=== PATIENT | female | born 1990 | race Caucasian/White ===

== ENCOUNTER 2021-02-22 08:52 | Emergency (ER) | payer BC ==
[2021-02-22 08:57] VITALS: TEMP 97.9
[2021-02-22] MEDS ORDERED: SODIUM CHLORIDE 0.9% 1,000 ML IV STA (09:09)
[2021-02-22 09:30] LABS: Basophils # (A) 0.1 k/uL (0-0.2); Basophils % (A) 1 %; Eosinophils # (A) 0.2 k/uL (0-0.7); Eosinophils % (A) 2 %; HCT 44.8 % (34.0-46.0); HGB 15.2 gm/dL (11.4-16.0); Lymphocytes # (A) 2.1 k/uL (1.0-4.8); Lymphocytes % (A) 22 %; MCH 29.7 pg (25.0-35.0); MCHC 33.8 g/dL (31.0-37.0); Mean Platelet Volume 7.3; Monocytes # (A) 0.4 k/uL (0-1.0); Monocytes % (A) 4 %; Neutrophils # (A) 6.4 k/uL (1.3-7.7); Neutrophils % (A) 68 %; Platelet Count 385 k/uL (150-450); RBC 5.09 m/uL (3.80-5.40); RDW 12.9 % (11.5-15.5); WBC 9.4 k/uL (3.8-10.6)
--- NOTE | 2021-02-22 09:38 | XR ---
EXAMINATION TYPE: XR foot complete LT DATE OF EXAM: 02/22/2021 COMPARISON: None HISTORY: Cellulitis, edema TECHNIQUE: Three-view left foot FINDINGS: There is diffuse soft tissue swelling present most notably along the dorsum of the foot. No underlying osseous abnormalities evident. Joint spaces are preserved. No acute fracture or disloca tion is evident. IMPRESSION: 1. Soft tissue swelling dorsum left foot can be compatible with patient's reported cellulitis. 2. No acute osseous abnormality.
[2021-02-22 09:42] LABS: ALT 31 U/L (4-34); AST 36 U/L (14-36); African American GFR (CKD) >90 (>60 ml/min/1.73 sqM); Albumin 4.7 g/dL (3.5-5.0); Alkaline Phosphatase 77 U/L (38-126); Anion Gap 9 mmol/L; Blood Urea Nitrogen 12 mg/dL (7-17); C Reactive Protein <0.5 mg/dL (<1.0); Calcium 9.6 mg/dL (8.4-10.2); Carbon Dioxide 23 mmol/L (22-30); Chloride 106 mmol/L (98-107); Glucose 105 mg/dL (74-99); Non-African American GFR(CKD) >90 (>60 ml/min/1.73 sqM); Potassium 4.4 mmol/L (3.5-5.1); Sodium 138 mmol/L (137-145); Total Bilirubin 0.6 mg/dL (0.2-1.3); Total Protein 7.9 g/dL (6.3-8.2)
--- NOTE | 2021-02-22 09:46 | ED ---
General Adult HPI - General Chief complaint: Extremity Problem,Nontraumatic Stated complaint: athlete's foot, increased swelling Time Seen by Provider: 02/22/21 08:58 Source: patient Mode of arrival: ambulatory Limitations: no limitations - History of Present Illness Initial comments: 30-year-old female presents to the emergency room for a chief complaint of left foot pain. Patient states for the past 2 days she has had pain mostly in the left second toe as well as the dorsum of the left foot. Patient states that she did go to urgent care and was treated for athlete's foot with a cream. Patient states that the pain has persisted and has not gotten better. Patient denies fevers or chills. Patient denies any medical history such as diabetes.Patient has no other complaints at this time including shortness of breath, chest pain, abdominal pain, nausea or vomiting, headache, or visual changes. - Related Data Previous Rx's Medication Instructions Recorded Cephalexin [Keflex] 500 mg PO Q6HR 10 Days #40 cap 02/22/21 Allergies Allergy/AdvReac Type Severity Reaction Status Date / Time No Known Allergies Allergy Verified 02/22/21 08:57 Review of Systems ROS Statement: Those systems with pertinent positive or pertinent negative responses have been documented in the HPI. ROS Other: All systems not noted in ROS Statement are negative. Past Medical History Past Medical History: No Reported History History of Any Multi-Drug Resistant Organisms: None Reported Past Surgical History: No Surgical Hx Reported Past Psychological History: No Psychological Hx Reported Smoking Status: Never smoker Past Alcohol Use History: None Reported Past Drug Use History: None Reported General Exam Limitations: no limitations General appearance: alert, in no apparent distress Head exam: Present: atraumatic Eye exam: Present: normal appearance, PERRL, EOMI. Absent: scleral icterus ENT exam: Present: normal exam, mucous membranes moist Neck exam: Present: normal inspection, full ROM. Absent: tenderness Respiratory exam: Present: normal lung sounds bilaterally. Absent: respiratory distress, wheezes Cardiovascular Exam: Present: regular rate, normal rhythm, normal heart sounds Extremities exam: Present: full ROM (Full range of motion of the left foot and all digits of the left foot), tenderness (Tenderness to the as well as the left second digit), normal capillary refill (Capillary refill less than 2 seconds, DP pulse 2+ left lower extremity.), other (She does have some mild edema of the left second digit as well as the dorsum of the left foot. Mild erythema to the dorsum of the left foot. No streaking redness.) Course Vital Signs 02/22/21 08:55 Temperature 97.9 F Pulse Rate 67 Respiratory 20 Rate Blood Pressure 145/89 O2 Sat by Pulse 99 Oximetry Medical Decision Making - Medical Decision Making Vitals are stable. HPI and physical exam as documented. Patient does have some mild edema and erythema dorsum of the left foot as well as swelling of the left second toe. Capillary refill less than 2 seconds. CBC CMP unremarkable. X- ray of the left foot does show mild edema. Patient was started on Keflex. She will continue cream for athlete's foot prescribed by urgent care. I did encourage her to keep the foot dry as this does appear to be irritating the toe. If patient's symptoms are not better in 48 hours she is aware she needs to return to the emergency room. - Lab Data Result diagrams: 02/22/21 09:20 02/22/21 09:20 Lab Results 02/22/21 02/22/21 02/22/21 Range/Units 09:20 09:20 09:20 WBC 9.4 (3.8-10.6) k/uL RBC 5.09 (3.80-5.40) m/uL Hgb 15.2 (11.4-16.0) gm/dL Hct 44.8 (34.0-46.0) % MCV 88.0 (80.0-100.0) fL MCH 29.7 (25.0-35.0) pg MCHC 33.8 (31.0-37.0) g/dL RDW 12.9 (11.5-15.5) % Plt Count 385 (150-450) k/uL MPV 7.3 Neutrophils % 68 % Lymphocytes % 22 % Monocytes % 4 % Eosinophils % 2 % Basophils % 1 % Neutrophils # 6.4 (1.3-7.7) k/uL Lymphocytes # 2.1 (1.0-4.8) k/uL Monocytes # 0.4 (0-1.0) k/uL Eosinophils # 0.2 (0-0.7) k/uL Basophils # 0.1 (0-0.2) k/uL Sodium 138 (137-145) mmol/L Potassium 4.4 (3.5-5.1) mmol/L Chloride 106 (98-107) mmol/L Carbon Dioxide 23 (22-30) mmol/L Anion Gap 9 mmol/L BUN 12 (7-17) mg/dL Creatinine 0.76 (0.52-1.04) mg/dL Est GFR (CKD-EPI)AfAm >90 (>60 ml/min/1.73 sqM) Est GFR (CKD-EPI)NonAf >90 (>60 ml/min/1.73 sqM) Glucose 105 H (74-99) mg/dL Plasma Lactic Acid Corby 1.3 (0.7-2.0) mmol/L Calcium 9.6 (8.4-10.2) mg/dL Total Bilirubin 0.6 (0.2-1.3) mg/dL AST 36 (14-36) U/L ALT 31 (4-34) U/L Alkaline Phosphatase 77 (38-126) U/L C-Reactive Protein <0.5 (<1.0) mg/dL Total Protein 7.9 (6.3-8.2) g/dL Albumin 4.7 (3.5-5.0) g/dL Disposition Clinical Impression: Cellulitis Disposition: HOME SELF-CARE Condition: Good Instructions (If sedation given, give patient instructions): Cellulitis (ED) Additional Instructions: Please take antibiotic as directed. Continue to apply cream as directed. Keep foot dry and try not to wear socks and shoes. Return to the emergency room for any worsening symptoms or if symptoms are not improving after 24-48 hours. Prescriptions: Cephalexin [Keflex] 500 mg PO Q6HR 10 Days #40 cap Is patient prescribed a controlled substance at d/c from ED?: No Referrals: Tod Willett MD [Primary Care Provider] - 1-2 days Time of Disposition: 10:15
[2021-02-22] MEDS ORDERED: cefTRIAXone IN SWFI 1,000 MG/10 ML SYRINGE IVP STA (10:15)
[2021-02-22 10:43] VITALS: BP 140/82; PULSE 79; RESP 18
== END 2021-02-22 10:43 | disposition home or self-care (01) ==
LOC: EC 08:52
DX: L03.116 Cellulitis of left lower limb (principal)
CPT/HCPCS: 99283; 96374; 96361; 36415; 80053; 83605; 85025; 86140; 73630; J0696

== ENCOUNTER 2021-02-23 19:25 | Inpatient (IN) | payer BC ==
[2021-02-23] MEDS ORDERED: PIPERACILLIN-TAZOBACTAM 3.375 GM in SODIUM CHLORIDE 0.9% 100 ML IVPB STA (21:27)
[2021-02-23] MEDS ORDERED: VANCOMYCIN IV PER PHARMACY 1 EACH MISC MISCELLANE PRN (21:29)
[2021-02-23] MEDS ORDERED: KETOROLAC 15 MG/ML 1 ML VIAL IVP STA (21:29)
[2021-02-23] MEDS ORDERED: SODIUM CHLORIDE 0.9% 500 ML 500 ML IV ONE (21:30)
[2021-02-23] MEDS ORDERED: VANCOMYCIN 1,500 MG in SODIUM CHLORIDE 0.9% 250 ML IVPB ONE (22:00)
--- NOTE | 2021-02-23 22:00 | XR ---
Result: History: Pain and swelling. Comparison: 02/22/2021. Technique: 3 views of the left foot. Findings: The bone mineralization is appropriate for age. No acute fracture or dislocation is seen. The visualized osseous structures are in anatomic alignmen t. The joint spaces are preserved. No radiographic evidence for osteomyelitis or soft tissue gas. Impression: No acute osseous abnormality or soft tissue gas.
[2021-02-23] MEDS: SODIUM CHLORIDE 0.9% 1,000 ML IV SCH (22:13)
--- NOTE | 2021-02-23 22:13 | ED ---
General Adult HPI - General Chief complaint: Extremity Problem,Nontraumatic Stated complaint: Revisit L Foot Cellulitis Time Seen by Provider: 02/23/21 21:14 Source: patient, RN notes reviewed, old records reviewed Mode of arrival: ambulatory Limitations: no limitations - History of Present Illness Initial comments: 30-year-old female who is otherwise healthy presenting for evaluation of left foot pain and swelling. Patient was treated for cellulitis started on Keflex. She states that her foot is continued to have worsened. She has purulent drain age from the second toe and from the base of the fourth and fifth toe. There is more soft tissue swelling more erythema and more pain. She denies fever or constitutional symptoms. She is a nondiabetic. - Related Data Previous Rx's Medication Instructions Recorded Cephalexin [Keflex] 500 mg PO Q6HR 10 Days #40 cap 02/22/21 Allergies Allergy/AdvReac Type Severity Reaction Status Date / Time No Known Allergies Allergy Verified 02/23/21 23:11 Review of Systems ROS Statement: Those systems with pertinent positive or pertinent negative responses have been documented in the HPI. ROS Other: All systems not noted in ROS Statement are negative. Past Medical History Past Medical History: No Reported History History of Any Multi-Drug Resistant Organisms: None Reported Past Surgical History: No Surgical Hx Reported Past Psychological History: No Psychological Hx Reported Smoking Status: Never smoker Past Alcohol Use History: None Reported Past Drug Use History: None Reported - Past Family History family \ Family Medical History: No Reported History General Exam Limitations: no limitations General appearance: alert, in no apparent distress Head exam: Present: atraumatic, normocephalic Eye exam: Present: normal appearance, PERRL Neck exam: Present: normal inspection. Absent: tenderness, meningismus Respiratory exam: Present: normal lung sounds bilaterally. Absent: respiratory distress Cardiovascular Exam: Present: regular rate, normal rhythm GI/Abdominal exam: Present: soft. Absent: distended, tenderness, guarding Extremities exam: Present: tenderness (Left foot with erythema, soft tissue swelling, purulent drainage. There is no crepitus. There is some induration without fluctuance in the distal left foot.), pedal edema Neurological exam: Present: alert, oriented X3, CN II-XII intact. Absent: motor sensory deficit Psychiatric exam: Present: normal affect, normal mood Skin exam: Present: warm, dry, intact. Absent: cyanosis, diaphoretic Course Vital Signs 02/23/21 02/23/21 02/24/21 19:48 23:28 03:00 Temperature 98.3 F Pulse Rate 75 70 77 Pulse Rate [ Pulse Oximetery ] Respiratory 18 18 18 Rate Blood Pressure 152/82 160/88 108/71 Blood Pressure [Left Arm] O2 Sat by Pulse 98 99 97 Oximetry 02/24/21 02/24/21 02/24/21 06:00 12:00 17:20 Temperature 98.7 F 98.4 F Pulse Rate 78 Pulse Rate [ 70 68 Pulse Oximetery ] Respiratory 16 17 Rate Blood Pressure 102/53 Blood Pressure 111/59 144/86 [Left Arm] O2 Sat by Pulse 97 99 100 Oximetry Medical Decision Making - Medical Decision Making 30-year-old female presenting with worsening left foot infection. She had been treated for cellulitis on outpatient antibiotics without improvement. Workup is initiated including CBC, blood cultures, CMP, lactic acid, CRP and repeat x-ray. Repeat x-rays negative for soft tissue gas. Patient started on Zosyn and vancomycin. Laboratory tests are pending. I did discuss case with Dr. Escobar who will admit. Infectious disease and orthopedics placed on consult. - Lab Data Result diagrams: 02/26/21 05:39 02/26/21 05:39 Lab Results 02/23/21 02/23/21 02/23/21 Range/Units 23:09 23:09 23:09 WBC 11.3 H (3.8-10.6) k/uL RBC 4.71 (3.80-5.40) m/uL Hgb 14.5 (11.4-16.0) gm/dL Hct 41.7 (34.0-46.0) % MCV 88.5 (80.0-100.0) fL MCH 30.7 (25.0-35.0) pg MCHC 34.7 (31.0-37.0) g/dL RDW 12.9 (11.5-15.5) % Plt Count 384 (150-450) k/uL MPV 7.2 Immature Gran % (Auto) % Absolute Nucleated RBC (0.00-0.00) X 10*3/uL Neutrophils % 72 % Lymphocytes % 19 % Monocytes % 5 % Eosinophils % 2 % Basophils % 1 % Immature Gran # (0.00-0.04) X 10*3/uL Neutrophils # 8.1 H (1.3-7.7) k/uL Lymphocytes # 2.1 (1.0-4.8) k/uL Monocytes # 0.6 (0-1.0) k/uL Eosinophils # 0.2 (0-0.7) k/uL Basophils # 0.1 (0-0.2) k/uL NRBC/100 WBC Diff (0.0-0.0) /100 WBCS ESR 9 (0-20) mm/hr PT 11.0 (9.0-12.0) sec INR 1.0 (<1.2) Sodium 137 (137-145) mmol/L Potassium 4.0 (3.5-5.1) mmol/L Chloride 106 (98-107) mmol/L Carbon Dioxide 25 (22-30) mmol/L Anion Gap 6 mmol/L BUN 13 (7-17) mg/dL Creatinine 0.80 (0.52-1.04) mg/dL Est GFR (CKD-EPI)AfAm >90 (>60 ml/min/1.73 sqM) Est GFR (CKD-EPI)NonAf >90 (>60 ml/min/1.73 sqM) BUN/Creatinine Ratio (12.00-20.00) Ratio Glucose 105 H (74-99) mg/dL Plasma Lactic Acid Corby (0.7-2.0) mmol/L Calcium 8.8 (8.4-10.2) mg/dL Total Bilirubin 0.3 (0.2-1.3) mg/dL AST 37 H (14-36) U/L ALT 33 (4-34) U/L Alkaline Phosphatase 74 (38-126) U/L C-Reactive Protein 0.7 (<1.0) mg/dL Total Protein 7.2 (6.3-8.2) g/dL Albumin 4.1 (3.5-5.0) g/dL Globulin (1.6-3.3) g/dL Albumin/Globulin Ratio (1.60-3.17) g/dL Vancomycin Trough ug/mL 02/23/21 02/24/21 02/24/21 Range/Units 23:09 05:47 05:47 WBC 11.0 H (3.8-10.6) k/uL RBC 4.51 (3.80-5.40) m/uL Hgb 13.9 (11.4-16.0) gm/dL Hct 40.3 (34.0-46.0) % MCV 89.3 (80.0-100.0) fL MCH 30.8 (25.0-35.0) pg MCHC 34.5 (31.0-37.0) g/dL RDW 12.3 (11.5-15.5) % Plt Count 312 (150-450) k/uL MPV 7.9 Immature Gran % (Auto) % Absolute Nucleated RBC (0.00-0.00) X 10*3/uL Neutrophils % 67 % Lymphocytes % 24 % Monocytes % 6 % Eosinophils % 2 % Basophils % 0 % Immature Gran # (0.00-0.04) X 10*3/uL Neutrophils # 7.3 (1.3-7.7) k/uL Lymphocytes # 2.7 (1.0-4.8) k/uL Monocytes # 0.6 (0-1.0) k/uL Eosinophils # 0.2 (0-0.7) k/uL Basophils # 0.1 (0-0.2) k/uL NRBC/100 WBC Diff (0.0-0.0) /100 WBCS ESR (0-20) mm/hr PT (9.0-12.0) sec INR (<1.2) Sodium 139 (137-145) mmol/L Potassium 4.2 (3.5-5.1) mmol/L Chloride 108 H (98-107) mmol/L Carbon Dioxide 24 (22-30) mmol/L Anion Gap 7 mmol/L BUN 13 (7-17) mg/dL Creatinine 0.72 (0.52-1.04) mg/dL Est GFR (CKD-EPI)AfAm >90 (>60 ml/min/1.73 sqM) Est GFR (CKD-EPI)NonAf >90 (>60 ml/min/1.73 sqM) BUN/Creatinine Ratio (12.00-20.00) Ratio Glucose 94 (74-99) mg/dL Plasma Lactic Acid Corby 1.1 (0.7-2.0) mmol/L Calcium 8.8 (8.4-10.2) mg/dL Total Bilirubin (0.2-1.3) mg/dL AST (14-36) U/L ALT (4-34) U/L Alkaline Phosphatase (38-126) U/L C-Reactive Protein (<1.0) mg/dL Total Protein (6.3-8.2) g/dL Albumin (3.5-5.0) g/dL Globulin (1.6-3.3) g/dL Albumin/Globulin Ratio (1.60-3.17) g/dL Vancomycin Trough ug/mL 02/25/21 02/25/21 02/25/21 Range/Units 07:04 07:04 15:44 WBC 6.55 (3.8-10.6) k/uL RBC 4.51 (3.80-5.40) m/uL Hgb 13.4 (11.4-16.0) gm/dL Hct 39.9 (34.0-46.0) % MCV 88.5 (80.0-100.0) fL MCH 29.7 (25.0-35.0) pg MCHC 33.6 (31.0-37.0) g/dL RDW 12.3 (11.5-15.5) % Plt Count 352 (150-450) k/uL MPV 10.7 Immature Gran % (Auto) 0.3 % Absolute Nucleated RBC 0 (0.00-0.00) X 10*3/uL Neutrophils % 57.8 % Lymphocytes % 30.8 % Monocytes % 7.6 % Eosinophils % 2.7 % Basophils % 0.8 % Immature Gran # 0.02 (0.00-0.04) X 10*3/uL Neutrophils # 3.78 (1.3-7.7) k/uL Lymphocytes # 2.02 (1.0-4.8) k/uL Monocytes # 0.50 (0-1.0) k/uL Eosinophils # 0.18 (0-0.7) k/uL Basophils # 0.05 (0-0.2) k/uL NRBC/100 WBC Diff 0 (0.0-0.0) /100 WBCS ESR (0-20) mm/hr PT (9.0-12.0) sec INR (<1.2) Sodium 139 (137-145) mmol/L Potassium 4.6 (3.5-5.1) mmol/L Chloride 107 (98-107) mmol/L Carbon Dioxide 23.8 (22-30) mmol/L Anion Gap 8.20 mmol/L BUN 11.0 (7-17) mg/dL Creatinine 0.7 (0.52-1.04) mg/dL Est GFR (CKD-EPI)AfAm 132.9 (>60 ml/min/1.73 sqM) Est GFR (CKD-EPI)NonAf 114.6 (>60 ml/min/1.73 sqM) BUN/Creatinine Ratio 15.71 (12.00-20.00) Ratio Glucose 93 (74-99) mg/dL Plasma Lactic Acid Corby (0.7-2.0) mmol/L Calcium 9.0 (8.4-10.2) mg/dL Total Bilirubin 0.3 (0.2-1.3) mg/dL AST 28 (14-36) U/L ALT 33 (4-34) U/L Alkaline Phosphatase 59 (38-126) U/L C-Reactive Protein (<1.0) mg/dL Total Protein 6.4 (6.3-8.2) g/dL Albumin 3.90 (3.5-5.0) g/dL Globulin 2.5 (1.6-3.3) g/dL Albumin/Globulin Ratio 1.56 L (1.60-3.17) g/dL Vancomycin Trough 16.3 ug/mL 02/26/21 02/26/21 Range/Units 05:39 05:39 WBC 6.55 (3.8-10.6) k/uL RBC 4.31 (3.80-5.40) m/uL Hgb 12.4 (11.4-16.0) gm/dL Hct 37.5 (34.0-46.0) % MCV 87.0 (80.0-100.0) fL MCH 28.8 (25.0-35.0) pg MCHC 33.1 (31.0-37.0) g/dL RDW 12.4 (11.5-15.5) % Plt Count 339 (150-450) k/uL MPV 10.6 Immature Gran % (Auto) 0.2 % Absolute Nucleated RBC 0 (0.00-0.00) X 10*3/uL Neutrophils % 52.4 % Lymphocytes % 33.4 % Monocytes % 9.6 % Eosinophils % 3.2 % Basophils % 1.2 % Immature Gran # 0.01 (0.00-0.04) X 10*3/uL Neutrophils # 3.43 (1.3-7.7) k/uL Lymphocytes # 2.19 (1.0-4.8) k/uL Monocytes # 0.63 (0-1.0) k/uL Eosinophils # 0.21 (0-0.7) k/uL Basophils # 0.08 (0-0.2) k/uL NRBC/100 WBC Diff 0 (0.0-0.0) /100 WBCS ESR (0-20) mm/hr PT (9.0-12.0) sec INR (<1.2) Sodium 141 (137-145) mmol/L Potassium 4.3 (3.5-5.1) mmol/L Chloride 106 (98-107) mmol/L Carbon Dioxide 30.0 (22-30) mmol/L Anion Gap 5.00 mmol/L BUN 13.0 (7-17) mg/dL Creatinine 0.9 (0.52-1.04) mg/dL Est GFR (CKD-EPI)AfAm 98.1 (>60 ml/min/1.73 sqM) Est GFR (CKD-EPI)NonAf 84.6 (>60 ml/min/1.73 sqM) BUN/Creatinine Ratio 14.44 (12.00-20.00) Ratio Glucose 94 (74-99) mg/dL Plasma Lactic Acid Corby (0.7-2.0) mmol/L Calcium 8.8 (8.4-10.2) mg/dL Total Bilirubin 0.4 (0.2-1.3) mg/dL AST 26 (14-36) U/L ALT 33 (4-34) U/L Alkaline Phosphatase 50 (38-126) U/L C-Reactive Protein (<1.0) mg/dL Total Protein 5.9 L (6.3-8.2) g/dL Albumin 3.70 L (3.5-5.0) g/dL Globulin 2.2 (1.6-3.3) g/dL Albumin/Globulin Ratio 1.68 (1.60-3.17) g/dL Vancomycin Trough ug/mL Disposition Clinical Impression: Infection of left foot, Cellulitis Disposition: ADMITTED IP TO THIS HOSP Condition: Stable Is patient prescribed a controlled substance at d/c from ED?: No Decision to Admit Reason: Admit from EC Decision Date: 02/23/21 Decision Time: 22:16
[2021-02-23] MEDS ORDERED: NALOXONE 0.4 MG/ML 1 ML VIAL IV PRN (22:17)
[2021-02-23] MEDS ORDERED: MORPHINE SULFATE 4 MG/ML SYRINGE IV PRN (22:17)
[2021-02-23 23:36] LABS: Basophils # (A) 0.1 k/uL (0-0.2); Basophils % (A) 1 %; Eosinophils # (A) 0.2 k/uL (0-0.7); Eosinophils % (A) 2 %; HCT 41.7 % (34.0-46.0); HGB 14.5 gm/dL (11.4-16.0); Lymphocytes # (A) 2.1 k/uL (1.0-4.8); Lymphocytes % (A) 19 %; MCH 30.7 pg (25.0-35.0); MCHC 34.7 g/dL (31.0-37.0); MCV 88.5 fL (80.0-100.0); Mean Platelet Volume 7.2; Monocytes # (A) 0.6 k/uL (0-1.0); Monocytes % (A) 5 %; Neutrophils # (A) 8.1 k/uL (1.3-7.7); Neutrophils % (A) 72 %; Platelet Count 384 k/uL (150-450); RBC 4.71 m/uL (3.80-5.40); RDW 12.9 % (11.5-15.5); WBC 11.3 k/uL (3.8-10.6)
[2021-02-23 23:53] LABS: ALT 33 U/L (4-34); AST 37 U/L (14-36); African American GFR (CKD) >90 (>60 ml/min/1.73 sqM); Albumin 4.1 g/dL (3.5-5.0); Alkaline Phosphatase 74 U/L (38-126); Anion Gap 6 mmol/L; Blood Urea Nitrogen 13 mg/dL (7-17); C Reactive Protein 0.7 mg/dL (<1.0); Calcium 8.8 mg/dL (8.4-10.2); Carbon Dioxide 25 mmol/L (22-30); Chloride 106 mmol/L (98-107); Glucose 105 mg/dL (74-99); Non-African American GFR(CKD) >90 (>60 ml/min/1.73 sqM); Sodium 137 mmol/L (137-145); Total Bilirubin 0.3 mg/dL (0.2-1.3); Total Protein 7.2 g/dL (6.3-8.2)
--- NOTE | 2021-02-24 00:08 | P.HPIM ---
History of Present Illness H&P Date: 02/23/21 Chief Complaint: left foot pain and swelling 30 year old female with no significant past medical history patient comes in with worsening swelling and pain of the left foot , this has been going on for few days since the weekend , she did receive Keflex prescription yesterday , with no much improvement , she decided to come in today due to worsening swelling and pain . with purulent discharge form wounds over her 4th and 2nd toe she is known to have athlete foot, however, denies any injuries or stepping on any foreign bodies, she denies any history of DM or cellulitis of the foot. she denies any fever, chills. but noticed that today despite couple doses of antibi otics , that the swelling and pain were worsening and she decided to come in for further evaluation she denies any MENG, chest pain , headache, dizziness, nausea or vomiting , denies any abd pain , changes in her urinary or bowel habits in the ED workup showed leukocytosis , no fever, foot xray , no ras involvement Review of Systems Pertinent positives as noted in HPI. All other systems were reviewed and are negative Past Medical History Past Medical History: No Reported History History of Any Multi-Drug Resistant Organisms: None Reported Past Surgical History: No Surgical Hx Reported Past Psychological History: No Psychological Hx Reported Smoking Status: Never smoker Past Alcohol Use History: None Reported Past Drug Use History: None Reported - Past Family History family \ Family Medical History: No Reported History Medications and Allergies Home Medications Medication Instructions Recorded Confirmed Type Cephalexin [Keflex] 500 mg PO Q6HR 10 Days #40 cap 02/22/21 02/23/21 Rx Allergies Allergy/AdvReac Type Severity Reaction Status Date / Time No Known Allergies Allergy Verified 02/23/21 23:11 Physical Exam Vitals: Vital Signs Temp Pulse Resp BP Pulse Ox 02/23/21 19:48 98.3 F 75 18 152/82 98 Intake and Output 02/23/21 02/23/21 02/23/21 06:59 14:59 22:59 Other: Weight 77.111 kg Constitutional: No acute distress, conversant, pleasant Eyes: Anicteric sclerae, moist conjunctiva, Pupils equal round reactive to light ENMT: NC/AT Oropharynx clear, no erythema, or exudates Neck: Supple, FROM, no masses, or JVD No carotid bruits No thyromegaly Lungs: Clear to auscultation Clear to percussion Normal respiratory effort, no accessory muscle use Cardiovascular: Heart regular in rate and rhythm, No murmurs, gallops, or rubs No peripheral edema Abdominal: Soft Nontender, no guarding, rebound or rigidity Abdomen moving with respiration Normoactive bowel sounds No hepatomegaly, No splenomegaly No palpable mass No abdominal wall hernia noted Skin: swelling of the left foot involving all toes and up to mid foot, with minimal erythema over the base of the toes. tender to palpation warm to the touch , with purulent discharge from wound over the 4th and 2nd toe. Extremities: No digital cyanosis No clubbing Pedal pulses intact and symmetrical Radial pulses intact and symmetrical No calf tenderness Psychiatric: Alert and oriented to person, place and time Appropriate affect fair judgement Neuro Muscles Strength 5/5 in all 4 extremities Sensation to light touch grossly present throughout Cranial nerves II-XII grossly intact No focal sensory deficits Lymphatics: no palpable cervical or supraclavicular , or inguinal lymph nodes Results CBC & Chem 7: 02/23/21 23:09 02/23/21 23:09 Assessment and Plan Assessment: left foot cellulitis ,failed oP therapy hypertension not currently on medications plan follow up cultures continue with current antibiotics with zosyn and vanco follow up ID recommendations CRP negative await ESR foot xray did not show ras involvement IVF hydration with normal saline pain control with opiates DVT PPX hearin sc tid monitor blood pressure , if persistently high with systolic > 160 , then consider starting antihypertensive meds like amlodipine full code anticipated length of stay less than 2 midnights anticipated discharge home
[2021-02-24 01:40] LABS: Erythrocyte Sedimentation Rate 9 mm/hr (0-20)
[2021-02-24] MEDS: HEPARIN SODIUM,PORCINE/PF 5,000 UNIT/0.5 ML SYRINGE SQ SCH ×3 (04:20→15:41)
[2021-02-24] MEDS: VANCOMYCIN 1,500 MG in SODIUM CHLORIDE 0.9% 250 ML IVPB SCH ×2 (04:50→15:41)
[2021-02-24] MEDS ORDERED: VANCOMYCIN 1,500 MG in SODIUM CHLORIDE 0.9% 250 ML IVPB ONE (05:00)
[2021-02-24] MEDS: PIPERACILLIN-TAZOBACTAM 3.375 GM in SODIUM CHLORIDE 0.9% 100 ML IVPB SCH ×2 (05:29→12:03)
[2021-02-24 07:09] LABS: Basophils # (A) 0.1 k/uL (0-0.2); Basophils % (A) 0 %; Eosinophils # (A) 0.2 k/uL (0-0.7); Eosinophils % (A) 2 %; HCT 40.3 % (34.0-46.0); HGB 13.9 gm/dL (11.4-16.0); Lymphocytes # (A) 2.7 k/uL (1.0-4.8); Lymphocytes % (A) 24 %; MCH 30.8 pg (25.0-35.0); MCHC 34.5 g/dL (31.0-37.0); MCV 89.3 fL (80.0-100.0); Mean Platelet Volume 7.9; Monocytes # (A) 0.6 k/uL (0-1.0); Monocytes % (A) 6 %; Neutrophils # (A) 7.3 k/uL (1.3-7.7); Neutrophils % (A) 67 %; Platelet Count 312 k/uL (150-450); RBC 4.51 m/uL (3.80-5.40); RDW 12.3 % (11.5-15.5)
[2021-02-24 07:20] LABS: African American GFR (CKD) >90 (>60 ml/min/1.73 sqM); Anion Gap 7 mmol/L; Blood Urea Nitrogen 13 mg/dL (7-17); Calcium 8.8 mg/dL (8.4-10.2); Carbon Dioxide 24 mmol/L (22-30); Chloride 108 mmol/L (98-107); Glucose 94 mg/dL (74-99); Non-African American GFR(CKD) >90 (>60 ml/min/1.73 sqM); Potassium 4.2 mmol/L (3.5-5.1); Sodium 139 mmol/L (137-145)
--- NOTE | 2021-02-24 14:44 | P.PN ---
Subjective Progress Note Date: 02/24/21 Feels okay, no chest pain no abdominal pain no nausea no vomiting no dizziness. Remains afebrile. Objective - Vital Signs Vital signs: Vital Signs Temp 98.7 F 02/24/21 12:00 Pulse 70 02/24/21 12:00 Resp 16 02/24/21 06:00 BP 111/59 02/24/21 12:00 Pulse Ox 99 02/24/21 12:00 Intake & Output 02/23/21 02/24/21 02/24/21 18:59 06:59 18:59 Weight 77.111 kg Other: Voiding Method Toilet - Exam Constitutional: No acute distress, conversant, pleasant Eyes: Anicteric sclerae, moist conjunctiva, no lid-lag, PERRLA ENMT: NC/AT,Oropharynx clear Neck:Supple, FROM, no masses, or JVD, No carotid bruits; No thyromegaly Lungs: Clear to auscultation, Clear to percussion, Normal respiratory effort, no accessory muscle use Cardiovascular: Heart regular in rate and rhythm, No murmurs, gallops, or rubs no peripheral edema Abdominal: Soft Nontender, nom distended, no guarding, no rebound or rigidity, Normoactive bowel sounds No hepatomegaly, No splenomegaly, No palpable mass No abdominal wall hernia noted Skin: Normal temperature, left foot cellulitis Extremities:No digital cyanosis No clubbing, Pedal pulses intact and symmetrical Radial pulses intact and symmetrical Normal gait and station, No calf tenderness Psychiatric: Alert and oriented to person, place and time, Appropriate affect Intact judgement Neuro: Muscles Strength 5/5 in all 4 extremities, Sensation to light touch grossly present throughout, Cranial nerves II-XII grossly intact. No focal sensory deficits - Labs CBC & Chem 7: 02/24/21 05:47 02/24/21 05:47 Labs: Abnormal Lab Results - Last 24 Hours (Table) 02/23/21 02/23/21 02/24/21 Range/Units 23:09 23:09 05:47 WBC 11.3 H 11.0 H (3.8-10.6) k/uL Neutrophils # 8.1 H (1.3-7.7) k/uL Chloride (98-107) mmol/L Glucose 105 H (74-99) mg/dL AST 37 H (14-36) U/L 02/24/21 Range/Units 05:47 WBC (3.8-10.6) k/uL Neutrophils # (1.3-7.7) k/uL Chloride 108 H (98-107) mmol/L Glucose (74-99) mg/dL AST (14-36) U/L Microbiology - Last 24 Hours (Table) 02/23/21 22:05 Wound Culture - Preliminary Foot - Left Assessment and Plan Plan: 1. left foot cellulitis ,failed outpatient therapy : Continue IV antibiotics with vancomycin and Zosyn, infectious disease consultation. Orthopedics consult ation. 2. Leukocytosis secondary to infection: WBC stable at 11,000 3. Essential hypertension: On medications 4. Obesity: BMI 32.1 Disposition: Pending clinical progression home once clinically better.
[2021-02-24] MEDS: SODIUM CHLORIDE 0.9% 1,000 ML IV SCH (16:42)
[2021-02-24] MEDS: ACETAMINOPHEN TAB 325 MG TAB PO PRN (17:28)
[2021-02-24] MEDS: NYSTATIN 100,000 UNIT/GM POWD 15 GM TOPICAL SCH (21:48)
[2021-02-24] MEDS: CEFEPIME 2 GM in SODIUM CHLORIDE 0.9% 100 ML IVPB SCH (21:48)
--- NOTE | 2021-02-24 23:45 | P.CONS ---
History of Present Illness - Reason for Consult Consult date: 02/24/21 left foot cellulitis Requesting physician: Krupa Fuller - Chief Complaint left foot pain and swelling x few days - History of Present Illness History of present illness : Patient is a 30-year-old female presenting to the ER last night for evaluation of worsening pain and swelling to the left foot patient symptoms started over the weekend patient denies having a history of any trauma patient noticed to having increasing swelling redness to the left foot area describing the pain to be throbbing intensity 5-6 over 10 and worse with walking patient did received Keflex prescription yesterday however he did not have any improvement after 1 or 2 doses patient also noted to have some purulent drainage from the left toe with the symptoms and the patient has been evaluated by ER physician on arrival to the ER patient was afebrile and no fever has been recorded subsequently patient did have white count of 11.3 with a left shift kidney function has been normal blood culture has been obtained which are currently pending patient was started on vancomycin and Zosyn has been admitted to hospital infectious he was consulted for further management of antibiotic t herapy Review of system: CONSTITUTIONAL: Positive for weakness along with the fever. EYES: No complaint. ENT: No complaint. RESPIRATORY: No complaint. CARDIOVASCULAR: No complaint. GENITOURINARY: No complaint. GASTROINTESTINAL: No complaint. MUSCULOSKELETAL: As per history of present illness. INTEGUMENTARY: As per history of present illness. PSYCHOLOGIC: No complaint. ENDOCRINE: No complaint. NEUROLOGIC: No complaint. Past medical history : Reviewed, documented below Past surgical history : Reviewed, documented below Social history: Reviewed, documented below Medications: Reviewed, as documented below EXAMINATION: Vital sigans= Reviewed and documented below GENERAL DESCRIPTION: Middle-aged female lying in bed, no distress. No tachypnea or accessory muscle of respiration use. HEENT: Shows Pallor , no scleral icterus. Oral mucous membrane is dry. NECK: Trachea central, no thyromegaly. LUNGS: Unlabored breathing. Clear to auscultation anteriorly. No wheeze or crackle. HEART: S1, S2, regular rate and rhythm. ABDOMEN: Soft, no tenderness , guarding or rigidity EXTREMITIES: No edema of feet. Patient did have extensive left athlete's foot with evidence of swelling and redness on the dorsal aspect of the left foot with some purulent drainage from her second toe which was cultured SKIN: No rash, no masses palpable. NEUROLOGICAL: The patient is awake, alert, oriented x3, mood and affect normal. LABS AND RADIOLOGY: Reviewed results see below Assessment : Patient admitted to hospital with left foot cellulitis this patient who did have extensive left athlete's foot and a small abscess that was noticed on the lateral aspect of her left second toe will need to cover for the gram- positive skin cindy to the likely pathogen gram-negative infection less likely but not at excluded Plan: 1-we will obtain a CT of the foot to make sure no evidence of any abscess that may need to be drained 2-vancomycin pharmacy to dose her with a target trough of 15 while watching her kidney function and Vanco trough closely. 3-discontinue Zosyn to decrease risk of nephrotoxicity and and cefepime 2 g every 8 hour 4-nystatin powder in between the toes twice a day We will follow on clinical condition and cultures to further adjust medication if needed Thank you for this consultation we will follow the patient along with you Past Medical History Past Medical History: No Reported History History of Any Multi-Drug Resistant Organisms: None Reported Past Surgical History: No Surgical Hx Reported Past Psychological History: No Psychological Hx Reported Smoking Status: Never smoker Past Alcohol Use History: None Reported Past Drug Use History: None Reported - Past Family History family \ Family Medical History: No Reported History Medications and Allergies Home Medications Medication Instructions Recorded Confirmed Type Cephalexin [Keflex] 500 mg PO Q6HR 10 Days #40 cap 02/22/21 02/23/21 Rx Allergies Allergy/AdvReac Type Severity Reaction Status Date / Time No Known Allergies Allergy Verified 02/23/21 23:11 Physical Exam Vitals: Vital Signs Temp Pulse Pulse Resp BP BP Pulse Ox 02/24/21 12:00 98.7 F 70 111/59 99 02/24/21 06:00 78 16 102/53 97 02/24/21 03:00 77 18 108/71 97 02/23/21 23:28 70 18 160/88 99 02/23/21 19:48 98.3 F 75 18 152/82 98 Intake and Output 02/24/21 02/24/21 02/24/21 06:59 14:59 22:59 Intake Total 100 Balance 100 Intake: Intake, IV Titration 100 Amount Piperacillin-Tazobactam 3 100 .375 gm In Sodium Chloride 0.9% 100 ml @ 25 mls/hr IVPB Q8H [facility] Rx#: [id number] Other: Voiding Method Toilet # Voids 2 Results CBC & Chem 7: 02/24/21 05:47 02/24/21 05:47 Labs: Abnormal Lab Results - Last 24 Hours (Table) 02/23/21 02/23/21 02/24/21 Range/Units 23:09 23:09 05:47 WBC 11.3 H 11.0 H (3.8-10.6) k/uL Neutrophils # 8.1 H (1.3-7.7) k/uL Chloride (98-107) mmol/L Glucose 105 H (74-99) mg/dL AST 37 H (14-36) U/L 02/24/21 Range/Units 05:47 WBC (3.8-10.6) k/uL Neutrophils # (1.3-7.7) k/uL Chloride 108 H (98-107) mmol/L Glucose (74-99) mg/dL AST (14-36) U/L Microbiology - Last 24 Hours (Table) 02/24/21 09:37 Wound Culture - Preliminary Toe - Left Second 02/23/21 22:05 Wound Culture - Preliminary Foot - Left
[2021-02-25] MEDS: VANCOMYCIN 1,500 MG in SODIUM CHLORIDE 0.9% 250 ML IVPB SCH ×4 (00:49→23:12)
[2021-02-25] MEDS: HEPARIN SODIUM,PORCINE/PF 5,000 UNIT/0.5 ML SYRINGE SQ SCH ×4 (00:50→23:12)
[2021-02-25] MEDS: SODIUM CHLORIDE 0.9% 1,000 ML IV SCH ×2 (00:50→13:15)
--- NOTE | 2021-02-25 01:44 | CT ---
EXAMINATION TYPE: CT foot LT w con DATE OF EXAM: 02/24/2021 COMPARISON: None HISTORY: Possible abscess from athlete's foot. Drainage from 2nd toe. CT DLP: 228.8 mGycm Automated exposure control for dose reduction was used. CONTRAST: Performed with IV Contrast, patient injected with 100 mL of Isovue 300. Images obtained from the lower tibia to the bottom of the foot with IV contrast. There is diffuse subcutaneous edema around the foot. This is seen more on the dorsum of the foot. The metatarsals are intact. The toes appear intact. I see no focal bone destruction. There is no fractur e nor dislocation. There is some soft tissue swelling around the second toe and to a lesser extent th e other toes. I see no discrete drainable fluid collection. The hindfoot appears intact. Ankle mortis e is anatomic I see no pathologic enhancement. There is arterial flow demonstrated in the dorsalis pe dis artery and the posterior tibial artery. There is flow seen in the digital arteries. I see no evid ence of hemodynamic stenosis. IMPRESSION: Subcutaneous edema consistent with cellulitis or lymphedema. Soft tissue swelling around the second t oe. No evidence of osteomyelitis. No fracture. No discrete drainable fluid collection seen.
[2021-02-25] MEDS: CEFEPIME 2 GM in SODIUM CHLORIDE 0.9% 100 ML IVPB SCH ×2 (03:35→13:13)
[2021-02-25] MEDS ORDERED: VANCOMYCIN TROUGH DUE 1 EACH MISC MISCELLANE ONE ×2 (04:00→15:00)
[2021-02-25 11:45] LABS: Basophils # (A) 0.05 X 10*3/uL (0.00-0.10); Basophils % (A) 0.8 %; Eosinophils # (A) 0.18 X 10*3/uL (0.04-0.35); Eosinophils % (A) 2.7 %; HCT 39.9 % (37.2-46.3); HGB 13.4 g/dL (12.0-15.0); Lymphocytes # (A) 2.02 X 10*3/uL (0.90-5.00); Lymphocytes % (A) 30.8 %; MCH 29.7 pg (27.0-32.0); MCHC 33.6 g/dL (32.0-37.0); MCV 88.5 fL (80.0-97.0); Mean Platelet Volume 10.7 fL (9.5-12.2); Monocytes % (A) 7.6 %; Neutrophils # (A) 3.78 X 10*3/uL (1.80-7.70); Neutrophils % (A) 57.8 %; Platelet Count 352 X 10*3/uL (140-440); RBC 4.51 X 10*6/uL (4.10-5.20); RDW 12.3 % (11.5-14.5); WBC 6.55 X 10*3/uL (4.50-10.00)
[2021-02-25 12:12] LABS: African American GFR (CKD) 132.9 (60.0-200.0); Albumin 3.9 g/dL (3.80-4.90); Albumin/Globulin Ratio 1.56 (1.60-3.17); Anion Gap 8.2 mmol/L (4.00-12.00); BUN/Creat Ratio 15.71 Ratio (12.00-20.00); Carbon Dioxide 23.8 mmol/L (21.6-31.8); Globulin 2.5 g/dL (1.6-3.3); Non-African American GFR(CKD) 114.6 (60.0-200.0); Potassium 4.6 mmol/L (3.5-5.5); Total Bilirubin 0.3 mg/dL (0.2-1.2); Total Protein 6.4 g/dL (6.2-8.2)
[2021-02-25] MEDS: NYSTATIN 100,000 UNIT/GM POWD 15 GM TOPICAL SCH ×2 (13:13→21:31)
--- NOTE | 2021-02-25 14:13 | P.PN ---
Subjective Progress Note Date: 02/25/21 Feels okay, no chest pain no abdominal pain no nausea no vomiting no dizziness. Remains afebrile. No dizziness Objective - Vital Signs Vital signs: Vital Signs Temp 98.0 F 02/25/21 07:00 Pulse 69 02/25/21 07:00 Resp 17 02/25/21 07:00 BP 124/76 02/25/21 07:00 Pulse Ox 100 02/25/21 07:00 Intake & Output 02/24/21 02/25/21 02/25/21 18:59 06:59 18:59 Intake Total 100 118 Balance 100 118 Weight 77.111 kg Intake: Intake, IV Titration 100 Amount Piperacillin-Tazobactam 3 100 .375 gm In Sodium Chloride 0.9% 100 ml @ 25 mls/hr IVPB Q8H [facility] Rx#: [id number] Oral 118 Other: Voiding Method Toilet Toilet # Voids 2 1 - Exam Constitutional: No acute distress, conversant, pleasant Eyes: Anicteric sclerae, moist conjunctiva, no lid-lag, PERRLA ENMT: NC/AT Neck:Supple, FROM, no masses, or JVD, No carotid bruits; No thyromegaly Lungs: Clear to auscultation, Clear to percussion, Normal respiratory effort, no accessory muscle use Cardiovascular: Heart regular in rate and rhythm, No murmurs, gallops, or rubs no peripheral edema Abdominal: Soft Nontender, nom distended, no guarding, no rebound or rigidity, Normoactive bowel sounds No hepatomegaly, No splenomegaly, No palpable mass No abdominal wall hernia noted Skin: Normal temperature, left foot cellulitis Extremities:No digital cyanosis No clubbing, Pedal pulses intact and symmetrical Radial pulses intact and symmetrical Normal gait and station, No calf tenderness Psychiatric: Alert and oriented to person, place and time, Appropriate affect Intact judgement Neuro: Muscles Strength 5/5 in all 4 extremities, Sensation to light touch grossly present throughout, Cranial nerves II-XII grossly intact. - Labs CBC & Chem 7: 02/25/21 07:04 02/25/21 07:04 Labs: Abnormal Lab Results - Last 24 Hours (Table) 02/25/21 Range/Units 07:04 Albumin/Globulin Ratio 1.56 L (1.60-3.17) g/dL Microbiology - Last 24 Hours (Table) 02/24/21 09:37 Gram Stain - Preliminary Toe - Left Second Wound Culture - Preliminary Presumptive Staph aureus 02/23/21 22:05 Gram Stain - Preliminary Foot - Left Wound Culture - Preliminary Presumptive MRSA 02/23/21 22:05 Blood Culture - Preliminary Blood No Growth after 24 hours Assessment and Plan Plan: 1. left foot cellulitis ,failed outpatient therapy : Continue IV antibiotics with vancomycin infectious disease consultation input appreciated. Left foot CT consistent with cellulitis without osteomyelitis 2. Leukocytosis secondary to infection: WBC normalized 3. Essential hypertension: On medications 4. Obesity: BMI 32.1 Disposition: Pending clinical progression home once clinically better. Continue IV antibiotics. Changed inpatient.
--- NOTE | 2021-02-25 17:28 | PN ---
PROGRESS NOTE DATE OF SERVICE: 02/25/2021 REASON FOR FOLLOWUP: Left foot cellulitis and second toe abscess. INTERVAL HISTORY: Patient is afebrile. The patient is complaining of more pain to her left second toe area. Did have purulent drainage. The swelling and redness on the dorsum aspect of the foot is slightly decreased. No chest pain, shortness of breath or cough. No abdominal pain or diarrhea. PHYSICAL EXAMINATION: Blood pressure 127/75 with pulse of 78. Temperature 98.7. She is 100% on room air. General description is a middle-aged female lying in bed in no distress. Respiratory system: Unlabored breathing, clear to auscultation anteriorly. Heart S1, S2. Regular rate and rhythm. Abdomen soft, no tenderness. Left foot dorsum swelling and redness has decreased. The 2nd toe he did have more swelling and purulent drainage. LABS: Hemoglobin 13.1, white count 6.5, BUN of 11, creatinine 0.7. Culture with presumptive MRSA. DIAGNOSTIC IMPRESSION AND PLAN: Patient with left second toe abscess and secondary cellulitis of the left foot. Culture with MRSA to continue with vancomycin. Discontinue cefepime. Obtain consult with Dr. Capps for possible I and D of the left second toe abscess and continue supportive care. MMODL / IJN: [id number] /
[2021-02-26] MEDS: SODIUM CHLORIDE 0.9% 1,000 ML IV SCH ×2 (03:22→16:16)
[2021-02-26] MEDS: VANCOMYCIN 1,500 MG in SODIUM CHLORIDE 0.9% 250 ML IVPB SCH ×2 (07:27→16:10)
[2021-02-26] MEDS: HEPARIN SODIUM,PORCINE/PF 5,000 UNIT/0.5 ML SYRINGE SQ SCH ×2 (07:28→16:10)
[2021-02-26] MEDS: NYSTATIN 100,000 UNIT/GM POWD 15 GM TOPICAL SCH ×2 (07:28→20:16)
[2021-02-26] MEDS: ACETAMINOPHEN TAB 325 MG TAB PO PRN ×2 (07:36→19:38)
[2021-02-26 09:15] LABS: Basophils # (A) 0.08 X 10*3/uL (0.00-0.10); Basophils % (A) 1.2 %; Eosinophils # (A) 0.21 X 10*3/uL (0.04-0.35); Eosinophils % (A) 3.2 %; HCT 37.5 % (37.2-46.3); HGB 12.4 g/dL (12.0-15.0); Lymphocytes # (A) 2.19 X 10*3/uL (0.90-5.00); Lymphocytes % (A) 33.4 %; MCH 28.8 pg (27.0-32.0); MCHC 33.1 g/dL (32.0-37.0); Mean Platelet Volume 10.6 fL (9.5-12.2); Monocytes # (A) 0.63 X 10*3/uL (0.20-1.00); Monocytes % (A) 9.6 %; Neutrophils # (A) 3.43 X 10*3/uL (1.80-7.70); Neutrophils % (A) 52.4 %; Platelet Count 339 X 10*3/uL (140-440); RBC 4.31 X 10*6/uL (4.10-5.20); RDW 12.4 % (11.5-14.5); WBC 6.55 X 10*3/uL (4.50-10.00)
[2021-02-26 10:32] LABS: African American GFR (CKD) 98.1 (60.0-200.0); Albumin 3.7 g/dL (3.80-4.90); Albumin/Globulin Ratio 1.68 (1.60-3.17); BUN/Creat Ratio 14.44 Ratio (12.00-20.00); Calcium 8.8 mg/dL (8.7-10.3); Globulin 2.2 g/dL (1.6-3.3); Non-African American GFR(CKD) 84.6 (60.0-200.0); Potassium 4.3 mmol/L (3.5-5.5); Total Bilirubin 0.4 mg/dL (0.2-1.2); Total Protein 5.9 g/dL (6.2-8.2)
[2021-02-26] MEDS ORDERED: LIDOCAINE 1% INJ 10MG/ML (20 ML MDV) SQ ONE (12:32)
--- NOTE | 2021-02-26 13:32 | P.PN ---
Subjective Progress Note Date: 02/26/21 Principal diagnosis: Cellulitis Patient is a 30-year-old female who presented to the hospital recently with worsening pain and swelling of the left foot. Patient has medical history of recurrent severe athlete's foot. Patient was admitted to the hospital for acute cellulitis. Patient was evaluated by infectious disease team whom recommended surgical evaluation for possible abscess I&D involving the left second toe. Patient is currently on IV antibiotics vancomycin. With infectious disease following for further recommendations. 02/26/2021: Patient seen and examined she has no new complaints today no nausea vomiting fever chills chest pain or shortness of breath she continues to remain on IV vancomycin. Objective - Vital Signs Vital signs: Vital Signs Temp 97.9 F 02/26/21 07:00 Pulse 66 02/26/21 08:00 Resp 18 02/26/21 08:00 BP 138/81 02/26/21 07:00 Pulse Ox 100 02/26/21 07:00 Intake & Output 02/25/21 02/26/21 02/26/21 18:59 06:59 18:59 Intake Total 1158 Balance 1158 Intake: Intake, IV Titration 950 Amount Cefepime 2 gm In Sodium 100 Chloride 0.9% 100 ml @ 25 mls/hr IVPB Q8H [facility] Rx#: [id number] Sodium Chloride 0.9% 1, 600 000 ml @ 75 mls/hr IV . [id number] [facility] Rx#:[id number] Vancomycin 1,500 mg In 250 Sodium Chloride 0.9% 250 ml @ 125 mls/hr IVPB Q8HR [facility] Rx#:[id number] Oral 208 Other: Voiding Method Toilet Toilet # Voids 1 1 - Exam Constitutional: No acute distress, conversant, pleasant Eyes: Anicteric sclerae, moist conjunctiva, no lid-lag, PERRLA ENMT: NC/AT Neck:Supple, FROM, no masses, or JVD, No carotid bruits; No thyromegaly Lungs: Clear to auscultation, Clear to percussion, Normal respiratory effort, no accessory muscle use Cardiovascular: Heart regular in rate and rhythm, No murmurs, gallops, or rubs no peripheral edema Abdominal: Soft Nontender, nom distended, no guarding, no rebound or rigidity, Normoactive bowel sounds No hepatomegaly, No splenomegaly, No palpable mass No abdominal wall hernia noted Skin: Normal temperature, left foot cellulitis Extremities: Patient has evidence of extensive left athlete's foot with evidence of some swelling. She has some wound/abscess formation involving the second toe Psychiatric: Alert and oriented to person, place and time, Appropriate affect Intact judgement Neuro: Muscles Strength 5/5 in all 4 extremities, Sensation to light touch grossly present throughout, Cranial nerves II-XII grossly intact. - Labs CBC & Chem 7: 02/26/21 05:39 02/26/21 05:39 Labs: Abnormal Lab Results - Last 24 Hours (Table) 02/26/21 Range/Units 05:39 Total Protein 5.9 L (6.2-8.2) g/dL Albumin 3.70 L (3.80-4.90) g/dL Microbiology - Last 24 Hours (Table) 02/24/21 09:37 Gram Stain - Final Toe - Left Second Wound Culture - Final Methicillin resist S. aureus 02/23/21 22:05 Gram Stain - Final Foot - Left Wound Culture - Final Methicillin resist S. aureus 02/23/21 22:05 Blood Culture - Preliminary Blood No Growth after 48 hours Assessment and Plan Assessment: Left foot cellulitis -Patient is currently being treated for left foot cellulitis with extensive left athlete's foot. Infectious disease team is following. Recommendation for surgical evaluation for possible I&D involving a small abscess located on the lateral aspect of her left second toe. Currently she remains on IV Vanco mycin. Final cultures are currently pending -Patient is on nystatin powder twice daily Essential hypertension -Patient's blood pressure remained stable. Does not require any blood pressure medications at this time Leukocytosis: Patient's leukocytosis has resolved (1) Infection of left foot Current Visit: Yes Status: Acute Code(s): L08.9 - LOCAL INFECTION OF THE SKIN AND SUBCUTANEOUS TISSUE, UNSP SNOMED Code(s): 748789829
--- NOTE | 2021-02-26 14:38 | CONS ---
CONSULTATION This is a 30-year-old female. She has been admitted to [facility] with a history of infection, left foot second toe, with cellulitis on the dorsal aspect of the foot. The patient has a long-standing history of athlete's foot. She has been treating it with some cream and powder. She came with tenderness and pain in the second toe. MEDICAL HISTORY: No history of diabetes, hypertension. No past history of any surgical intervention. PHYSICAL EXAMINATION: NECK: Supple. Trachea central. CHEST: Clear to auscultation. ABDOMEN: Soft. Femoral pulses are present. Dorsal pedis is 1+. On patient's left foot second toe some redness is noted and some drainage noted. The patient also has a chronic athlete's foot involving the big toe and the second toe at the web space. PLAN: I and D of the second toe. MMODL / IJN: [id number] /
--- NOTE | 2021-02-26 14:41 | OP ---
OPERATIVE REPORT PREOPERATIVE DIAGNOSIS: Abscess, left foot second toe. PROCEDURE: Incision and drainage of the left foot, second toe, with deep culture. PROCEDURE DESCRIPTION: Left foot was prepped and draped in usual sterile manner and 1% lidocaine plain was infiltrated. Incision was made on the dorsal aspect of the second toe, deepened through skin, fat and fascia. Some pus came out and some devitalized tissue was excised with a knife. The wound was copiously irrigated with saline. No active bleeding was noted. __aqva harrison silver___ was applied to the wound, dressing applied. Patient tolerated the procedure well. We will change the dressing tomorrow with Aquacel Silver and continue with IV antibiotic. MMODL / IJN: [id number] / [place]
--- NOTE | 2021-02-26 17:31 | PN ---
PROGRESS NOTE DATE OF SERVICE: 02/26/2021 REASON FOR FOLLOWUP: Left second toe abscess and left foot cellulitis. INTERVAL HISTORY: The patient is afebrile. The patient is breathing comfortably. The patient denies having any chest pain, shortness of breath or cough. No abdominal pain. Overall pain and discomfort to the toe slightly decreased. PHYSICAL EXAMINATION: Her blood pressure is 147/85, pulse of 61, temperature 99.8. She is 99% on room air. GENERAL DESCRIPTION: General description is a young female up in the bed in no distress. RESPIRATORY SYSTEM: Unlabored breathing. Clear to auscultation anteriorly. HEART: S1, S2. Regular rate and rhythm. ABDOMEN: Soft. No tenderness. Left second toe swelling and redness, minimal drainage. LABS: Hemoglobin is 12.4, white count 6.5. BUN of 13, creatinine 0.9. DIAGNOSTIC IMPRESSION AND PLAN: Patient with left second toe abscess with secondary cellulitis. Culture with MRSA. Status post surgical drainage. Patient to continue vancomycin. She will possibly benefit from IV antibiotic on discharge in view of extensive infection and close outpatient followup. MMODL / IJN: [id number] /
[2021-02-27] MEDS: HEPARIN SODIUM,PORCINE/PF 5,000 UNIT/0.5 ML SYRINGE SQ SCH ×4 (00:18→23:44)
[2021-02-27] MEDS: VANCOMYCIN 1,500 MG in SODIUM CHLORIDE 0.9% 250 ML IVPB SCH ×3 (00:19→21:10)
[2021-02-27] MEDS: SODIUM CHLORIDE 0.9% 1,000 ML IV SCH ×2 (05:51→15:16)
[2021-02-27] MEDS ORDERED: VANCOMYCIN TROUGH DUE 1 EACH MISC MISCELLANE ONE (07:00)
[2021-02-27 07:09] LABS: African American GFR (CKD) >90 (>60 ml/min/1.73 sqM); Anion Gap 7 mmol/L; Blood Urea Nitrogen 11 mg/dL (7-17); Calcium 9.5 mg/dL (8.4-10.2); Carbon Dioxide 25 mmol/L (22-30); Chloride 107 mmol/L (98-107); Glucose 92 mg/dL (74-99); Non-African American GFR(CKD) >90 (>60 ml/min/1.73 sqM); Potassium 4.3 mmol/L (3.5-5.1); Sodium 139 mmol/L (137-145)
[2021-02-27] MEDS: NYSTATIN 100,000 UNIT/GM POWD 15 GM TOPICAL SCH ×2 (07:54→21:09)
--- NOTE | 2021-02-27 11:02 | PN ---
PROGRESS NOTE The patient had an infection and abscess of the left foot second toe. We did I and D yesterday. Today we have changed the dressing. The base of the wound is clean. We placed Aquacel Silver. This will be changed on Monday. The patient is under the care of Infectious Disease with IV antibiotic, which will be continued. MMODL / IJN: [id number] /
--- NOTE | 2021-02-27 16:23 | P.PN ---
Subjective Progress Note Date: 02/27/21 Principal diagnosis: Cellulitis Patient is a 30-year-old female who presented to the hospital recently with worsening pain and swelling of the left foot. Patient has medical history of recurrent severe athlete's foot. Patient was admitted to the hospital for acute cellulitis. Patient was evaluated by infectious disease team whom recommended surgical evaluation for possible abscess I&D involving the left second toe. Patient is currently on IV antibiotics vancomycin. With infectious disease following for further recommendations. 02/27/2021: Patient seen and examined. She has no new complaints today no nausea vomiting fever or chills she had an I&D performed yesterday by surgical team she remains on IV vancomycin Objective - Vital Signs Vital signs: Vital Signs Temp 98.2 F 02/27/21 13:57 Pulse 74 02/27/21 13:57 Resp 20 02/27/21 13:57 BP 121/69 02/27/21 13:57 Pulse Ox 99 02/27/21 13:57 Intake & Output 02/26/21 02/27/21 02/27/21 18:59 06:59 18:59 Intake Total 1000 1125 Balance 1000 1125 Intake: IV 1025 Sodium Chloride 0.9% 1, 900 000 ml @ 75 mls/hr IV . [id number] [facility] Rx#:[id number] Vancomycin 1,500 mg In 125 Sodium Chloride 0.9% 250 ml @ 125 mls/hr IVPB Q8HR [facility] Rx#:[id number] Oral 1000 100 Other: Voiding Method Toilet Toilet Toilet # Voids 3 2 1 # Bowel Movements 1 1 1 - Exam Constitutional: No acute distress, conversant, pleasant Eyes: Anicteric sclerae, moist conjunctiva, no lid-lag, PERRLA ENMT: NC/AT Neck:Supple, FROM, no masses, or JVD, No carotid bruits; No thyromegaly Lungs: Clear to auscultation, Clear to percussion, Normal respiratory effort, no accessory muscle use Cardiovascular: Heart regular in rate and rhythm, No murmurs, gallops, or rubs no peripheral edema Abdominal: Soft Nontender, nom distended, no guarding, no rebound or rigidity, Normoactive bowel sounds No hepatomegaly, No splenomegaly, No palpable mass No abdominal wall hernia noted Skin: Normal temperature, left foot cellulitis Extremities: Patient has evidence of extensive left athlete's foot with evidence of some swelling. She has some wound/abscess formation involving the second toe Psychiatric: Alert and oriented to person, place and time, Appropriate affect Intact judgement Neuro: Muscles Strength 5/5 in all 4 extremities, Sensation to light touch grossly present throughout, Cranial nerves II-XII grossly intact. - Labs CBC & Chem 7: 02/26/21 05:39 02/27/21 06:09 Labs: Microbiology - Last 24 Hours (Table) 02/26/21 13:48 Gram Stain - Preliminary Toe - Left Second Wound Culture - Preliminary Presumptive MRSA 02/23/21 22:05 Blood Culture - Preliminary Blood No Growth after 72 hours 02/24/21 09:37 Gram Stain - Final Toe - Left Second Wound Culture - Final Methicillin resist S. aureus Assessment and Plan Assessment: Left foot cellulitis -Patient is currently being treated for left foot cellulitis with extensive left athlete's foot. Infectious disease team is following. Patient is postop day #1 from an I&D involving a small abscess located on the lateral aspect of her left second toe. Currently she remains on IV Vanco mycin. Final cultures are currently pending. Awaiting final ID recs -Patient is on nystatin powder twice daily Essential hypertension -Patient's blood pressure remained stable. Does not require any blood pressure medications at this time Leukocytosis: Patient's leukocytosis has resolved Disposition: Patient is medically stable at this time. Awaiting final recommendations from infectious disease team regarding IV antibiotics versus oral antibiotics and discharge plan. (1) Infection of left foot Current Visit: Yes Status: Acute Code(s): L08.9 - LOCAL INFECTION OF THE SKIN AND SUBCUTANEOUS TISSUE, UNSP SNOMED Code(s): 547308878
--- NOTE | 2021-02-28 07:27 | PN ---
PROGRESS NOTE DATE OF SERVICE: 02/27/2021 REASON FOR FOLLOWUP: Left second toe abscess and cellulitis MRSA. INTERVAL HISTORY: Patient is afebrile. The patient is breathing comfortably. Denies having any chest pain, shortness of breath or cough. No abdominal pain. Pain to the left second toe is currently controlled. PHYSICAL EXAMINATION: Blood pressure 153/86, pulse of 64, temperature 98.3. She is 99% on room air. General description is a middle-aged female lying in bed in no distress. Respiratory system: Unlabored breathing, clear to auscultation anteriorly. Heart S1, S2. Regular rate, and rhythm. Abdomen soft. Left foot is currently dressed. No drainage on the dressing. LABS: BUN of 11, creatinine 0.73. DIAGNOSTIC IMPRESSION AND PLAN: Patient with left second toe abscess with cellulitis of the left foot secondary to MRSA, status post drainage of the left foot abscess. Patient to continue with vancomycin. She will benefit from a PICC line and at least 2 weeks of antibiotic in the outpatient setting. Continue supportive care. MMODL / IJN: [id number] /
[2021-02-28 07:43] LABS: African American GFR (CKD) >90 (>60 ml/min/1.73 sqM); Non-African American GFR(CKD) >90 (>60 ml/min/1.73 sqM)
[2021-02-28] MEDS: HEPARIN SODIUM,PORCINE/PF 5,000 UNIT/0.5 ML SYRINGE SQ SCH ×3 (08:29→23:07)
[2021-02-28] MEDS: VANCOMYCIN 1,500 MG in SODIUM CHLORIDE 0.9% 250 ML IVPB SCH ×2 (08:29→21:01)
[2021-02-28] MEDS: NYSTATIN 100,000 UNIT/GM POWD 15 GM TOPICAL SCH ×2 (08:30→14:41)
--- NOTE | 2021-02-28 13:52 | P.PN ---
Subjective Progress Note Date: 02/28/21 Hospital course: Patient is a 30-year-old female who presented to the hospital recently with worsening pain and swelling of the left foot. Patient has medical history of recurrent severe athlete's foot. Patient was admitted to the hospital for acute cellulitis. Patient was evaluated by infectious disease team whom recommended surgical evaluation for possible abscess I&D involving the left se cond toe. Patient is currently on IV antibiotics vancomycin. With infectious disease following for further recommendations. Patient underwent incision and drainage with wound cultures growing MRSA Subjective: 02/28/2021: Feels okay, no chest pain no abdominal pain no nausea no vomiting no dizziness. Remains afebrile. She is status post I&D 02/28/2020 Objective - Vital Signs Vital signs: Vital Signs Temp 98 F 02/28/21 07:26 Pulse 60 02/28/21 08:00 Resp 16 02/28/21 08:00 BP 116/73 02/28/21 07:26 Pulse Ox 99 02/28/21 07:26 Intake & Output 02/27/21 02/28/21 02/28/21 18:59 06:59 18:59 Intake Total 1125 500 243 Balance 1125 500 243 Intake: IV 1025 125 Sodium Chloride 0.9% 1, 900 000 ml @ 75 mls/hr IV . [id number] GEORGE Rx#:[id number] Vancomycin 1,500 mg In 125 Sodium Chloride 0.9% 250 ml @ 125 mls/hr IVPB Q12HR GEORGE Rx#:[id number] Vancomycin 1,500 mg In 125 Sodium Chloride 0.9% 250 ml @ 125 mls/hr IVPB Q8HR GEORGE Rx#:[id number] Oral 100 500 118 Other: Voiding Method Toilet Toilet Toilet # Voids 1 2 1 # Bowel Movements 1 1 - Exam Constitutional: No acute distress, conversant, pleasant Eyes: Anicteric sclerae, moist conjunctiva, no lid-lag, PERRLA ENMT: NC/AT Neck:Supple, FROM, no masses, or JVD, No carotid bruits; No thyromegaly Lungs: Clear to auscultation, Clear to percussion, Normal respiratory effort, no accessory muscle use Cardiovascular: Heart regular in rate and rhythm, No murmurs, gallops, or rubs no peripheral edema Abdominal: Soft Nontender, nom distended, no guarding, no rebound or rigidity, Normoactive bowel sounds No hepatomegaly, No splenomegaly, No palpable mass No abdominal wall hernia noted Skin: Normal temperature, left foot cellulitis status post I&D Extremities:No digital cyanosis No clubbing, Psychiatric: Alert and oriented to person, place and time, Appropriate affect Intact judgement Neuro: Muscles Strength 5/5 in all 4 extremities, Sensation to light touch grossly present throughout, Cranial nerves II-XII grossly intact. - Labs CBC & Chem 7: 02/26/21 05:39 02/28/21 06:25 Labs: Microbiology - Last 24 Hours (Table) 02/26/21 13:48 Gram Stain - Final Toe - Left Second Wound Culture - Final Methicillin resist S. aureus 02/23/21 22:05 Blood Culture - Preliminary Blood No Growth after 96 hours Assessment and Plan Plan: 1. left foot cellulitis ,failed outpatient therapy with wound cultures positive for MRSA : Continue IV antibiotics with vancomycin infectious disease consultation input appreciated. Left foot CT consistent with cellulitis without osteomyelitis, surgery following 2. Leukocytosis secondary to infection: WBC normalized 3. Essential hypertension: On medications 4. Obesity: BMI 32.1 Disposition: Pending clinical progression home once clinically better.
[2021-02-28] MEDS: SODIUM CHLORIDE 0.9% 1,000 ML IV SCH ×2 (14:11→22:38)
--- NOTE | 2021-02-28 17:18 | PN ---
PROGRESS NOTE DATE OF SERVICE: 02/28/2021 REASON FOR FOLLOWUP: Left second toe MRSA abscess and cellulitis. INTERVAL HISTORY: The patient is afebrile. The patient is currently breathing comfortably. Overall pain and discomfort to the left foot is slightly decreased. No chest pain, shortness of breath, cough, no abdominal pain or diarrhea. PHYSICAL EXAMINATION: Blood pressure 117/71, pulse of 69, temperature 98. She is 99% on room air. General description is a middle-aged female up in the bed in no distress. Respiratory system: Unlabored breathing, clear to auscultation anteriorly. Heart S1, S2. Regular rate and rhythm. Abdomen soft, no tenderness. Left second toe swelling and redness has slightly decreased. LABS: Creatinine 0.81. DIAGNOSTIC IMPRESSION AND PLAN: Patient with MRSA left second toe abscess status post drainage of the abscess. We are waiting for outpatient IV antibiotic coverage, if she did have, we will get a PICC line for outpatient antibiotic. Vancomycin for 2 weeks. If not, transition to oral Bactrim and close outpatient followup. MMODL / IJN: [id number] /
[2021-03-01 06:17] LABS: Basophils # (A) 0.1 k/uL (0-0.2); Basophils % (A) 1 %; Eosinophils # (A) 0.2 k/uL (0-0.7); Eosinophils % (A) 3 %; HCT 41.2 % (34.0-46.0); HGB 14.1 gm/dL (11.4-16.0); Lymphocytes # (A) 2.4 k/uL (1.0-4.8); Lymphocytes % (A) 26 %; MCH 30.1 pg (25.0-35.0); MCHC 34.1 g/dL (31.0-37.0); MCV 88.2 fL (80.0-100.0); Mean Platelet Volume 7.3; Monocytes # (A) 0.6 k/uL (0-1.0); Monocytes % (A) 7 %; Neutrophils # (A) 5.6 k/uL (1.3-7.7); Neutrophils % (A) 62 %; Platelet Count 334 k/uL (150-450); RBC 4.67 m/uL (3.80-5.40); RDW 12.3 % (11.5-15.5)
[2021-03-01 06:26] LABS: ALT 189 U/L (4-34); AST 192 U/L (14-36); African American GFR (CKD) >90 (>60 ml/min/1.73 sqM); Albumin 3.7 g/dL (3.5-5.0); Alkaline Phosphatase 58 U/L (38-126); Anion Gap 7 mmol/L; Blood Urea Nitrogen 11 mg/dL (7-17); Calcium 9.5 mg/dL (8.4-10.2); Carbon Dioxide 24 mmol/L (22-30); Chloride 105 mmol/L (98-107); Glucose 95 mg/dL (74-99); Non-African American GFR(CKD) >90 (>60 ml/min/1.73 sqM); Potassium 4.1 mmol/L (3.5-5.1); Sodium 136 mmol/L (137-145); Total Bilirubin 0.4 mg/dL (0.2-1.3); Total Protein 6.8 g/dL (6.3-8.2)
[2021-03-01] MEDS: HEPARIN SODIUM,PORCINE/PF 5,000 UNIT/0.5 ML SYRINGE SQ SCH ×2 (08:56→16:00)
[2021-03-01] MEDS: NYSTATIN 100,000 UNIT/GM POWD 15 GM TOPICAL SCH (09:00)
[2021-03-01] MEDS: VANCOMYCIN 1,500 MG in SODIUM CHLORIDE 0.9% 250 ML IVPB SCH (12:55)
[2021-03-01 14:21] VITALS: BP 124/74; PULSE 76; RESP 15; TEMP 97.9
--- NOTE | 2021-03-01 16:43 | PN ---
PROGRESS NOTE DATE OF SERVICE: 03/01/2021 REASON FOR FOLLOWUP: Left second toe abscess and cellulitis, MRSA. INTERVAL HISTORY: The patient was seen on rounds this morning. The patient has been afebrile, breathing comfortably. Patient denies having any chest pain or shortness of breath or cough. No abdominal pain or diarrhea. PHYSICAL EXAMINATION: Blood pressure 124/64 with pulse of , temperature 97.9. She is 99% on room air. GENERAL DESCRIPTION: General description is a middle-aged female up in the bed in no distress. RESPIRATORY SYSTEM: Unlabored breathing. Clear to auscultation anteriorly. HEART: S1, S2. Regular rate and rhythm. ABDOMEN: Soft. No tenderness. Left is currently dressed. No drainage on the dressing. LABS: Hemoglobin is 14.1m white count 9.0, creatinine 0.76. Blood culture is negative. Wound cultures with MRSA. DIAGNOSTIC IMPRESSION AND PLAN: Patient with MRSA left second toe abscess and cellulitis. Patient unable to afford outpatient IV vancomycin therapy. Plan is for Bactrim DS one twice a day for 2 weeks. Prescription sent to pharmacy. Local wound care with an Aquacel Silver dressing and to follow up with me in the wound care center next week. MMODL / IJN: [id number] /
--- NOTE | 2021-03-01 19:27 | P.DS ---
Providers Date of admission: 02/26/21 09:13 Expected date of discharge: 03/01/21 Attending physician: John Escobar MD Consults: 02/23/21 22:18 Consult Physician Routine Consulting Provider: Lianne Ortega Consult Reason/Comments: Left foot infection Do you want consulting provider notified?: Yes 02/25/21 13:34 Consult Physician Routine Consulting Provider: Eric Capps Consult Reason/Comments: left 2nd toe abscess , debridemnt and deep cultures Do you want consulting provider notified?: Yes Primary care physician: Tod Willett Hospital Course: Discharge Diagnosis: Left second toe abscess with cellulitis Transaminitis Hospital Course: Patient is a 30-year-old female with no known past medical history who presented with left foot pain and swelling. She was subsequently diagnosed with cellulitis, she failed one day of Keflex prior to admission. She was started on Vanco and Zosyn as well as IV fluids. She was admitted for further management. She was seen by infectious disease and was found have an extensive athlete's foot infection as well as small abscess. CT of the foot was obtained which showed subcutaneous edema consistent with cellulitis or lymphedema with no evidence of osteomyelitis. She was seen by Dr. Capps and had an I&D with deep culture performed at bedside. Culture came back with MRSA. It was susceptible to oral Bactrim. She continued to have improvement and subsequently determined stable for discharge home. She will complete an additional 2 weeks of oral Bactrim therapy. She'll follow with Dr. Capps in 5 days. She was noted to have some transaminitis which was felt to be secondary to antibiotics. Follow-up: Dr. Willett in 2-3 days, Dr. Capps on 03/05. Suggest repeat LFTs on follow-up. Patient seen and examined at bedside. Denies any chest pain, shortness breath, nausea or vomiting. Not having much pain in the foot. Feels as though she is ready to discharge home and return to work. Vital signs reviewed and stable. General: [non toxic], [no distress], [appears at stated age] Derm: Dressing in place over left foot [warm], [dry] Head: [atraumatic], [normocephalic], [symmetric] Eyes: [EOMI], [no lid lag], [anicteric sclera] Mouth: [no lip lesion], [mucus membranes moist] Cardiovascular: [S1S2 reg], [no murmur], [positive posterior tibial pulse bilateral], Lungs: [CTA bilateral], [no rhonchi, no rales] , [no accessory muscle use] Abdominal: [soft], [ nontender to palpation], [no guarding], [no appreciable organomegaly] Ext: [no gross muscle atrophy], [no edema], [no contractures] Neuro: [ CN II-XI grossly intact], [no focal neuro deficits] Psych: [Alert], [oriented], [appropriate affect] A total of 35 minutes of time were spent preparing this complex discharge summary . Patient Condition at Discharge: Stable Plan - Discharge Summary Discharge Rx Participant: No New Discharge Prescriptions: New Sulfamethox-Tmp 800-160Mg [Bactrim DS 800-160 mg] 1 tab PO Q12HR #28 tab Discontinued Cephalexin [Keflex] 500 mg PO Q6HR 10 Days #40 cap Discharge Medication List Sulfamethox-Tmp 800-160Mg [Bactrim DS 800-160 mg] 1 tab PO Q12HR #28 tab 03/01/21 [Rx] Follow up Appointment(s)/Referral(s): Tod Willett MD [Primary Care Provider] - 1-2 days Eric Capps MD [STAFF PHYSICIAN] - (follow up with Dr. Capps on Monday03-05-2021) Activity/Diet/Wound Care/Special Instructions: Aquacel silver dressing to the left second toe wound changed every 48 hours, follow-up with Dr. Ortega in the wound center next week, call [phone] to make an appointment Per Dr. Capps off work until follow up with Dr. Ortega next week in wound Center. Discharge Disposition: HOME SELF-CARE
--- NOTE | 2021-03-01 22:21 | PN ---
PROGRESS NOTE Elba is a 30-year-old female. She came with an infection to the left foot second toe with some abscess formation. I did an I and D under local sedation and culture came back as MRSA. The patient is on antibiotic under the care of Infectious Disease. Today we changed the dressing. Incision site is clean and the wound is granulating. We changed the dressing with Aquacel Silver. The patient is going home today. I will follow her in the office on Monday. All instructions were given to the patient about local wound care. MMODL / IJN: [id number] /
[2021-03-02] MEDS ORDERED: VANCOMYCIN TROUGH DUE 1 EACH MISC MISCELLANE ONE (08:00)
== END 2021-03-01 19:50 | disposition home or self-care (01) | DRG 603 ==
LOC: EC 19:25 → 1SOBS 22:17 → 6NMEDSUR 02-24 02:54 → OBSVTOIN 02-26 09:13 → 6PED 02-28 17:35
PROVIDERS: ADMIT Internal Medicine; ATTEND Internal Medicine
DX: L03.116 Cellulitis of left lower limb (principal); L02.612 Cutaneous abscess of left foot; B35.3 Tinea pedis; B95.62 Methicillin resistant Staphylococcus aureus infection as the cause of diseases classified elsewhere; I10 Essential (primary) hypertension; L03.032 Cellulitis of left toe; R74.01 Elevation of levels of liver transaminase levels; R60.9 Edema, unspecified
CPT/HCPCS: 36415; 80048; 80053; 80202; 82565; 83605; 85025; 85610; 85652; 86140; 87040; 87070; 87077; 87186; 87205; 96374; 99284

== ENCOUNTER 2021-09-16 11:24 | Observation (INO) | payer BC ==
[2021-09-16] MEDS ORDERED: SODIUM CHLORIDE 0.9% 500 ML 500 ML IV STA (11:51)
[2021-09-16] MEDS ORDERED: SODIUM CHLORIDE 0.9% 1,000 ML IV STA (11:51)
--- NOTE | 2021-09-16 12:14 | ED ---
General Adult HPI - General Source: patient Mode of arrival: wheelchair Limitations: no limitations <Fabricio Allen - Last Filed: 09/16/21 12:04> - General Source: patient, RN notes reviewed Mode of arrival: ambulatory Limitations: no limitations <Wang Irving - Last Filed: 09/16/21 15:21> - General Chief complaint: Abdominal Pain Stated complaint: vomiting/weak Time Seen by Provider: 09/16/21 11:50 - History of Present Illness Initial comments: This a 31-year-old female presents emergency from chief complaint of epigastric, right quadrant abdominal pain nausea vomiting diarrhea. Patient had a sudden onset of symptoms she states pain is rated slightly to her back. Patient denies any chills but she states mid suspected fevers. Patient states she's had recurrent vomiting and diarrhea. She's had no prior abdominal surgeries denies any chance . (Wang Irving) - Related Data Home Medications Medication Instructions Recorded Confirmed No Known Home Medications 09/16/21 09/16/21 Allergies Allergy/AdvReac Type Severity Reaction Status Date / Time No Known Allergies Allergy Verified 09/16/21 12:29 Review of Systems ROS Other: All systems not noted in ROS Statement are negative. <Fabricio Allen - Last Filed: 09/16/21 12:04> ROS Other: All systems not noted in ROS Statement are negative. <Wang Irving - Last Filed: 09/16/21 15:21> ROS Statement: Those systems with pertinent positive or pertinent negative responses have been documented in the HPI. Past Medical History Past Medical History: No Reported History History of Any Multi-Drug Resistant Organisms: MRSA Date of last positivie culture/infection: 02/26/21 MDRO Source:: Left 2nd Toe Past Surgical History: No Surgical Hx Reported Past Anesthesia/Blood Transfusion Reactions: No Reported Reaction Past Psychological History: No Psychological Hx Reported Smoking Status: Never smoker Past Alcohol Use History: None Reported Past Drug Use History: None Reported - Past Family History family \ Family Medical History: No Reported History <Fabricio Allen - Last Filed: 09/16/21 12:04> General Exam Limitations: no limitations <Fabricio Allen - Last Filed: 09/16/21 12:04> General appearance: alert, in no apparent distress Head exam: Present: atraumatic, normocephalic, normal inspection Eye exam: Present: normal appearance, PERRL, EOMI. Absent: scleral icterus, conjunctival injection, periorbital swelling Neck exam: Present: normal inspection. Absent: tenderness, meningismus, lymphadenopathy Respiratory exam: Present: normal lung sounds bilaterally. Absent: respiratory distress, wheezes, rales, rhonchi, stridor Cardiovascular Exam: Present: regular rate, normal rhythm, normal heart sounds. Absent: systolic murmur, diastolic murmur, rubs, gallop, clicks GI/Abdominal exam: Present: soft, tenderness (Epigastric and right upper quadrant), normal bowel sounds. Absent: distended, guarding, rebound, rigid Back exam: Absent: CVA tenderness (R), CVA tenderness (L) <Wang Irving - Last Filed: 09/16/21 15:21> Course Vital Signs 09/16/21 09/16/21 11:32 12:35 Temperature 98 F Pulse Rate 98 93 Respiratory 16 18 Rate Blood Pressure 118/92 O2 Sat by Pulse 96 98 Oximetry Medical Decision Making - Lab Data Result diagrams: 09/16/21 12:09 09/16/21 12:09 <Wang Irving - Last Filed: 09/16/21 15:21> - Medical Decision Making 31-year-old presented for abdominal pain, nausea vomiting diarrhea. Patient has evidence of acute pancreatitis with a lipase of 755 ultrasound shows evidence of gallbladder polyp and calcification of pain. He can. I did discuss the case with on-call physician Dr. Borjas who accepts admission for IV fluid hydration, acute pancreatitis with surgery consult. (Wang Irving) - Lab Data Lab Results 09/16/21 09/16/21 09/16/21 Range/Units 11:51 11:51 12:09 WBC 19.4 H (3.8-10.6) k/uL RBC 5.91 H (3.80-5.40) m/uL Hgb 17.7 H (11.4-16.0) gm/dL Hct 52.0 H (34.0-46.0) % MCV 87.9 (80.0-100.0) fL MCH 29.9 (25.0-35.0) pg MCHC 34.0 (31.0-37.0) g/dL RDW 12.9 (11.5-15.5) % Plt Count 447 (150-450) k/uL MPV 7.7 Neutrophils % 91 % Lymphocytes % 5 % Monocytes % 3 % Eosinophils % 0 % Basophils % 0 % Neutrophils # 17.7 H (1.3-7.7) k/uL Lymphocytes # 1.0 (1.0-4.8) k/uL Monocytes # 0.5 (0-1.0) k/uL Eosinophils # 0.1 (0-0.7) k/uL Basophils # 0.1 (0-0.2) k/uL Sodium (137-145) mmol/L Potassium (3.5-5.1) mmol/L Chloride (98-107) mmol/L Carbon Dioxide (22-30) mmol/L Anion Gap mmol/L BUN (7-17) mg/dL Creatinine (0.52-1.04) mg/dL Est GFR (CKD-EPI)AfAm (>60 ml/min/1.73 sqM) Est GFR (CKD-EPI)NonAf (>60 ml/min/1.73 sqM) Glucose (74-99) mg/dL Plasma Lactic Acid Corby (0.7-2.0) mmol/L Calcium (8.4-10.2) mg/dL Total Bilirubin (0.2-1.3) mg/dL AST (14-36) U/L ALT (4-34) U/L Alkaline Phosphatase (38-126) U/L Total Protein (6.3-8.2) g/dL Albumin (3.5-5.0) g/dL Lipase (23-300) U/L Urine Color Yellow Urine Appearance Clear (Clear) Urine pH 5.5 (5.0-8.0) Ur Specific Benton 1.028 (1.001-1.035) Urine Protein Trace H (Negative) Urine Glucose (UA) Negative (Negative) Urine Ketones Negative (Negative) Urine Blood Negative (Negative) Urine Nitrite Negative (Negative) Urine Bilirubin Negative (Negative) Urine Urobilinogen <2.0 (<2.0) mg/dL Ur Leukocyte Esterase Negative (Negative) Urine HCG, Qual Not Detected (Not Detectd) 09/16/21 09/16/21 Range/Units 12:09 12:09 WBC (3.8-10.6) k/uL RBC (3.80-5.40) m/uL Hgb (11.4-16.0) gm/dL Hct (34.0-46.0) % MCV (80.0-100.0) fL MCH (25.0-35.0) pg MCHC (31.0-37.0) g/dL RDW (11.5-15.5) % Plt Count (150-450) k/uL MPV Neutrophils % % Lymphocytes % % Monocytes % % Eosinophils % % Basophils % % Neutrophils # (1.3-7.7) k/uL Lymphocytes # (1.0-4.8) k/uL Monocytes # (0-1.0) k/uL Eosinophils # (0-0.7) k/uL Basophils # (0-0.2) k/uL Sodium 139 (137-145) mmol/L Potassium 4.5 (3.5-5.1) mmol/L Chloride 107 (98-107) mmol/L Carbon Dioxide 19 L (22-30) mmol/L Anion Gap 13 mmol/L BUN 16 (7-17) mg/dL Creatinine 0.97 (0.52-1.04) mg/dL Est GFR (CKD-EPI)AfAm 89 (>60 ml/min/1.73 sqM) Est GFR (CKD-EPI)NonAf 77 (>60 ml/min/1.73 sqM) Glucose 122 H (74-99) mg/dL Plasma Lactic Acid Corby 1.5 (0.7-2.0) mmol/L Calcium 10.5 H (8.4-10.2) mg/dL Total Bilirubin 0.7 (0.2-1.3) mg/dL AST 38 H (14-36) U/L ALT 32 (4-34) U/L Alkaline Phosphatase 92 (38-126) U/L Total Protein 9.8 H (6.3-8.2) g/dL Albumin 5.5 H (3.5-5.0) g/dL Lipase 755 H (23-300) U/L Urine Color Urine Appearance (Clear) Urine pH (5.0-8.0) Ur Specific Benton (1.001-1.035) Urine Protein (Negative) Urine Glucose (UA) (Negative) Urine Ketones (Negative) Urine Blood (Negative) Urine Nitrite (Negative) Urine Bilirubin (Negative) Urine Urobilinogen (<2.0) mg/dL Ur Leukocyte Esterase (Negative) Urine HCG, Qual (Not Detectd) Disposition <Fabricio Allen - Last Filed: 09/16/21 12:04> <Wang Irving - Last Filed: 09/16/21 15:21> Clinical Impression: Acute pancreatitis, Gallbladder polyp, Nausea & vomiting Disposition: ADMITTED IP TO THIS [facility] Condition: Fair Referrals: Tod Willett MD [Primary Care Provider] - 1-2 days
[2021-09-16 12:20] LABS: Basophils # (A) 0.1 k/uL (0-0.2); Basophils % (A) 0 %; Eosinophils # (A) 0.1 k/uL (0-0.7); Eosinophils % (A) 0 %; HGB 17.7 gm/dL (11.4-16.0); Lymphocytes % (A) 5 %; MCH 29.9 pg (25.0-35.0); MCV 87.9 fL (80.0-100.0); Mean Platelet Volume 7.7; Monocytes # (A) 0.5 k/uL (0-1.0); Monocytes % (A) 3 %; Neutrophils # (A) 17.7 k/uL (1.3-7.7); Neutrophils % (A) 91 %; Platelet Count 447 k/uL (150-450); RBC 5.91 m/uL (3.80-5.40); RDW 12.9 % (11.5-15.5); WBC 19.4 k/uL (3.8-10.6)
[2021-09-16] MEDS ORDERED: diphenhydrAMINE 50 MG/ML 1 ML VIAL IVP STA (12:30)
[2021-09-16] MEDS ORDERED: ONDANSETRON 4 MG/2 ML VIAL IVP STA (12:30)
[2021-09-16] MEDS ORDERED: FAMOTIDINE 20 MG/2 ML VIAL IV STA (12:30)
[2021-09-16 12:31] LABS: Albumin 5.5 g/dL (3.5-5.0); Calcium 10.5 mg/dL (8.4-10.2); Potassium 4.5 mmol/L (3.5-5.1); Total Bilirubin 0.7 mg/dL (0.2-1.3); Total Protein 9.8 g/dL (6.3-8.2)
--- NOTE | 2021-09-16 14:51 | US ---
EXAMINATION TYPE: US gallbladder DATE OF EXAM: 09/16/2021 COMPARISON: NONE CLINICAL HISTORY: 31-year-old female Pain TECHNIQUE: Multiple sonographic images of the right upper quadrant are obtained. FINDINGS: EXAM MEASUREMENTS: Liver Length: 15.5 cm Gallbladder Wall: 0.19 cm CBD: 0.43 cm Right Kidney: 9.9 x 5.6 x 3.5 cm [employer] notes: Limited due to gas. Pancreas: Echogenic focus measuring 0.4 x 0.3 x 0.3 cm at the pancreatic head suggesting a nonspecif ic calcification. Otherwise, pancreas appears within normal limits. Liver: Slightly hypoechoic appearance with echogenic periportal fat. This may be in a technical basis . No focal lesion. Gallbladder: Mural based nodular soft tissue area along the posterior gallbladder wall measures 0.6 x 0.2 x 0.3 cm. No shadowing calculus, hydropic change, wall thickening, or surrounding fluid. Evidence for sonographic Todd's sign: No. CBD: Appears wnl. Right Kidney: No hydronephrosis. IMPRESSION: 1. Slightly hypoechoic appearance to the liver. This may be on a technical basis. Correlate with LFTs to exclude hepatitis. 2. No shadowing gallstones or biliary ductal dilatation. There is a 6 mm nodule along the posterior w all that could represent a gallbladder wall polyp. Six-month follow-up ultrasound to reassess.
[2021-09-16 14:57] LABS: Appearance,Urine Clear (Clear); Bilirubin,Urine Negative (Negative); Blood,Urine Negative (Negative); Color,Urine Yellow; Glucose,Urine (UA) Negative (Negative); Ketones,Urine Negative (Negative); Leukocyte Esterase,Urine Negative (Negative); Nitrite,Urine Negative (Negative); PH, Urine 5.5 (5.0-8.0); Protein,Urine Trace (Negative); Specific Gravity,Urine 1.028 (1.001-1.035); Urobilinogen,Urine <2.0 mg/dL (<2.0)
[2021-09-16] MEDS ORDERED: ONDANSETRON 4 MG/2 ML VIAL IVP PRN ×2 (16:35→17:38)
[2021-09-16] MEDS ORDERED: NALOXONE 0.4 MG/ML 1 ML VIAL IV PRN (16:35)
--- NOTE | 2021-09-16 17:39 | P.HPIM ---
History of Present Illness H&P Date: 09/16/21 Chief Complaint: Abdominal pain 31-year-old woman with obesity class II presented with abdominal pain. Patient says that her pain started this morning and feels sharp in nature. She doesn't notice any positional changes. There is no radiation. She is also noticed that she had episodes of emesis and diarrhea associated with this. Emesis was nonbloody, neither was her diarrhea. She describes the diarrhea as. Watery stool with some foul smell and small stool floating on top of water. She has family history of her father and uncle passing from pancreatic cancer. She is concerned about her abdominal pain which brought her into the hospital. She denies fevers, chills, chest pain, palpitations, syncopal, presyncope, cough, dyspnea, dysuria, dyschezia, numbness/weakness of extremities. In the emergency room, patient was afebrile, 118/92, heart rate 93, 98% on room air. CBC was remarkable for a white count of 19.4, hemoglobin of 17.7. Chemistries show non-anion gap metabolic acidosis with bicarb of 19. Liver function tests were notable for total protein of 9.8, albumin of 5.5, AST of 38. Lipase was elevated at 755. Urinalysis was significant for trace protein. Gallbladder ultrasound was obtained, demonstrating echogenic focus measuring 0.4 cm pancreatic head suggesting nonspecific calcification, gallbladder itself had a mural based nodular soft tissue area measuring 0.6 cm, likely representing gallbladder wall polyp. All Systems reviewed and pertinent positives and negatives noted in HPI, all other symptoms are negative Gen: awake, alert HEENT: normocephalic, atraumatic, good hearing acuity, moist mucous membranes Resp: good air exchange, breathing comfortably with no accessory muscle use CVS: good distal perfusion x 4, GI: soft, tender to palpation in the epigastrium : no SPT, no CVAT, rivera catheter not present MSK: no pitting edema, no clubbing Neuro: non-focal, moving all extremities Psych: cooperative, euthymic mood Labs and imaging reviewed as above Assessment/plan: Acute pancreatitis Gallbladder polyp Pancreatic calcification -Admit inpatient -IV fluids -Pain control -Nothing by mouth -Nausea control -MRI of the abdomen -We'll require follow-up gallbladder ultrasound in 6 months Obesity class II, BMI 35.2 -Outpatient weight loss referral Patient is full code DVT prophylaxis with enoxaparin Past Medical History Past Medical History: No Reported History History of Any Multi-Drug Resistant Organisms: MRSA Date of last positivie culture/infection: 02/26/21 MDRO Source:: Left 2nd Toe Past Surgical History: No Surgical Hx Reported Past Anesthesia/Blood Transfusion Reactions: No Reported Reaction Past Psychological History: No Psychological Hx Reported Smoking Status: Never smoker Past Alcohol Use History: None Reported Past Drug Use History: None Reported - Past Family History family \ Family Medical History: No Reported History Medications and Allergies Home Medications Medication Instructions Recorded Confirmed Type No Known Home Medications 09/16/21 09/16/21 History Allergies Allergy/AdvReac Type Severity Reaction Status Date / Time No Known Allergies Allergy Verified 09/16/21 12:29 Physical Exam Osteopathic Statement: *. No significant issues noted on an osteopathic s tructural exam other than those noted in the History and Physical/Consult. Vitals: Vital Signs Temp Pulse Resp BP Pulse Ox 09/16/21 16:00 92 18 109/78 96 09/16/21 12:35 93 18 118/92 98 09/16/21 11:32 98 F 98 16 96 Intake and Output 09/16/21 09/16/21 09/16/21 06:59 14:59 22:59 Other: Weight 81.647 kg Results CBC & Chem 7: 09/16/21 12:09 09/16/21 12:09 Labs: Abnormal Lab Results - Last 24 Hours (Table) 09/16/21 09/16/21 09/16/21 Range/Units 11:51 12:09 12:09 WBC 19.4 H (3.8-10.6) k/uL RBC 5.91 H (3.80-5.40) m/uL Hgb 17.7 H (11.4-16.0) gm/dL Hct 52.0 H (34.0-46.0) % Neutrophils # 17.7 H (1.3-7.7) k/uL Carbon Dioxide 19 L (22-30) mmol/L Glucose 122 H (74-99) mg/dL Calcium 10.5 H (8.4-10.2) mg/dL AST 38 H (14-36) U/L Total Protein 9.8 H (6.3-8.2) g/dL Albumin 5.5 H (3.5-5.0) g/dL Lipase 755 H (23-300) U/L Urine Protein Trace H (Negative)
[2021-09-16] MEDS: SODIUM CHLORIDE 0.9% 1,000 ML IV SCH (19:31)
[2021-09-16] MEDS ORDERED: diphenhydrAMINE 25 MG CAP PO STA (21:00)
[2021-09-17] MEDS: SODIUM CHLORIDE 0.9% 1,000 ML IV SCH (04:26)
[2021-09-17 08:01] VITALS: RESP 20
[2021-09-17] MEDS ORDERED: ENOXAPARIN 40 MG/0.4 ML SYRINGE SQ SCH (09:00)
[2021-09-17 10:51] LABS: Basophils # (A) 0.06 X 10*3/uL (0.00-0.10); Basophils % (A) 0.6 %; Eosinophils # (A) 0.09 X 10*3/uL (0.04-0.35); Eosinophils % (A) 0.9 %; HCT 44.5 % (37.2-46.3); HGB 14.3 g/dL (12.0-15.0); Immature Grans, Automated 0.2 %; Lymphocytes # (A) 2.17 X 10*3/uL (0.90-5.00); Lymphocytes % (A) 22.3 %; MCH 28.7 pg (27.0-32.0); MCHC 32.1 g/dL (32.0-37.0); MCV 89.4 fL (80.0-97.0); Mean Platelet Volume 10.7 fL (9.5-12.2); Monocytes # (A) 0.94 X 10*3/uL (0.20-1.00); Monocytes % (A) 9.7 %; NRBC Per 100 WBC 0 /100 WBCS (0.0-0.0); Neutrophils # (A) 6.43 X 10*3/uL (1.80-7.70); Neutrophils % (A) 66.3 %; Platelet Count 321 X 10*3/uL (140-440); RBC 4.98 X 10*6/uL (4.10-5.20); RDW 12.9 % (11.5-14.5); WBC 9.71 X 10*3/uL (4.50-10.00)
[2021-09-17 13:15] VITALS: BP 102/65; PULSE 57; TEMP 98
--- NOTE | 2021-09-17 13:34 | MR ---
MR abdomen with and without contrast HISTORY: Abnormal ultrasound, pancreas calcification Multiplanar multisequence and postcontrast images obtained through the abdomen following 9 cc Gadavis t IV. Correlation ultrasound gallbladder 09/16/2021 MRI is of limited utility for calcification evaluation. No signal drop on out of phase imaging within the liver to suggest hepatic steatosis, liver is enlarged. No evident liver mass. Lung bases show no effusion. There is a single level within the gallbladder suggesting tumefactive sludge, no gallbladd er wall thickening. Focus seen on ultrasound within the dependent portion of the gallbladder is not s een on MRI. T1 hypointense, T2 bright focus present within the pancreas measures only approximately 5 mm within t he body, questionable clinical significance The adrenal glands, spleen are within normal limits. Aorta shows normal caliber. Kidneys show no hydr onephrosis or evident mass. Excretion is present bilaterally. Inferior vena cava normal. No evident b owel obstruction. Incidental note of probable fibroids within the uterus. There is no ascites. Thickening of the stomac h wall may be due to lack of distention. IMPRESSION: There is hepatomegaly. Indeterminate cystic focus within the pancreas, follow-up could be performed to assess for stability. There may be tumefactive sludge within the gallbladder, additiona l findings above.
--- NOTE | 2021-09-17 15:03 | P.CONS ---
History of Present Illness - Reason for Consult Consult date: 09/17/21 nausea and vomiting Requesting physician: Katherine Hercules - Chief Complaint Abdominal pain - History of Present Illness This a 31-year-old female who presented to the emergency department yesterday with complaints of epigastric and right upper quadrant pain with nausea vomiting and diarrhea. States symptoms were sudden and radiated to her back. She had 5 episodes of emesis, nonbloody, multiple episodes of diarrhea that is now watery. Denies any bloody or black stool. No hematemesis. Patient did have an elevated lipase 755 on admission. LFTs were unremarkable. She denies any fevers or chills. She had an ultrasound of the abdomen that showed a slightly hypoechoic appearance of the liver no shadowing gallstones or biliary ductal dilation. 6 mm nodule along the posterior wall that could represent a gallbladder wall polyp. Abdominal pain has improved, she did have one episode of emesis this morning. Diarrhea has improved some as well. She denies any pre vious history of pancreatitis. No previous history of alcohol abuse, no new medications reported. Review of Systems REVIEW OF SYSTEMS: CARDIOPULMONARY: No chest pain or shortness of breath. Gastrointestinal: Epigastric abdominal pain. Nausea with vomiting. Diarrhea. No hematemesis, coffee-ground emesis. No rectal bleeding, or melena. GENITOURINARY: No dysuria or hematuria. MUSCULOSKELETAL: Reports normal range of motion.. SKIN: No rashes. No jaundice. ENDOCRINE: No chills, fevers. No excessive weight gain or loss. No polydipsia or polyuria. PSYCHIATRIC: Unremarkable. NEUROLOGY: No change in mental status. Denies dizziness, headache. ENT: Vision unremarkable. CONSTITUTIONAL: No recent weight loss. No fever, chills, night sweats. Past Medical History Past Medical History: No Reported History History of Any Multi-Drug Resistant Organisms: MRSA Year Discovered:: 02/26/21 MDRO Source:: Left 2nd Toe Past Surgical History: No Surgical Hx Reported Past Anesthesia/Blood Transfusion Reactions: No Reported Reaction Past Psychological History: No Psychological Hx Reported Smoking Status: Never smoker Past Alcohol Use History: None Reported Past Drug Use History: None Reported - Past Family History family \ Family Medical History: No Reported History Medications and Allergies Home Medications Medication Instructions Recorded Confirmed Type No Known Home Medications 09/16/21 09/16/21 History Allergies Allergy/AdvReac Type Severity Reaction Status Date / Time No Known Allergies Allergy Verified 09/16/21 12:29 Physical Exam Vitals: Vital Signs Temp Pulse Pulse Resp BP BP Pulse Ox 09/17/21 07:00 98.1 F 69 20 138/74 100 09/17/21 03:03 98.0 F 59 L 15 122/73 100 09/16/21 20:32 98.0 F 69 14 126/71 98 09/16/21 18:32 94 16 108/72 97 09/16/21 16:00 92 18 109/78 96 09/16/21 12:35 93 18 118/92 98 09/16/21 11:32 98 F 98 16 96 Intake and Output 09/16/21 09/17/21 09/17/21 22:59 06:59 14:59 Other: # Voids 2 2 Weight 81.647 kg General appearance: The patient is alert, oriented, appears in no acute distress. HET: Head is normocephalic and atraumatic. Conjunctiva pink. Sclera anicteric. Neck: Supple without lymphadenopathy. Abdomen: Soft, right upper quadrant and epigastric tenderness, nondistended with bowel sounds. No guarding or rigidity. Extremities: Normal skin color and turgor. No pedal edema Skin: No rashes, no jaundice Neurological: No focal deficits. Alert and oriented 3. Results CBC & Chem 7: 09/17/21 07:34 09/16/21 12:09 Labs: Abnormal Lab Results - Last 24 Hours (Table) 09/16/21 09/16/21 09/16/21 Range/Units 11:51 12:09 12:09 WBC 19.4 H (3.8-10.6) k/uL RBC 5.91 H (3.80-5.40) m/uL Hgb 17.7 H (11.4-16.0) gm/dL Hct 52.0 H (34.0-46.0) % Neutrophils # 17.7 H (1.3-7.7) k/uL Carbon Dioxide 19 L (22-30) mmol/L Glucose 122 H (74-99) mg/dL Calcium 10.5 H (8.4-10.2) mg/dL AST 38 H (14-36) U/L Total Protein 9.8 H (6.3-8.2) g/dL Albumin 5.5 H (3.5-5.0) g/dL Lipase 755 H (23-300) U/L Urine Protein Trace H (Negative) Comments: MRI abdomen reported hepatomegaly. Indeterminate cystic focus within the pancreas. Follow-up could be performed to assess for stability. There may be tumefactive sludge within the gallbladder. Ultrasound gallbladder report slightly hypoechoic appearance of liver. This may be on a technical basis. Correlate with LFTs to exclude hepatitis. No shadowing gallstones or biliary ductal dilation. There is 6 mm nodule along the posterior wall that could represent a gallbladder wall polyp. Six-month follow- up ultrasound to reassess. Assessment and Plan (1) Acute pancreatitis Narrative/Plan: 31-year-old female who presented with abdominal pain nausea vomiting and diarrhea. She was noted to have elevated lipase 755. No prior history of pancreatitis. Denies any history of alcohol abuse, new medications, her family history of pancreatitis. Denies fevers or chills. Denied any previous history of underlying liver disease. She was noted to have a hypoechoic appearance of the liver on MRI and on ultrasound. No cold stones noted no CBD dilation. MRI of digit show a cystic appearance on the pancreas recommend follow-up. Also possible tumefactive sludge in the gallbladder. She states abdominal pain has improved. She had 5 episodes of vomiting yesterday which she states was yellowish. Multiple episodes of diarrhea that was yellowish-green and watery. Unclear etiology of located uncomplicated pancreatiti. Symptoms are consistent with a viral enteritis. Today's labs currently pending. Aggressive hydration, antiemetics, and pain medication as needed. Can consider autoimmune workup if recurrent pancreatitis. Can follow up outpatient with gastroenterology as needed. Current Visit: Yes Status: Acute Code(s): K85.90 - ACUTE PANCREATITIS WITHOUT NECROSIS OR INFECTION, UNSP SNOMED Code(s): 794493893 (2) Nausea & vomiting Current Visit: Yes Status: Acute Code(s): R11.2 - NAUSEA WITH VOMITING, UNSPECIFIED SNOMED Code(s): 65558068 Plan: 1. Continue symptomatic and supportive care 2. Antiemetics as needed 3. Aggressive IV hydration 4. Nothing by mouth advance to clear liquids as tolerated 5. Pain medication as needed 6. Consider possible general surgery consult for tumefactive sludge Thank you for allowing us to participate in the care of the patient, the GI service will sign off, gastroenterology will not be available at the hospital this weekend and through next week. If further evaluation by gastroenterology is required the patient will need transfer as per the primary team's discretion. Dr. Kavon Hatch I agree with the dictator's note, documented as a scribe by Мария Kirkland.
--- NOTE | 2021-09-17 15:36 | P.PN ---
Subjective Progress Note Date: 09/17/21 Pt still c/o abd pain, but improved overall. MRI abdomen shows indeterminite pancreatic lesion, which will require follow up. GI recs appreciated Gen: awake, alert HEENT: normocephalic, atraumatic, good hearing acuity, moist mucous membranes Resp: good air exchange, breathing comfortably with no accessory muscle use CVS: good distal perfusion x 4, GI: soft, tender to palpation in the epigastrium : no SPT, no CVAT, rivrea catheter not present MSK: no pitting edema, no clubbing Neuro: non-focal, moving all extremities Psych: cooperative, euthymic mood Labs and imaging reviewed as above Assessment/plan: Acute pancreatitis Gallbladder polyp Pancreatic calcification -Admit inpatient -IV fluids -Pain control -CLD -Nausea control -MRI of the abdomen = tumefactive sludge in GB, indeterminate lesion in the pancreas requiring follow up -We'll require follow-up gallbladder ultrasound in 6 months Obesity class II, BMI 35.2 -Outpatient weight loss referral Patient is full code DVT prophylaxis with enoxaparin Objective - Vital Signs Vital signs: Vital Signs Temp 98.0 F 09/17/21 13:14 Pulse 57 L 09/17/21 13:14 Resp 20 09/17/21 13:14 BP 102/65 09/17/21 13:14 Pulse Ox 100 09/17/21 13:14 Intake & Output 09/16/21 09/17/21 09/17/21 18:59 06:59 18:59 Intake Total 118 Balance 118 Weight 81.647 kg Intake: Oral 118 Other: # Voids 2 2 # Bowel Movements 0 - Labs CBC & Chem 7: 09/17/21 07:34 09/16/21 12:09
[2021-09-17 16:25] LABS: African American GFR (CKD) 97.4 (60.0-200.0); Anion Gap 14.1 mmol/L (10.00-18.00); Blood Urea Nitrogen 12.6 mg/dL (9.0-27.0); Calcium 8.9 mg/dL (8.7-10.3); Carbon Dioxide 16.9 mmol/L (20.0-27.5); Potassium 3.9 mmol/L (3.5-5.5)
--- NOTE | 2021-09-17 17:06 | P.DS ---
Providers Date of admission: 09/16/21 15:13 Expected date of discharge: 09/17/21 Attending physician: Patt Borjas MD Consults: 09/16/21 16:36 Consult Physician Urgent Consulting Provider: Kasey Hatch Consult Reason/Comments: nausea/vomiting Do you want consulting provider notified?: Yes Primary care physician: Tod Willett Hospital Course: Acute pancreatitis Gallbladder polyp Pancreatic calcification Obesity class II, BMI 35.2 31-year-old woman with obesity class II presented with abdominal pain. In the emergency room, patient was afebrile, 118/92, heart rate 93, 98% on room air. CBC was remarkable for a white count of 19.4, hemoglobin of 17.7. Chemistries show non-anion gap metabolic acidosis with bicarb of 19. Liver function tests were notable for total protein of 9.8, albumin of 5.5, AST of 38. Lipase was elevated at 755. Urinalysis was significant for trace protein. Gallbladder ultrasound was obtained, demonstrating echogenic focus measuring 0.4 cm pancreatic head suggesting nonspecific calcification, gallbladder itself had a mural based nodular soft tissue area measuring 0.6 cm, likely representing gallbladder wall polyp. MRI Abd was completed due to pancreatic head calcification, and it returned as an indeterminate nodule that will require follow up. Symptomatically, patient reported resolution of her pain by 4/1 PM. She was discharged home with zofran PRN for nausea, and with instructions to f/u with PCP. Dc time < 30 minutes Gen: awake, alert HEENT: normocephalic, atraumatic, good hearing acuity, moist mucous membranes Resp: good air exchange, breathing comfortably with no accessory muscle use CVS: good distal perfusion x 4, GI: soft, tender to palpation in the epigastrium : no SPT, no CVAT, rivera catheter not present MSK: no pitting edema, no clubbing Neuro: non-focal, moving all extremities Psych: cooperative, euthymic mood Patient Condition at Discharge: Good Plan - Discharge Summary New Discharge Prescriptions: New Ondansetron [Zofran] 4 mg PO Q4H PRN #30 tab PRN Reason: Nausea Discharge Medication List Ondansetron [Zofran] 4 mg PO Q4H PRN #30 tab 09/17/21 [Rx] Follow up Appointment(s)/Referral(s): Tod Willett MD [Primary Care Provider] - 1-2 days Discharge Disposition: HOME SELF-CARE
== END 2021-09-17 18:38 | disposition home or self-care (01) ==
LOC: EC 11:24 → 6NMEDSUR 15:13
PROVIDERS: ADMIT Internal Medicine; ATTEND Internal Medicine
DX: K85.90 Acute pancreatitis without necrosis or infection, unspecified (principal); K82.4 Cholesterolosis of gallbladder; K82.8 Other specified diseases of gallbladder; E66.9 Obesity, unspecified; Z68.35 Body mass index [BMI] 35.0-35.9, adult; E87.2 Acidosis; Z86.14 Personal history of Methicillin resistant Staphylococcus aureus infection; Z80.0 Family history of malignant neoplasm of digestive organs
CPT/HCPCS: 96361 ×3; 96374; 96375; 99285; 36415; 80053; 80048; 83605; 83690 ×2; 85025 ×2; 81003; 81025; 76705; 74183; G0378 ×2; J1200; J2405; A9585

== ENCOUNTER 2021-12-03 10:15 | Observation (INO) | payer BC ==
[2021-12-03] MEDS ORDERED: SODIUM CHLORIDE 0.9% 2,000 ML IV STA (10:54)
[2021-12-03] MEDS ORDERED: HYDROmorphone 0.5 MG/0.5 ML SYRINGE IVP STA (10:54)
[2021-12-03] MEDS ORDERED: ONDANSETRON 4 MG/2 ML VIAL IVP STA (10:54)
--- NOTE | 2021-12-03 11:11 | ED ---
Abdominal Pain HPI - General Chief Complaint: Abdominal Pain Stated Complaint: Abd pain, NVD Time Seen by Provider: 12/03/21 10:28 Source: patient Mode of arrival: ambulatory Limitations: no limitations - History of Present Illness Initial Comments: Patient is a 31-year-old female who presents to the emergency department with a chief complaint of abdominal pain, nausea, vomiting, and diarrhea. Patient was evaluated in our emergency department on 09/16/21 where she was diagnosed with acute pancreatitis. At this time abdominal ultrasound showed a gallbladder polyp and calcification of the pancreatic head. Patient was admitted and abdominal MRI was performed which was significant for an indeterminate cystic focus within the pancreas and gallbladder sludge. Patient does have pancreatic cancer in the family which her uncle and father both from. After discharge her primary care provider referred her to [facility] for ER[facility] which is scheduled on December 23. Patient has been doing well until this week when she had intermittent nausea and vomiting. Patient woke up this morning with severe epigastric pain with radiation to the back as well as diarrhea which she describes as watery. She denies blood in the vomit and diarrhea. Patient not tolerating oral intake. Denies fever, chills, and other concerns. Denies alcohol use. - Related Data Previous Rx's Medication Instructions Recorded Ondansetron [Zofran] 4 mg PO Q4H PRN #30 tab 09/17/21 Allergies Allergy/AdvReac Type Severity Reaction Status Date / Time hazelnut Allergy Unknown Verified 12/03/21 11:23 Review of Systems ROS Statement: Those systems with pertinent positive or pertinent negative responses have been documented in the HPI. ROS Other: All systems not noted in ROS Statement are negative. Past Medical History Past Medical History: No Reported History History of Any Multi-Drug Resistant Organisms: MRSA Date of last positivie culture/infection: 02/26/21 MDRO Source:: Left 2nd Toe Past Surgical History: No Surgical Hx Reported Past Anesthesia/Blood Transfusion Reactions: No Reported Reaction Past Psychological History: No Psychological Hx Reported Smoking Status: Never smoker Past Alcohol Use History: None Reported Past Drug Use History: None Reported - Past Family History family \ Family Medical History: No Reported History General Exam Limitations: no limitations General appearance: alert, in distress (severe pain ) Head exam: Present: atraumatic, normocephalic, normal inspection Eye exam: Present: normal appearance, PERRL, EOMI. Absent: scleral icterus, conjunctival injection, periorbital swelling Respiratory exam: Present: normal lung sounds bilaterally. Absent: respiratory distress, wheezes, rales, rhonchi, stridor Cardiovascular Exam: Present: normal rhythm, tachycardia, normal heart sounds. Absent: systolic murmur, diastolic murmur, rubs, gallop, clicks GI/Abdominal exam: Present: soft, tenderness (severe in epigastric region. negative Todd sign ), normal bowel sounds. Absent: distended, guarding, rebound, rigid Back exam: Present: normal inspection, full ROM. Absent: tenderness Neurological exam: Present: alert, oriented X3, CN II-XII intact Psychiatric exam: Present: normal affect, anxious Skin exam: Present: warm, dry, intact, normal color. Absent: rash Course Vital Signs 12/03/21 12/03/21 10:16 11:24 Temperature 97.8 F Pulse Rate 113 H 76 Respiratory 16 16 Rate Blood Pressure 143/95 116/72 O2 Sat by Pulse 98 99 Oximetry Medical Decision Making - Medical Decision Making This is a 31-year-old female with recent acute pancreatitis diagnosed presents with epigastric pain, nausea, vomiting, diarrhea. Thorough history and examination were performed. Patient appears to be in significant distress due to pain. There is significant tenderness in the epigastric region. Negative Todd sign. I will obtain laboratory studies as patient had a recent gallbladder ultrasound and abdominal MRI. Pain and nausea controlled. Large fluid bolus given. Laboratory studies significant for lipase at 580, which is a bit decreased from her previous acute pancreatitis at 755. Amylase is elevated at 126. White blood cell count is elevated at 14.3. Results discussed with patient and her mother. Because patient is having severe symptoms as well as inability to tolerate oral intake it is appropriate patient admitted to observation for pain control and hydration. Patient is agreeable to admission. Case discussed with [facility]. Patient will be admitted to her service for further evaluation and management. Dr. Hutchinson is my attending. - Lab Data Result diagrams: 12/03/21 11:12 12/03/21 11:12 Lab Results 12/03/21 12/03/21 12/03/21 Range/Units 11:12 11:12 11:12 WBC 14.3 H (3.8-10.6) k/uL RBC 5.33 (3.80-5.40) m/uL Hgb 15.8 (11.4-16.0) gm/dL Hct 46.2 H (34.0-46.0) % MCV 86.6 (80.0-100.0) fL MCH 29.6 (25.0-35.0) pg MCHC 34.1 (31.0-37.0) g/dL RDW 12.3 (11.5-15.5) % Plt Count 409 (150-450) k/uL MPV 7.6 Neutrophils % 75 % Lymphocytes % 16 % Monocytes % 5 % Eosinophils % 1 % Basophils % 1 % Neutrophils # 10.8 H (1.3-7.7) k/uL Lymphocytes # 2.3 (1.0-4.8) k/uL Monocytes # 0.8 (0-1.0) k/uL Eosinophils # 0.1 (0-0.7) k/uL Basophils # 0.1 (0-0.2) k/uL Sodium (137-145) mmol/L Potassium (3.5-5.1) mmol/L Chloride (98-107) mmol/L Carbon Dioxide (22-30) mmol/L Anion Gap mmol/L BUN (7-17) mg/dL Creatinine (0.52-1.04) mg/dL Est GFR (CKD-EPI)AfAm (>60 ml/min/1.73 sqM) Est GFR (CKD-EPI)NonAf (>60 ml/min/1.73 sqM) Glucose (74-99) mg/dL Plasma Lactic Acid [place] (0.7-2.0) mmol/L Calcium (8.4-10.2) mg/dL Total Bilirubin (0.2-1.3) mg/dL AST (14-36) U/L ALT (4-34) U/L Alkaline Phosphatase (38-126) U/L Total Protein (6.3-8.2) g/dL Albumin (3.5-5.0) g/dL Amylase (30-110) U/L Lipase (23-300) U/L Urine Color Yellow Urine Appearance Cloudy H (Clear) Urine pH 6.0 (5.0-8.0) Ur Specific [place] 1.028 (1.001-1.035) Urine Protein 1+ H (Negative) Urine Glucose (UA) Negative (Negative) Urine Ketones Negative (Negative) Urine Blood Trace H (Negative) Urine Nitrite Negative (Negative) Urine Bilirubin Negative (Negative) Urine Urobilinogen <2.0 (<2.0) mg/dL Ur Leukocyte Esterase Trace H (Negative) Urine RBC 1 (0-5) /hpf Urine WBC 3 (0-5) /hpf Ur Squamous Epith Cells 10 H (0-4) /hpf Hyaline Casts 1 (0-2) /lpf Urine Mucus Rare H (None) /hpf Urine HCG, Qual Not Detected (Not Detectd) 12/03/21 12/03/21 Range/Units 11:12 11:12 WBC (3.8-10.6) k/uL RBC (3.80-5.40) m/uL Hgb (11.4-16.0) gm/dL Hct (34.0-46.0) % MCV (80.0-100.0) fL MCH (25.0-35.0) pg MCHC (31.0-37.0) g/dL RDW (11.5-15.5) % Plt Count (150-450) k/uL MPV Neutrophils % % Lymphocytes % % Monocytes % % Eosinophils % % Basophils % % Neutrophils # (1.3-7.7) k/uL Lymphocytes # (1.0-4.8) k/uL Monocytes # (0-1.0) k/uL Eosinophils # (0-0.7) k/uL Basophils # (0-0.2) k/uL Sodium 138 (137-145) mmol/L Potassium 3.8 (3.5-5.1) mmol/L Chloride 106 (98-107) mmol/L Carbon Dioxide 20 L (22-30) mmol/L Anion Gap 12 mmol/L BUN 13 (7-17) mg/dL Creatinine 0.89 (0.52-1.04) mg/dL Est GFR (CKD-EPI)AfAm >90 (>60 ml/min/1.73 sqM) Est GFR (CKD-EPI)NonAf 86 (>60 ml/min/1.73 sqM) Glucose 137 H (74-99) mg/dL Plasma Lactic Acid [place] 1.9 (0.7-2.0) mmol/L Calcium 10.3 H (8.4-10.2) mg/dL Total Bilirubin 0.7 (0.2-1.3) mg/dL AST 34 (14-36) U/L ALT 28 (4-34) U/L Alkaline Phosphatase 81 (38-126) U/L Total Protein 8.7 H (6.3-8.2) g/dL Albumin 5.1 H (3.5-5.0) g/dL Amylase 126 H (30-110) U/L Lipase 580 H (23-300) U/L Urine Color Urine Appearance (Clear) Urine pH (5.0-8.0) Ur Specific [place] (1.001-1.035) Urine Protein (Negative) Urine Glucose (UA) (Negative) Urine Ketones (Negative) Urine Blood (Negative) Urine Nitrite (Negative) Urine Bilirubin (Negative) Urine Urobilinogen (<2.0) mg/dL Ur Leukocyte Esterase (Negative) Urine RBC (0-5) /hpf Urine WBC (0-5) /hpf Ur Squamous Epith Cells (0-4) /hpf Hyaline Casts (0-2) /lpf Urine Mucus (None) /hpf Urine HCG, Qual (Not Detectd) Disposition Clinical Impression: Acute pancreatitis Disposition: ADMITTED IP TO THIS [facility] Condition: Good Referrals: Tod Willett MD [Primary Care Provider] - 1-2 days
[2021-12-03 11:28] LABS: Basophils # (A) 0.1 k/uL (0-0.2); Basophils % (A) 1 %; Eosinophils # (A) 0.1 k/uL (0-0.7); Eosinophils % (A) 1 %; HCT 46.2 % (34.0-46.0); HGB 15.8 gm/dL (11.4-16.0); Lymphocytes # (A) 2.3 k/uL (1.0-4.8); Lymphocytes % (A) 16 %; MCH 29.6 pg (25.0-35.0); MCHC 34.1 g/dL (31.0-37.0); MCV 86.6 fL (80.0-100.0); Mean Platelet Volume 7.6; Monocytes # (A) 0.8 k/uL (0-1.0); Monocytes % (A) 5 %; Neutrophils # (A) 10.8 k/uL (1.3-7.7); Neutrophils % (A) 75 %; Platelet Count 409 k/uL (150-450); RBC 5.33 m/uL (3.80-5.40); RDW 12.3 % (11.5-15.5); WBC 14.3 k/uL (3.8-10.6)
[2021-12-03 11:31] LABS: Appearance,Urine Cloudy (Clear); Bilirubin,Urine Negative (Negative); Blood,Urine Trace (Negative); Color,Urine Yellow; Glucose,Urine (UA) Negative (Negative); Hyaline Casts,Urine 1 /lpf (0-2); Ketones,Urine Negative (Negative); Leukocyte Esterase,Urine Trace (Negative); Mucus,Urine Rare /hpf; Nitrite,Urine Negative (Negative); Protein,Urine 1+ (Negative); RBC,Urine 1 /hpf (0-5); Specific Gravity,Urine 1.028 (1.001-1.035); Squamous Epithelial Cell,Urine 10 /hpf (0-4); Urobilinogen,Urine <2.0 mg/dL (<2.0); WBC,Urine 3 /hpf (0-5)
[2021-12-03 11:46] LABS: ALT 28 U/L (4-34); AST 34 U/L (14-36); African American GFR (CKD) >90 (>60 ml/min/1.73 sqM); Albumin 5.1 g/dL (3.5-5.0); Alkaline Phosphatase 81 U/L (38-126); Amylase 126 U/L (30-110); Anion Gap 12 mmol/L; Blood Urea Nitrogen 13 mg/dL (7-17); Calcium 10.3 mg/dL (8.4-10.2); Carbon Dioxide 20 mmol/L (22-30); Chloride 106 mmol/L (98-107); Glucose 137 mg/dL (74-99); Lipase 580 U/L (23-300); Non-African American GFR(CKD) 86 (>60 ml/min/1.73 sqM); Potassium 3.8 mmol/L (3.5-5.1); Sodium 138 mmol/L (137-145); Total Bilirubin 0.7 mg/dL (0.2-1.3); Total Protein 8.7 g/dL (6.3-8.2)
[2021-12-03] MEDS ORDERED: NALOXONE 0.4 MG/ML 1 ML VIAL IV PRN ×2 (12:20→13:26)
[2021-12-03] MEDS ORDERED: ONDANSETRON 4 MG/2 ML VIAL IVP PRN (12:33)
[2021-12-03] MEDS ORDERED: HYDROmorphone 0.5 MG/0.5 ML SYRINGE IVP PRN (12:33)
[2021-12-03] MEDS: SODIUM CHLORIDE 0.9% 1,000 ML IV SCH ×2 (12:56→21:21)
[2021-12-03] MEDS ORDERED: ACETAMINOPHEN TAB 325 MG TAB PO PRN (13:26)
[2021-12-03] MEDS ORDERED: HYDROmorphone 1 MG/ML 1 ML SYRINGE IVP PRN (13:26)
[2021-12-03] MEDS ORDERED: HYDROcodone/APAP 5-325MG 1 EACH TAB PO PRN (13:26)
--- NOTE | 2021-12-03 14:00 | CT ---
EXAMINATION TYPE: CT ChestAbdPelvis w con DATE OF EXAM: 12/03/2021 COMPARISON: None HISTORY: Epigastric abdominal pain and vomiting. CT DLP: 1046.6 mGycm CONTRAST: CT scan of the chest, abdomen and pelvis is performed without Oral Contrast and with IV Contrast, pat ient injected with 100ml mL of Isovue 300. CT Chest: LUNGS: The lungs are clear and free of infiltrate or atelectasis. No pulmonary nodule or mass is det ected. No pleural effusion or CT evidence of interstitial lung disease. MEDIASTINUM: Thoracic aorta is of normal caliber. The heart is not enlarged. No evidence for media stinal mass or adenopathy. HILAR STRUCTURES: No evidence for mass. No hilar adenopathy is appreciated. OTHER: No significant abnormality. CONTRAST CT ABDOMEN AND PELVIS FINDINGS: LIVER/GB: No calcified gallstones. No space occupying hepatic lesion. Biliary tree is of normal ca liber. PANCREAS: No inflammation. No distinct mass. SPLEEN: No splenic enlargement. No lesion seen. ADRENALS: No nodule. No thickening. KIDNEYS/BLADDER: No hydronephrosis. No nephrolithiasis. No distinct renal mass. BOWEL: Nonvisualization of the appendix. There is thick walled fluid distended small bowel. There is also fluid content noted throughout the colon. Correlate for enterocolitis. No evidence for free air or abscess. GENITAL ORGANS: No gross abnormality. LYMPH NODES: No greater than 1cm abdominal or pelvic lymph nodes are appreciated. AORTA: No significant abnormality. OSSEOUS STRUCTURES: No significant abnormality is seen. OTHER: No significant additional abnormality is seen. IMPRESSION: 1. There is thick walled fluid distended small bowel. There is also fluid content noted throughout th e colon. Correlate for enterocolitis. 2. The pancreas appears normal. Correlate with amylase and lipase.
--- NOTE | 2021-12-03 14:29 | US ---
EXAMINATION TYPE: US gallbladder DATE OF EXAM: 12/03/2021 COMPARISON: CT & MRI CLINICAL HISTORY: Recurrent acute pancreatitis r/o gall stones. EXAM MEASUREMENTS: Liver Length: 13.1 cm Gallbladder Wall: 0.2 cm CBD: 0.5 cm Right Kidney: 10.5 x 4.4 x 4.8 cm Pancreas: visualized portions wnl Liver: wnl Gallbladder: No stones seen Evidence for sonographic Todd's sign: patient is in a great deal of pain, unable to distinguish positive Todd's or not. CBD: wnl Right Kidney: No hydronephrosis or masses seen IMPRESSION: No significant sonographic abnormality appreciated at this time.
[2021-12-03 15:19] LABS: C Reactive Protein <0.5 mg/dL (<1.0)
--- NOTE | 2021-12-03 16:14 | P.PN ---
Subjective Progress Note Date: 12/03/21 Chief complaint: Abdominal pain with nausea vomiting diarrhea 6 days History of present is illness: Patient is a 31-year-old female with recent admission on September 2021 with a diagnosis of pancreatitis. Patient presents to the emergency department with a chief complaint of abdominal pain, nausea, vomiting, and diarrhea that started last Monday. On September she had abdominal ultrasound showed a gallbladder polyp and calcification of the pancreatic head. Patient was admitted and abdominal MRI was performed which was significant for an indeterminate cystic focus within the pancreas and gallbladder sludge. The patient currently has an appointment with the GI specialist of [facility] for possible EUS and biopsy JuneDecember 17 Patient does have pancreatic cancer in the family which her uncle and father both from. After discharge her primary care provider referred her to [facility] for endoscopic ultrasound which is scheduled on December. Patient has been doing well until this week when she had intermittent nausea and vomiting. Patient woke up this morning with severe epigastric pain with radiation to the back as well as diarrhea which she describes as watery. She denies blood in the vomit and diarrhea. Patient not tolerating oral intake. Denies fever, chills, and other concerns. Denies alcohol use. Computed tomography scan ordered by mn showed evidence of enterocolitis. Ultrasound was a gallbladder came back unremarkable Review of system: All 14 review of systems evaluated and all negative except for above. Physical exoneration: General: non toxic, no distress, appears at stated age. Derm: warm, dry. Head: atraumatic, normocephalic, symmetric. Eyes: EOMI, no lid lag, anicteric sclera Mouth: no lip lesion, mucus membranes moist Cardiovascular: S1S2 reg, no murmur, positive posterior tibial pulse bilateral, Lungs: CTA bilateral, no rhonchi, no rales , no accessory muscle use Abdominal: soft, tender epigastrium to palpation, without any rebound tenderness or rigidity. Ext: no gross muscle atrophy, no edema, no contractures Neuro: CN II-XI grossly intact, no focal neuro deficits Psych: Alert, oriented, appropriate affect. Assessment and plan: #Acute abdominal pain with intractable nausea vomiting with diarrhea -Mostly secondary to enterocolitis -Nothing by mouth -Check C. diff -Consult general surgery -Start IV Flagyl #Acute on chronic pancreatitis -Recent history of acute pancreatitis on September 2021 with cystic focus within the head of the pancreas -Both amylase and lipase are elevated -Patient had an MRCP on September and showed cystic focus within the pancreas -Patient scheduled to follow-up with [facility] specialist for EUS December 17. -Keep nothing by mouth -IV fluids -Pain control #GI and DVT prophylaxis Objective - Vital Signs Vital signs: Vital Signs Temp 97.8 F 12/03/21 10:16 Pulse 78 12/03/21 14:00 Resp 16 12/03/21 11:24 BP 122/81 12/03/21 14:00 Pulse Ox 99 12/03/21 11:24 FiO2 Intake & Output 12/02/21 12/03/21 12/03/21 18:59 06:59 18:59 Weight 77.111 kg - Labs CBC & Chem 7: 12/03/21 11:12 12/03/21 11:12 Labs: Abnormal Lab Results - Last 24 Hours (Table) 12/03/21 12/03/21 12/03/21 Range/Units 11:12 11:12 11:12 WBC 14.3 H (3.8-10.6) k/uL Hct 46.2 H (34.0-46.0) % Neutrophils # 10.8 H (1.3-7.7) k/uL Carbon Dioxide 20 L (22-30) mmol/L Glucose 137 H (74-99) mg/dL Calcium 10.3 H (8.4-10.2) mg/dL Total Protein 8.7 H (6.3-8.2) g/dL Albumin 5.1 H (3.5-5.0) g/dL Amylase 126 H (30-110) U/L Lipase 580 H (23-300) U/L Urine Appearance Cloudy H (Clear) Urine Protein 1+ H (Negative) Urine Blood Trace H (Negative) Ur Leukocyte Esterase Trace H (Negative) Ur Squamous Epith Cells 10 H (0-4) /hpf Urine Mucus Rare H (None) /hpf
[2021-12-03] MEDS: PANTOPRAZOLE 40 MG/10 ML VIAL IVP SCH (16:34)
[2021-12-03] MEDS: metroNIDAZOLE-NS PMX 500 MG in SALINE 1 100ML.BAG IVPB SCH (16:34)
[2021-12-03] MEDS: CHOLESTYRAMINE (WITH SUGAR) 4 GM PACKET PO SCH (20:14)
[2021-12-04] MEDS: metroNIDAZOLE-NS PMX 500 MG in SALINE 1 100ML.BAG IVPB SCH ×3 (00:49→15:49)
--- NOTE | 2021-12-04 08:00 | P.HPIM ---
History of Present Illness H&P Date: 12/03/21 History of present is illness: Patient is a 31-year-old female with recent admission on September 2021 with a diagnosis of pancreatitis. Patient presents to the emergency department with a chief complaint of abdominal pain, nausea, vomiting, and diarrhea that started last Monday. On September she had abdominal ultrasound showed a gallbladder polyp and calcification of the pancreatic head. Patient was admitted and abdominal MRI was performed which was significant for an indeterminate cystic focus within the pancreas and gallbladder sludge. The patient currently has an appointment with the GI specialist of [facility] for possible EUS and biopsy JuneDecember 17 Patient does have pancreatic cancer in the family which her uncle and father both from. After discharge her primary care provider referred her to [facility] for endoscopic ultrasound which is scheduled on December. Patient has been doing well until this week when she had in termittent nausea and vomiting. Patient woke up this morning with severe epigastric pain with radiation to the back as well as diarrhea which she describes as watery. She denies blood in the vomit and diarrhea. Patient not tolerating oral intake. Denies fever, chills, and other concerns. Denies alcohol use. Computed tomography scan ordered by or showed evidence of enterocolitis. Ultrasound was a gallbladder came back unremarkable Review of system: All 14 review of systems evaluated and all negative except for above. Physical exoneration: General: non toxic, no distress, appears at stated age. Derm: warm, dry. Head: atraumatic, normocephalic, symmetric. Eyes: EOMI, no lid lag, anicteric sclera Mouth: no lip lesion, mucus membranes moist Cardiovascular: S1S2 reg, no murmur, positive posterior tibial pulse bilateral, Lungs: CTA bilateral, no rhonchi, no rales , no accessory muscle use Abdominal: soft, tender epigastrium to palpation, without any rebound tenderness or rigidity. Ext: no gross muscle atrophy, no edema, no contractures Neuro: CN II-XI grossly intact, no focal neuro deficits Psych: Alert, oriented, appropriate affect. Assessment and plan: #Acute abdominal pain with intractable nausea vomiting with diarrhea -Mostly secondary to enterocolitis -Nothing by mouth -Check C. diff -Consult general surgery -Start IV Flagyl #Acute on chronic pancreatitis -Recent history of acute pancreatitis on September 2021 with cystic focus within the head of the pancreas -Both amylase and lipase are elevated -Patient had an MRCP on September and showed cystic focus within the pancreas -Patient scheduled to follow-up with [facility] GI specialist for EUS December 17. -Keep nothing by mouth -IV fluids -Pain control #GI and DVT prophylaxis Past Medical History Past Medical History: No Reported History History of Any Multi-Drug Resistant Organisms: MRSA Date of last positivie culture/infection: 02/26/21 MDRO Source:: Left 2nd Toe Past Surgical History: No Surgical Hx Reported Past Anesthesia/Blood Transfusion Reactions: No Reported Reaction Past Psychological History: No Psychological Hx Reported Smoking Status: Never smoker Past Alcohol Use History: None Reported Past Drug Use History: None Reported - Past Family History family \ Family Medical History: No Reported History Medications and Allergies Home Medications Medication Instructions Recorded Confirmed Type Ondansetron [Zofran] 4 mg PO Q4H PRN #30 tab 09/17/21 12/03/21 Rx Allergies Allergy/AdvReac Type Severity Reaction Status Date / Time hazelnut Allergy Unknown Verified 12/03/21 11:23 Physical Exam Vitals: Vital Signs Temp Pulse Pulse Resp BP BP Pulse Ox 12/04/21 04:35 98.2 F 60 18 109/66 98 12/04/21 00:30 63 18 12/04/21 00:16 98.0 F 63 18 124/72 99 12/03/21 20:00 74 116/75 12/03/21 14:00 78 122/81 12/03/21 11:24 76 16 116/72 99 12/03/21 10:16 97.8 F 113 H 16 143/95 98 Intake and Output 12/03/21 12/04/21 12/04/21 22:59 06:59 14:59 Intake Total 650 Balance 650 Intake: Intake, IV Titration 650 Amount Sodium Chloride 0.9% 1, 650 000 ml @ 130 mls/hr IV . Q7H42M [facility] Rx#:[id number] Other: Voiding Method Toilet Weight 77.111 kg Results CBC & Chem 7: 12/03/21 11:12 12/03/21 11:12 Labs: Abnormal Lab Results - Last 24 Hours (Table) 12/03/21 12/03/21 12/03/21 Range/Units 11:12 11:12 11:12 WBC 14.3 H (3.8-10.6) k/uL Hct 46.2 H (34.0-46.0) % Neutrophils # 10.8 H (1.3-7.7) k/uL Carbon Dioxide 20 L (22-30) mmol/L Glucose 137 H (74-99) mg/dL Calcium 10.3 H (8.4-10.2) mg/dL Total Protein 8.7 H (6.3-8.2) g/dL Albumin 5.1 H (3.5-5.0) g/dL Amylase 126 H (30-110) U/L Lipase 580 H (23-300) U/L Urine Appearance Cloudy H (Clear) Urine Protein 1+ H (Negative) Urine Blood Trace H (Negative) Ur Leukocyte Esterase Trace H (Negative) Ur Squamous Epith Cells 10 H (0-4) /hpf Urine Mucus Rare H (None) /hpf Thrombosis Risk Factor Assmnt - Choose All That Apply Any of the Below Risk Factors Present?: Yes Each Factor Represents 1 point: Obesity (BMI >25) Other Risk Factors: No Thrombosis Risk Factor Assessment Total Risk Factor Score: 1 Thrombosis Risk Factor Assessment Level: Low Risk
[2021-12-04 08:43] LABS: Basophils # (A) 0.07 X 10*3/uL (0.00-0.10); Basophils % (A) 0.6 %; Eosinophils # (A) 0.08 X 10*3/uL (0.04-0.35); Eosinophils % (A) 0.7 %; HCT 39.1 % (37.2-46.3); HGB 13.1 g/dL (12.0-15.0); Immature Grans, Automated 0.4 %; Lymphocytes % (A) 21.1 %; MCH 28.8 pg (27.0-32.0); MCHC 33.5 g/dL (32.0-37.0); MCV 85.9 fL (80.0-97.0); Mean Platelet Volume 10.6 fL (9.5-12.2); Monocytes # (A) 0.83 X 10*3/uL (0.20-1.00); Monocytes % (A) 7.6 %; NRBC Per 100 WBC 0 /100 WBCS (0.0-0.0); Neutrophils # (A) 7.59 X 10*3/uL (1.80-7.70); Neutrophils % (A) 69.6 %; Platelet Count 318 X 10*3/uL (140-440); RBC 4.55 X 10*6/uL (4.10-5.20); RDW 12.8 % (11.5-14.5); WBC 10.91 X 10*3/uL (4.50-10.00)
[2021-12-04 08:52] LABS: Albumin/Globulin Ratio 1.85 (1.60-3.17); Anion Gap 9.7 mmol/L (10.00-18.00); BUN/Creat Ratio 12.56 Ratio (12.00-20.00); Blood Urea Nitrogen 10.7 mg/dL (9.0-27.0); Calcium 8.9 mg/dL (8.7-10.3); Carbon Dioxide 23.4 mmol/L (20.0-27.5); Globulin 2.1 g/dL (1.6-3.3); Non-African American GFR(CKD) 89.8 (60.0-200.0); Potassium 4.1 mmol/L (3.5-5.5); Total Bilirubin 0.5 mg/dL (0.30-1.20); Total Protein 6.1 g/dL (6.2-8.2)
[2021-12-04] MEDS: PANTOPRAZOLE 40 MG/10 ML VIAL IVP SCH (09:06)
[2021-12-04] MEDS: SODIUM CHLORIDE 0.9% 1,000 ML IV SCH ×3 (09:08→18:38)
[2021-12-04] MEDS: ENOXAPARIN 40 MG/0.4 ML SYRINGE SQ SCH (09:09)
[2021-12-04] MEDS: CHOLESTYRAMINE (WITH SUGAR) 4 GM PACKET PO SCH ×2 (10:22→18:36)
--- NOTE | 2021-12-04 13:02 | P.PN ---
Subjective Chief complaint: Abdominal pain with nausea vomiting diarrhea 6 days History of present is illness: Patient is a 31-year-old female with recent admission on September 2021 with a diagnosis of pancreatitis. Patient presents to the emergency department with a chief complaint of abdominal pain, nausea, vomiting, and diarrhea that started last Monday. On September she had abdominal ultrasound showed a gallbladder polyp and calcification of the pancreatic head. Patient was admitted and abdominal MRI was performed which was significant for an indeterminate cystic focus within the pancreas and gallbladder sludge. The patient currently has an appointment with the GI specialist of [facility] for possible EUS and biopsy JuneDecember 17 Patient does have pancreatic cancer in the family which her uncle and father both from. After discharge her primary care provider referred her to [facility] for endoscopic ultrasound which is scheduled on December. Patient has been doing well until this week when she had intermittent nausea and vomiting. Patient woke up this morning with severe epigastric pain with radiation to the back as well as diarrhea which she describes as watery. She denies blood in the vomit and diarrhea. Patient not tolerating oral intake. Denies fever, chills, and other concerns. Denies alcohol use. Computed tomography scan ordered by me showed evidence of enterocolitis. Ultrasound was a gallbladder came back unremarkable Interval history: She was seen and examined at the bedside. She reports improvement in her abdomi nal pain which is 5 out of 10. She still have loose bowel movements. The nausea vomiting improved overnight. Patient started on clear liquid diet today. Physical exoneration: General: non toxic, no distress, appears at stated age. Derm: warm, dry. Head: atraumatic, normocephalic, symmetric. Eyes: EOMI, no lid lag, anicteric sclera Mouth: no lip lesion, mucus membranes moist Cardiovascular: S1S2 reg, no murmur, positive posterior tibial pulse bilateral, Lungs: CTA bilateral, no rhonchi, no rales , no accessory muscle use Abdominal: soft, tender epigastrium to palpation, without any rebound tenderness or rigidity. Ext: no gross muscle atrophy, no edema, no contractures Neuro: CN II-XI grossly intact, no focal neuro deficits Psych: Alert, oriented, appropriate affect. Assessment and plan: #Acute abdominal pain with intractable nausea vomiting with diarrhea -Mostly secondary to enterocolitis -Nothing by mouth -Negative C. diff -Consult general surgery -Resume IV Flagyl #Acute on chronic pancreatitis -Recent history of acute pancreatitis on September 2021 with cystic focus within the head of the pancreas -Both amylase and lipase are elevated -Patient had an MRCP on September and showed cystic focus within the pancreas -Patient scheduled to follow-up with [facility] GI specialist for EUS December 17. -Keep nothing by mouth -IV fluids -Pain control #GI and DVT prophylaxis Objective - Vital Signs Vital signs: Vital Signs Temp 98.2 F 12/04/21 12:58 Pulse 54 L 12/04/21 12:58 Resp 12 12/04/21 12:58 BP 107/67 12/04/21 12:58 Pulse Ox 100 12/04/21 12:58 FiO2 Intake & Output 12/03/21 12/04/21 12/04/21 18:59 06:59 18:59 Intake Total 650 240 Balance 650 240 Weight 77.111 kg 77.111 kg Intake: Intake, IV Titration 650 Amount Sodium Chloride 0.9% 1, 650 000 ml @ 130 mls/hr IV . Q7H42M [facility] Rx#:[id number] Oral 240 Other: Voiding Method Toilet Toilet # Voids 1 # Bowel Movements 1 - Labs CBC & Chem 7: 12/04/21 06:23 12/04/21 06:23 Labs: Abnormal Lab Results - Last 24 Hours (Table) 12/04/21 12/04/21 Range/Units 06:23 06:23 WBC 10.91 H (4.50-10.00) X 10*3/uL Anion Gap 9.70 L (10.00-18.00) mmol/L Total Protein 6.1 L (6.2-8.2) g/dL
--- NOTE | 2021-12-04 16:27 | P.GSCN ---
History of Present Illness Consult date: 12/04/21 History of present illness: REASON FOR CONSULTATION: Abdominal pain and pancreatitis HISTORY OF PRESENT ILLNESS: The patient is a 31 year old female was admitted for epigastric abdominal pain. She reports her symptoms have been progressive in the last 1-2 days. She reports eating fried chicken prior to her abdominal pain. She reports sharp crampy epigastric abdominal pain of a similar event over 4 months ago. She had recent upper endoscopy performed at [facility] in the last several months. She denies any significant findings. Reports diarrhea including epigastric pain. Separately, patient has pre- existing history of pancreatitis with suspicion of gallstone-induced pancreatitis. General surgery is consulted for abdominal pain and pancreatitis. Patient reports since admission her abdominal pain has improved. PAST MEDICAL HISTORY: See list and reviewed PAST SURGICAL HISTORY: See list and reviewed MEDICATIONS: See list and reviewed ALLERGIES: See list and reviewed SOCIAL HISTORY: See list and reviewed FAMILY HISTORY: See list and reviewed REVIEW OF ORGAN SYSTEMS: CONSTITUTIONAL: No fevers or chills. Obesity, BMI 33.2. EYES: Denies any trouble with vision. Wears glasses. HEENT: No difficulties with hearing. No nosebleeds. No difficulty swallowing. RESPIRATORY: Denies pneumonia. Denies any troubles with breathing or dyspnea on exertion. CARDIOVASCULAR: Denies any chest pain, palpitations, or recent heart attacks. GASTROINTESTINAL: Denies fatty food intolerance. Denies change in bowel habits and gas bloat. GENITOURINARY: Denies any blood in urine or increased urinary frequency. NEUROLOGICAL: Denies any numbness or tingling along the distal extremities. No seizure disorders or headaches. MUSCULOSKELETAL: Denies any back pain, stiffness or joint arthritis. SKIN: No current skin cancer. No rash. PSYCHIATRIC: Denies current depression or suicidal thoughts. ENDOCRINE: Denies current thyroid disorders. Denies any blood sugar glucose intolerance. HEME/LYMPHATIC: Denies any lumps and bumps around the neck. No recent deep venous thrombosis. ALLERGY/IMMUNOLOGY: No immunoglobulin therapy. No immune deficiencies. History of MRSA BREAST: Denies current breast lumps, pain or nipple discharge. PHYSICAL EXAM: VITALS: Reviewed CONSTITUTIONAL: Well developed and in no acute distress. EYES: Conjuctivae without sclera icterus. Extraocular movements grossly intact. HEAD, EARS, NOSE, THROAT: Moist buccal mucosa. Head is atraumatic, normocephalic. Hears conversational speech. No nasal drainage. NECK: Supple. No JV distention. No thyroidomegaly. RESPIRATORY: Non-labored respirations and equal bilateral excursions. No gross wheezes. CARDIOVASCULAR: Palpable 2+ radial pulses. ABDOMEN: Tender epigastrium. No peritonitis. LYMPH: No neck lymphadenopathy. MUSCULOSKELETAL: Nail and fingers with good capillary refill. SKIN: Warm and well perfused with good skin turgor. NEUROLOGIC: Cranial nerves II through XII grossly intact. No focal or lateralizing signs. PSYCH: Appropriate affect. Alert and oriented to person, place and time. Displays appropriate insight. CLINCAL LABS: Reviewed. WBC down 14,000-10,000. Calcium initially elevated currently normal. Lipase elevated 580 on admission now normal. C-reactive protein normal. LFTs normal. IMAGING: Independently reviewed. CT of the abdomen and pelvis demonstrates no free air or bowel obstruction. This is my independent interpretation. Ultrasound of the gallbladder independently reviewed without large gallstones id entified or pericholecystic fluid. This is my independent interpretation. RADIOLOGY: Report reviewed. CT abdomen and pelvis demonstrated enterocolitis. RECORDS: previous old records reviewed from August 2021 with pancreatitis with MRCP report demonstrating sludge within the gallbladder. ASSESSMENT: 1. Epigastric abdominal pain 2. Enterocolitis 3. Pancreatitis 4. Gallbladder sludge PLAN: 1. IV fluid hydration. 2. Liquid diet for enterocolitis. Expectant management with hydration advised. 3. Previous MRCP reviewed with sludge within the gallbladder and an history of recurrent pancreatitis in the setting of fatty foods. Recommend outpatient management. 4. No acute surgical intervention. ADVANCE DIRECTIVE: Thank you for this kind consultation. Past Medical History Past Medical History: No Reported History History of Any Multi-Drug Resistant Organisms: MRSA Year Discovered:: 02/26/21 MDRO Source:: Left 2nd Toe Past Surgical History: No Surgical Hx Reported Past Anesthesia/Blood Transfusion Reactions: No Reported Reaction Past Psychological History: No Psychological Hx Reported Smoking Status: Never smoker Past Alcohol Use History: None Reported Past Drug Use History: None Reported - Past Family History family \ Family Medical History: No Reported History Medications and Allergies Home Medications Medication Instructions Recorded Confirmed Type Ondansetron [Zofran] 4 mg PO Q4H PRN #30 tab 09/17/21 12/03/21 Rx Allergies Allergy/AdvReac Type Severity Reaction Status Date / Time hazelnut Allergy Unknown Verified 12/03/21 11:23 Surgical - Exam Vital Signs Temp Pulse Resp BP Pulse Ox 97.8 F 113 H 16 143/95 98 12/03/21 10:16 12/03/21 10:16 12/03/21 10:16 12/03/21 10:16 12/03/21 10:16 Results - Labs 12/04/21 06:23 12/04/21 06:23 Abnormal Lab Results - Last 24 Hours (Table) 12/04/21 12/04/21 Range/Units 06:23 06:23 WBC 10.91 H (4.50-10.00) X 10*3/uL Anion Gap 9.70 L (10.00-18.00) mmol/L Total Protein 6.1 L (6.2-8.2) g/dL Diabetes panel 12/04/21 Range/Units 06:23 Sodium 141 (135-145) mmol/L Potassium 4.1 (3.5-5.5) mmol/L Chloride 108 (96-109) mmol/L Carbon Dioxide 23.4 (20.0-27.5) mmol/L BUN 10.7 (9.0-27.0) mg/dL Creatinine 0.9 (0.6-1.5) mg/dL Glucose 91 (70-110) mg/dL Calcium 8.9 (8.7-10.3) mg/dL AST 22 (13-35) U/L ALT 20 (8-44) U/L Alkaline Phosphatase 51 (41-126) U/L Total Protein 6.1 L (6.2-8.2) g/dL Albumin 4.0 (3.8-4.9) g/dL Calcium panel 12/04/21 Range/Units 06:23 Calcium 8.9 (8.7-10.3) mg/dL Albumin 4.0 (3.8-4.9) g/dL Pituitary panel 12/04/21 Range/Units 06:23 Sodium 141 (135-145) mmol/L Potassium 4.1 (3.5-5.5) mmol/L Chloride 108 (96-109) mmol/L Carbon Dioxide 23.4 (20.0-27.5) mmol/L BUN 10.7 (9.0-27.0) mg/dL Creatinine 0.9 (0.6-1.5) mg/dL Glucose 91 (70-110) mg/dL Calcium 8.9 (8.7-10.3) mg/dL Adrenal panel 12/04/21 Range/Units 06:23 Sodium 141 (135-145) mmol/L Potassium 4.1 (3.5-5.5) mmol/L Chloride 108 (96-109) mmol/L Carbon Dioxide 23.4 (20.0-27.5) mmol/L BUN 10.7 (9.0-27.0) mg/dL Creatinine 0.9 (0.6-1.5) mg/dL Glucose 91 (70-110) mg/dL Calcium 8.9 (8.7-10.3) mg/dL Total Bilirubin 0.50 (0.30-1.20) mg/dL AST 22 (13-35) U/L ALT 20 (8-44) U/L Alkaline Phosphatase 51 (41-126) U/L Total Protein 6.1 L (6.2-8.2) g/dL Albumin 4.0 (3.8-4.9) g/dL
[2021-12-04 18:06] LABS: Chol/HDL Ratio 3.59 Ratio; LDL Cholesterol,Calculated 151.5 mg/dL (0.0-131.0)
[2021-12-05] MEDS: SODIUM CHLORIDE 0.9% 1,000 ML IV SCH (00:42)
[2021-12-05] MEDS: metroNIDAZOLE-NS PMX 500 MG in SALINE 1 100ML.BAG IVPB SCH ×2 (00:44→08:29)
[2021-12-05 05:40] VITALS: TEMP 98.2
[2021-12-05] MEDS: PANTOPRAZOLE 40 MG/10 ML VIAL IVP SCH (08:28)
[2021-12-05] MEDS: ENOXAPARIN 40 MG/0.4 ML SYRINGE SQ SCH (08:32)
[2021-12-05] MEDS: CHOLESTYRAMINE (WITH SUGAR) 4 GM PACKET PO SCH (11:25)
--- NOTE | 2021-12-05 11:36 | P.DS ---
Providers Date of admission: 12/03/21 13:13 Expected date of discharge: 12/05/21 Attending physician: Eb Livingston MD Consults: 12/04/21 11:02 Consult Physician Routine Consulting Provider: Chrissie Zepeda Consult Reason/Comments: colitis Do you want consulting provider notified?: Yes Primary care physician: [facility] Course: History of present is illness: Patient is a 31-year-old female with recent admission on September 2021 with a diagnosis of pancreatitis. Patient presents to the emergency department with a chief complaint of abdominal pain, nausea, vomiting, and diarrhea that started last Monday. On September she had abdominal ultrasound showed a gallbladder polyp and calcification of the pancreatic head. Patient was admitted and abdominal MRI was performed which was significant for an indeterminate cystic focus within the pancreas and gallbladder sludge. The patient currently has an appointment with the GI specialist of [facility] for possible EUS and biopsy JuneDecember 17 Patient does have pancreatic cancer in the family which her uncle and father both from. After discharge her primary care provider referred her to [facility] for endoscopic ultrasound which is scheduled on December. Patient has been doing well until this week when she had intermittent nausea and vomiting. Patient woke up this morning with severe epigastric pain with radiation to the back as well as diarrhea which she describes as watery. She denies blood in the vomit and diarrhea. Patient not tolerating oral intake. Denies fever, chills, and other concerns. Denies alcohol use. Computed tomography scan ordered by pr showed evidence of enterocolitis. Ultrasound was a gallbladder came back unremarkable Detailed problem list: #Acute abdominal pain with intractable nausea vomiting with diarrhea -Mostly secondary to enterocolitis -Diet was advanced and tolerated -Negative C. diff -General surgery input appreciated -Switch IV Flagyl to oral Flagyl 500 mg daily for 5 days after discharge #Acute on chronic pancreatitis -Improved -Recent history of acute pancreatitis on September 2021 with cystic focus within the head of the pancreas -Lipase level normalized -Patient had an MRCP on September and showed cystic focus within the pancreas -[facility] 17. -Diet was advanced and tolerated -Status post IV fluids -Pain control Physical examination discharge: General: non toxic, no distress, appears at stated age Derm: warm, dry Head: atraumatic, normocephalic, symmetric Eyes: EOMI, no lid lag, anicteric sclera Mouth: no lip lesion, mucus membranes moist Cardiovascular: S1S2 reg, no murmur, positive posterior tibial pulse bilateral, Lungs: CTA bilateral, no rhonchi, no rales , no accessory muscle use Abdominal: soft, nontender to palpation, no guarding, no appreciable organomegaly Ext: no gross muscle atrophy, no edema, no contractures Neuro: CN II-XI grossly intact, no focal neuro deficits Psych: Alert, oriented, appropriate affect Patient Condition at Discharge: Stable Plan - Discharge Summary Discharge Rx Participant: Yes New Discharge Prescriptions: New Pantoprazole Sodium [Protonix] 40 mg PO DAILY #30 tab metroNIDAZOLE [Flagyl] 500 mg PO TID #15 tab HYDROcodone/APAP 5-325MG [[place] 5-325] 1 each PO Q6HR PRN #12 tab PRN Reason: Moderate Pain Continue Ondansetron [Zofran] 4 mg PO Q4H PRN #30 tab PRN Reason: Nausea Discharge Medication List Ondansetron [Zofran] 4 mg PO Q4H PRN #30 tab 09/17/21 [Rx] HYDROcodone/APAP 5-325MG [[place] 5-325] 1 each PO Q6HR PRN #12 tab 12/05/21 [Rx] Pantoprazole Sodium [Protonix] 40 mg PO DAILY #30 tab 12/05/21 [Rx] metroNIDAZOLE [Flagyl] 500 mg PO TID #15 tab 12/05/21 [Rx] Follow up Appointment(s)/Referral(s): Tod Willett MD [Primary Care Provider] - 1-2 days Discharge Disposition: HOME SELF-CARE
[2021-12-05 11:46] LABS: Basophils # (A) 0.06 X 10*3/uL (0.00-0.10); Basophils % (A) 0.8 %; Eosinophils # (A) 0.09 X 10*3/uL (0.04-0.35); Eosinophils % (A) 1.2 %; HGB 12.9 g/dL (12.0-15.0); Immature Grans, Automated 0.3 %; Lymphocytes # (A) 2.43 X 10*3/uL (0.90-5.00); Lymphocytes % (A) 32.6 %; MCH 28.7 pg (27.0-32.0); MCHC 33.1 g/dL (32.0-37.0); MCV 86.7 fL (80.0-97.0); Mean Platelet Volume 10.8 fL (9.5-12.2); Monocytes # (A) 0.47 X 10*3/uL (0.20-1.00); Monocytes % (A) 6.3 %; NRBC Per 100 WBC 0 /100 WBCS (0.0-0.0); Neutrophils # (A) 4.38 X 10*3/uL (1.80-7.70); Neutrophils % (A) 58.8 %; Platelet Count 301 X 10*3/uL (140-440); RDW 12.3 % (11.5-14.5); WBC 7.45 X 10*3/uL (4.50-10.00)
[2021-12-05 12:03] LABS: African American GFR (CKD) 112.3 (60.0-200.0); Albumin 3.7 g/dL (3.8-4.9); Albumin/Globulin Ratio 1.68 (1.60-3.17); Anion Gap 11.3 mmol/L (10.00-18.00); BUN/Creat Ratio 9.25 Ratio (12.00-20.00); Blood Urea Nitrogen 7.4 mg/dL (9.0-27.0); Calcium 8.7 mg/dL (8.7-10.3); Carbon Dioxide 20.7 mmol/L (20.0-27.5); Globulin 2.2 g/dL (1.6-3.3); Non-African American GFR(CKD) 96.9 (60.0-200.0); Potassium 3.8 mmol/L (3.5-5.5); Total Bilirubin 0.5 mg/dL (0.30-1.20); Total Protein 5.9 g/dL (6.2-8.2)
[2021-12-05 12:52] VITALS: BP 109/65; PULSE 57; RESP 15
--- NOTE | 2021-12-05 14:17 | P.PN ---
Subjective Progress Note Date: 12/05/21 CHIEF COMPLAINT: Abdominal pain and pancreatitis HISTORY OF PRESENT ILLNESS: The patient is a 31 year old female was admitted for epigastric abdominal pain and elevated lipase and pancreatitis. She reports her abdominal pain is basically resolved. She confirms family history of gallbladder disease in her mother. Separately she had a past MRCP confirming gallbladder sludge in the setting of negative ultrasound. REVIEW OF ORGAN SYSTEMS: CONSTITUTIONAL: No fevers or chills. Obesity, BMI 33.2. CARDIOVASCULAR: Denies any chest pain, palpitations, or recent heart attacks. ALLERGY/IMMUNOLOGY: No immunoglobulin therapy. No immune deficiencies. History of MRSA PHYSICAL EXAM: VITALS: Reviewed CONSTITUTIONAL: Well developed and in no acute distress. EYES: Conjuctivae without sclera icterus. Extraocular movements grossly intact. HEAD, EARS, NOSE, THROAT: Moist buccal mucosa. Head is atraumatic, normocephalic. Hears conversational speech. No nasal drainage. RESPIRATORY: Non-labored respirations and equal bilateral excursions. No gross wheezes. CARDIOVASCULAR: Palpable 2+ radial pulses. ABDOMEN: Nontender MUSCULOSKELETAL: No clubbing cyanosis SKIN: Warm and well perfused with good skin turgor. NEUROLOGIC: Cranial nerves II through XII grossly intact. No focal or lateralizing signs. PSYCH: Appropriate affect. Alert and oriented to person, place and time. Displays appropriate insight. CLINCAL LABS: Reviewed. WBC down 14,000-10,000, now normal. ASSESSMENT: 1. Epigastric abdominal pain 2. Enterocolitis 3. Pancreatitis 4. Gallbladder sludge PLAN: 1. Agreeable with discharge however do recommend follow-up as outpatient due to recurrent abdominal pain in the setting of gallbladder sludge and pancreatitis Objective - Vital Signs Vital signs: Vital Signs Temp 98.2 F 12/05/21 12:51 Pulse 57 L 12/05/21 12:51 Resp 15 12/05/21 12:51 BP 109/65 12/05/21 12:51 Pulse Ox 99 12/05/21 12:51 FiO2 Intake & Output 12/04/21 12/05/21 12/05/21 18:59 06:59 18:59 Intake Total 358 Balance 358 Intake: Oral 358 Other: Voiding Method Toilet Toilet # Voids 1 1 # Bowel Movements 1 - Labs CBC & Chem 7: 12/05/21 06:53 12/05/21 06:53 Labs: Abnormal Lab Results - Last 24 Hours (Table) 12/03/21 12/04/21 12/05/21 Range/Units 14:13 08:20 06:53 BUN 7.4 L (9.0-27.0) mg/dL BUN/Creatinine Ratio 9.25 L (12.00-20.00) Ratio Total Protein 5.9 L (6.2-8.2) g/dL Albumin 3.7 L (3.8-4.9) g/dL Cholesterol 242.00 H (0.00-200.00) mg/dL LDL Cholesterol, Calc 151.5 H (0.0-131.0) mg/dL HDL Cholesterol 67.50 H (40.00-60.00) mg/dL Stool Lactoferrin POSITIVE A (NEGATIVE) Microbiology - Last 24 Hours (Table) 12/03/21 16:33 Blood Culture - Preliminary Blood No Growth after 24 hours 12/03/21 16:34 Blood Culture - Preliminary Blood No Growth after 24 hours 12/04/21 08:20 Stool Culture - Preliminary Stool
[2021-12-06 12:59] LABS: Hepatitis A Antibody IgM Nonreactive (Nonreactive); Hepatitis B Core IgM Nonreactive (Nonreactive); Hepatitis C IgG Antibody Nonreactive (Nonreactive)
[2021-12-06 15:56] LABS: Hepatitis B Surface Antigen Nonreactive (Nonreactive)
== END 2021-12-05 16:15 | disposition home or self-care (01) ==
LOC: EC 10:15 → 6NMEDSUR 13:13 → OBSVTOIN 13:20 → INTOOBSV 13:20 → 5NMEDONC 22:39 → UNDODISOB 12-05 16:15
PROVIDERS: ADMIT Hospitalist; ATTEND Hospitalist
DX: K52.9 Noninfective gastroenteritis and colitis, unspecified (principal); K85.90 Acute pancreatitis without necrosis or infection, unspecified; K86.1 Other chronic pancreatitis; K82.4 Cholesterolosis of gallbladder; K86.89 Other specified diseases of pancreas; E66.9 Obesity, unspecified; Z68.33 Body mass index [BMI] 33.0-33.9, adult; Z91.018 Allergy to other foods; Z86.14 Personal history of Methicillin resistant Staphylococcus aureus infection; Z80.0 Family history of malignant neoplasm of digestive organs; Z83.79 Family history of other diseases of the digestive system
CPT/HCPCS: 96376 ×3; 96361; 96366 ×3; 96365; 96375; 99285; 36415; 80061; 80053 ×3; 80074; 85652; 82150; 83605; 83690 ×3; 85025 ×3; 86140; 81001; 81025; 87040; 87324; 87045; 83630; 87046; 76705; 71260; 74177; G0378 ×4; J2405 ×2; C9113 ×3; J1170; Q9967

== ENCOUNTER → 2022-03-21 | Outpatient (CLI) | payer BC ==
--- NOTE | 2022-03-21 07:46 | US ---
EXAMINATION TYPE: US abdomen limited DATE OF EXAM: 03/21/2022 COMPARISON: US, CT & MRI CLINICAL HISTORY: [id number] CHOLESTEROLOSIS OF GALLBLADDER. F/U GB polyp, pt has no complaints at this tomy e TECHNIQUE: Multiple sonographic images of the right upper quadrant are obtained. FINDINGS: EXAM MEASUREMENTS: Liver Length: 16.1 cm Gallbladder Wall: 0.2 cm CBD: 0.4 cm Right Kidney: 9.8 x 4.1 x 4.7 cm STUDIO OPERATOR NOTES: Pancreas: wnl Liver: wnl Gallbladder: Probable small polyp posterior wall= 0.3 cm previously measuring up to 6 mm. Evidence for sonographic Todd's sign: No CBD: wnl Right Kidney: wnl IMPRESSION: Probable small gallbladder polyp measuring up to 4 mm. This may be slightly smaller comparing to 09/16 given differences in measuring technique.
[2022-03-21 10:27] LABS: Chol/HDL Ratio 2.89 Ratio; GGT 10 U/L (0-38); LDL Cholesterol,Calculated 116.2 mg/dL (0.0-131.0)
[2022-03-21 11:02] LABS: ALT 29 U/L (8-44); AST 26 U/L (13-35); Albumin 4.5 g/dL (3.8-4.9); Albumin/Globulin Ratio 1.96 (1.60-3.17); Alkaline Phosphatase 52 U/L (41-126); Bilirubin, Conjugated <0.20 mg/dL (0.20-0.40); C Reactive Protein, High Sens <0.150 mg/L (0.000-3.000); Globulin 2.3 g/dL (1.6-3.3); Total Protein 6.8 g/dL (6.2-8.2)
== END | disposition home or self-care (01) ==
LOC: RADUSWWP 06:55
PROVIDERS: ATTEND Family Medicine
DX: K82.4 Cholesterolosis of gallbladder (principal)
CPT/HCPCS: 76705; 80061; 80076; 82977; 86141

== ENCOUNTER → 2022-11-09 | Outpatient (CLI) | payer BC ==
--- NOTE | 2022-11-10 00:43 | MR ---
EXAMINATION TYPE: MR cervical spine wo con DATE OF EXAM: 11/09/2022 COMPARISON: None HISTORY: Neck pain that radiates into Rt arm/hand, headaches, weakness bilat arms CONTRAST: Performed utilizing 0 mL intravenous gadolinium contrast. TECHNIQUE: Multiplanar multiecho imaging on a 3.0 Roxanne magnet is performed through the cervical spin e. FINDINGS: The craniovertebral junction is normal. Vertebral body alignment is normal. C7-T1: No focal disc herniation or significant disc bulge is evident. No spinal canal stenosis or n eural foraminal stenosis is present. C6-7: Minimal disc bulge is anterior thecal sac contact. No cord contact is evident. No spinal canal stenosis is present. Disc desiccation is present.. C5-6: Broad-based central disc bulge is present with mild anterior thecal sac compression. This comes in close approximation with the spinal cord. No cord deformity is evident. No spinal canal stenosis is present.. C4-5: There is a large central subligamentous disc herniation with moderate anterior thecal sac compr ession. Disc comes in close approximation with the spinal cord. No AP spinal canal stenosis present. No signal abnormality within the cord is evident. Disc desiccation is present.. C3-4: No focal disc herniation or significant disc bulge is evident. No spinal canal stenosis or joão ral foraminal stenosis is present. C2-3: No focal disc herniation or significant disc bulge is evident. No spinal canal stenosis or joão ral foraminal stenosis is present. IMPRESSIONS: 1. Subligamentous disc herniation C4-5 in close approximation with the spinal cord. No AP spinal crystal l stenosis is present. 2. Broad-based disc bulge seen at C5-6 without spinal canal stenosis 3. Minimal disc bulge C6-7 with anterior thecal sac contact.
== END | disposition home or self-care (01) ==
LOC: RADMRIMAIN 21:15
PROVIDERS: ATTEND Physician Assistant
DX: M50.121 Cervical disc disorder at C4-C5 level with radiculopathy (principal)
CPT/HCPCS: 72141

== ENCOUNTER 2023-10-19 12:10 | Emergency (ER) | payer BC ==
[2023-10-19 12:26] VITALS: RESP 18
--- NOTE | 2023-10-19 12:29 | ED ---
Neck Injury/Pain HPI - General Chief Complaint: Neck Pain/Injury Stated Complaint: L armpit pain Time Seen by Provider: 10/19/23 12:29 Source: patient, RN notes reviewed Mode of arrival: ambulatory Limitations: no limitations - History of Present Illness Initial Comments: This is a 33-year-old female with a chief complaint of left shoulder and scapular pain that radiates into her axilla over the last 5 days. She denies obvious injury or trauma to the arm. She denies paresthesias, weakness. She describes this pain as a burning sensation that is worse with overhead movement and on palpation. She denies shortness of breath, chest pain, palpitations, dizziness, fatigue. She denies abdominal pain, nausea, vomiting, diarrhea, dysuria. Patient has a history of of degenerative disc disease of her cervical neck. - Related Data Previous Rx's Medication Instructions Recorded Ondansetron [Zofran] 4 mg PO Q4H PRN #30 tab 09/17/21 HYDROcodone/APAP 5-325MG [[place] 1 each PO Q6HR PRN #12 tab 12/05/21 5-325] Pantoprazole Sodium [Protonix] 40 mg PO DAILY #30 tab 12/05/21 metroNIDAZOLE [Flagyl] 500 mg PO TID #15 tab 12/05/21 Allergies Allergy/AdvReac Type Severity Reaction Status Date / Time hazelnut Allergy Unknown Verified 10/19/23 12:26 Review of Systems ROS Statement: Those systems with pertinent positive or pertinent negative responses have been documented in the HPI. ROS Other: All systems not noted in ROS Statement are negative. Past Medical History Past Medical History: No Reported History History of Any Multi-Drug Resistant Organisms: MRSA Date of last positivie culture/infection: 02/26/21 MDRO Source:: Left 2nd Toe Past Surgical History: No Surgical Hx Reported Past Anesthesia/Blood Transfusion Reactions: No Reported Reaction Past Psychological History: No Psychological Hx Reported Smoking Status: Never smoker Past Alcohol Use History: None Reported Past Drug Use History: None Reported - Past Family History family \ Family Medical History: No Reported History General Exam Limitations: no limitations General appearance: alert, in no apparent distress Head exam: Present: atraumatic, normocephalic, normal inspection Eye exam: Present: normal appearance, PERRL, EOMI. Absent: scleral icterus, conjunctival injection, periorbital swelling ENT exam: Present: normal exam, mucous membranes moist Neck exam: Present: normal inspection, tenderness (posterior cervical with ROM), full ROM Respiratory exam: Present: normal lung sounds bilaterally. Absent: respiratory distress, wheezes, rales, rhonchi, stridor Cardiovascular Exam: Present: regular rate, normal rhythm, normal heart sounds. Absent: systolic murmur, diastolic murmur, rubs, gallop, clicks GI/Abdominal exam: Present: soft, normal bowel sounds. Absent: distended, tenderness, guarding, rebound, rigid Left Shoulder Exam: Present: normal inspection, full ROM (pain with active ROM), tenderness (scapular). Absent: swelling, abrasion Upper Arm exam: Present: tenderness (axillary) Back exam: Present: normal inspection, other (cervical neck tenderness with palpation) Neurological exam: Present: alert, oriented X3, CN II-XII intact Psychiatric exam: Present: normal affect, normal mood Skin exam: Present: warm, dry, intact, normal color. Absent: rash Course Vital Signs 10/19/23 10/19/23 12:24 14:07 Temperature 97.7 F 98.1 F Pulse Rate 74 76 Respiratory 18 18 Rate Blood Pressure 145/78 136/78 O2 Sat by Pulse 100 97 Oximetry Medical Decision Making - Medical Decision Making Was pt. sent in by a medical professional or institution ([facility], [facility], urgent care, hospital, or [place] health care facility...) When possible be specific @ -No Did you speak to anyone other than the patient for history (EMS, parent, family, police, friend...)? What history was obtained from this source @ -No Did you review nursing and triage notes (agree or disagree)? Why? @ -I reviewed and agree with nursing and triage notes Were old charts reviewed (outside hosp., previous admission, EMS record, old EKG, old radiological studies, urgent care reports/EKG's, [place] health care facility records)? Report findings @ -No old charts were reviewed Differential Diagnosis (chest pain, altered mental status, abdominal pain women, abdominal pain men, vaginal bleeding, weakness, fever, dyspnea, syncope, headache, dizziness, GI bleed, back pain, seizure, CVA, palpatations, mental health, musculoskeletal)? @ -Differential Musculoskeletal Muscular strain, contusion, ligament sprain, fracture, arthritis, septic arthritis, bursitis, cellulitis, muscle spasm, nerve compression, DVT, arterial occlusion, herpes zoster, electrolyte abnormality, tumor.... This is not meant to be in all inclusive list EKG interpreted by me (3pts min.). @ -None X-rays interpreted by me (1pt min.). @ -Chest x-ray, left shoulder and left scapular x-ray no acute osseous abnormalities and no acute cardiopulmonary process. CT interpreted by me (1pt min.). @ -None done U/S interpreted by me (1pt. min.). @ -None done What testing was considered but not performed or refused? (CT, X-rays, U/S, labs)? Why? @ -None What meds were considered but not given or refused? Why? @ -None Did you discuss the management of the patient with other professionals (professionals i.e. , PA, [facility], lab, RT, psych nurse, social media job titles, functional analyst, teacher, signals officer, behavioral health case manager)? Give summary @ -No Was smoking cessation discussed for >3mins.? @ -No Was critical care preformed (if so, how long)? @ -No Were there social determinants of health that impacted care today? How? (Homelessness, low income, unemployed, alcoholism, drug addiction, transportation, low edu. Level, literacy, decrease access to med. care, assisted, rehab)? @ -No Was there de-escalation of care discussed even if they declined (Discuss DNR or withdrawal of care, Hospice)? DNR status @ -No What co-morbidities impacted this encounter? (DM, HTN, Smoking, COPD, CAD, Cancer, CVA, ARF, Chemo, Hep., AIDS, mental health diagnosis, sleep apnea, morbid obesity)? @ -None Was patient admitted / discharged? Hospital course, mention meds given and route, prescriptions, significant lab abnormalities, going to OR and other pertinent info. @ -Discharge. 33-year-old female with complaint of left shoulder and scapular pain that radiates into her left axilla over the past few days. On examination patient's pain is reproducible on palpation in addition with range of motion. She denies very systemic symptoms at this time minimal concern for intra- abdominal or intrathoracic process with symptoms most likely related to musculoskeletal in nature. X-rays nonconcerning for acute cause. Patient declines oral medications for pain relief. Recommend that patient uses lidocaine patches on affected area for pain relief. Patient does have noted generative disc disease of the cervical neck therefore imaging of the neck was deferred at this time. Patient states that she will follow-up with her neck specialist for further evaluation. Patient is stable for discharge. Case discussed with Dr. Staley Undiagnosed new problem with uncertain prognosis? @ -No Drug Therapy requiring intensive monitoring for toxicity (Heparin, Nitro, Insulin, Cardizem)? @ -No Were any procedures done? @ -No Diagnosis/symptom? @ -[left shoulder and back pain, chronic neck pain Acute, or Chronic, or Acute on Chronic? @ -acute Uncomplicated (without systemic symptoms) or Complicated (systemic symptoms)? @ -uncomplicated Side effects of treatment? @ -No Exacerbation, Progression, or Severe Exacerbation? @ -No Poses a threat to life or bodily function? How? (Chest pain, [place], [place], pneumonia, PE, COPD, DKA, ARF, appy, cholecystitis, CVA, Diverticulitis, Homicidal, Suicidal, threat to staff... and all critical care pts) @ -No Disposition Clinical Impression: Pain of left scapula, Pain of left shoulder region, Chronic neck pain Narrative: Please return to the Emergency Department if symptoms worsen or any other concerns. Disposition: HOME SELF-CARE Condition: Good Instructions (If sedation given, give patient instructions): Shoulder Pain (ED), Chronic Neck Pain (DC) Is patient prescribed a controlled substance at d/c from ED?: No Referrals: Tod Willett MD [Primary Care Provider] - 1-2 days Time of Disposition: 13:40
--- NOTE | 2023-10-19 13:20 | XR ---
EXAMINATION TYPE: XR chest 2V DATE OF EXAM: 10/19/2023 COMPARISON: None INDICATION: Pain left upper chest TECHNIQUE: Frontal and lateral views of the chest are obtained. FINDINGS: The heart size is normal. The pulmonary vasculature is normal. The lungs are clear. No pneumothorax is evident. IMPRESSION: 1. No acute pulmonary process.
--- NOTE | 2023-10-19 13:21 | XR ---
EXAMINATION TYPE: XR shoulder limited LT DATE OF EXAM: 10/19/2023 COMPARISON: 11-09 HISTORY: Pain TECHNIQUE: Shoulder examined in 2 projections. FINDINGS: The humeral head articulates with the glenoid. The acromio-clavicular junction is normal. No acute fractures or dislocations are evident. A follow up study can be performed 7-10 days from acute trauma for continued pain. MRI can be perfor med if soft tissue evaluation would be of benefit. IMPRESSION: 1. No acute osseous shoulder abnormality.
--- NOTE | 2023-10-19 13:22 | XR ---
EXAMINATION TYPE: XR scapula LT DATE OF EXAM: 10/19/2023 COMPARISON: None HISTORY: Pain TECHNIQUE: Two-view scapula FINDINGS: The cerebellar head articulates with the glenoid. Acromioclavicular junction appears normal . Coracoid process. No acute fracture or dislocation is evident. IMPRESSION: 1. Normal 2 view scapula
[2023-10-19 14:35] VITALS: BP 136/78; PULSE 76; TEMP 98.1
== END 2023-10-19 14:09 | disposition home or self-care (01) ==
LOC: EC 12:10
DX: G89.29 Other chronic pain (principal); M25.512 Pain in left shoulder; Z88.8 Allergy status to other drugs, medicaments and biological substances
CPT/HCPCS: 71046; 99283

== ENCOUNTER 2024-03-08 06:51 | Day surgery (SDC) | payer BC ==
[2024-03-08] MEDS: LACTATED RINGERS 1,000 ML IV SCH (07:31)
[2024-03-08 07:35] VITALS: TEMP 97.7
[2024-03-08] MEDS ORDERED: PROPOFOL 10 MG/ML 20 ML VIAL IV ONE (07:38)
[2024-03-08] MEDS ORDERED: LIDOCAINE 1% INJ 10MG/ML (20 ML MDV) ONE (07:38)
[2024-03-08] MEDS: LACTATED RINGERS 1,000 ML IV ONE (07:39)
--- NOTE | 2024-03-08 07:57 | P.PCN ---
Date of Procedure: 03/08/24 Procedure(s) Performed: Brief history: Patient is a pleasant 33-year-old white female scheduled for an elective upper endoscopy as well as colonoscopy as a part of evaluation of intermittent episodes of nausea vomiting epigastric pain and diarrhea for the last 1 year duration. She has these episodes once a month that lasts for a day or 2 and resolved. In between episodes she is asymptomatic. She takes Protonix as needed with some relief. Procedure performed: Esophagogastroduodenoscopy with biopsy Colonoscopy with random biopsies Preoperative diagnosis: Intermittent episodes of nausea vomiting, epigastric pain and diarrhea for the last 1 year duration Anesthesia: MAC Procedure: After informed consent was obtained from the patient was brought into the endoscopy unit and IV sedation was administered by anesthesia under continuous monitoring. Initially upper endoscopy was done. The Olympus GF 160 video endoscope was inserted inserted into the mouth and esophagus intubated without any difficulty and was gradually advanced into the stomach and duodenum and carefully examined. The bulb and second part of the duodenum appeared normal. Biopsies were done from the duodenum to evaluate for celiac disease. The scope was then withdrawn into the stomach adequately insufflated with air and upon careful examination the antrum had mottling of the mucosa consistent with gastritis and biopsies were done from this area. Mucosa body, cardia and fundus appeared normal. The scope was then withdrawn into the esophagus. The GE junction was located at 40 cm to the incisors. It appeared regular with no erythema erosions or ulcerations. Rest of the esophagus appeared normal. Patient tolerated the procedure well. At this time the patient continued to remain sedation. Initial digital rectal examination was normal. Olympus CF 160 video colonoscope was then inserted into the rectum and gradually advanced to the cecum without any difficulty. Careful examination was performed as the scope was gradually being withdrawn. The prep was excellent. Terminal ileum was intubated in 20 cm visualized that appeared normal. The cecum, ascending colon, transverse colon, descending colon, sigmoid colon and rectum appeared normal. Biopsies were done from the ascending and descending colon to rule out microscopic/collagenous colitis. Retroflexion was performed in the rectum and no lesions were noted. Patient tolerated the procedure well. Impression: 1. Upper endoscopy revealed mild antral gastritis but no evidence of esophagitis or peptic ulcer disease 2. Colonoscopy was within normal limits with no evidence of colorectal neoplasia Recommendations: Findings of this examination were discussed with the patient as well as her family. She was advised to follow-up with the biopsy results. Continue with Protonix as needed and follow antireflux measures. Recommend to use ov [id number] Imodium as needed. If she has persistent symptoms she was advised to follow-up in the office for further management.
[2024-03-08 08:34] VITALS: BP 142/63; PULSE 67; RESP 20
== END 2024-03-08 08:30 | disposition home or self-care (01) ==
LOC: ORWHC2ENDO 06:51
PROVIDERS: ATTEND Internal Medicine Gastroenterology
DX: K29.50 Unspecified chronic gastritis without bleeding (principal); K29.80 Duodenitis without bleeding; D72.820 Lymphocytosis (symptomatic); K21.9 Gastro-esophageal reflux disease without esophagitis; Z79.899 Other long term (current) drug therapy
CPT/HCPCS: 43239; 45380; 81025; 88305

== ENCOUNTER 2024-06-04 19:10 | Emergency (ER) | payer BC ==
[2024-06-04 19:21] VITALS: RESP 18
--- NOTE | 2024-06-04 20:11 | ED ---
Abdominal Pain HPI - General Chief Complaint: Abdominal Pain Stated Complaint: abd pain Time Seen by Provider: 06/04/24 20:11 Source: patient Mode of arrival: ambulatory Limitations: no limitations - History of Present Illness Initial Comments: 33-year-old female presenting with chief complaint of abdominal pain. She is having sharp epigastric pain. She admits to nausea vomiting and diarrhea. Symptoms have been ongoing since earlier today. No dysuria or hematuria. No fevers or chills. No cough, congestion, sore throat. No chest pain or difficulty breathing. - Related Data Home Medications Medication Instructions Recorded Confirmed Pantoprazole Sodium [Protonix] 40 mg PO DAILY PRN 03/06/24 03/06/24 Previous Rx's Medication Instructions Recorded Ondansetron [Zofran] 4 mg PO Q4H PRN #30 tab 09/17/21 Ondansetron Odt [Zofran Odt] 4 mg PO Q8HR PRN #20 tab 06/04/24 Allergies Allergy/AdvReac Type Severity Reaction Status Date / Time hazelnut Allergy Unknown Verified 06/04/24 19:22 Review of Systems ROS Statement: Those systems with pertinent positive or pertinent negative responses have been documented in the HPI. ROS Other: All systems not noted in ROS Statement are negative. Past Medical History Past Medical History: GERD/Reflux History of Any Multi-Drug Resistant Organisms: MRSA Date of last positivie culture/infection: 02/26/21 MDRO Source:: Left 2nd Toe Past Surgical History: Tonsillectomy Past Anesthesia/Blood Transfusion Reactions: No Reported Reaction, Family History of Problems w/ Anesthesia Additional Past Anesthesia/Blood Transfusion Reaction / Comment(s): no hx. blood transfusion; mom PONV Past Psychological History: No Psychological Hx Reported Smoking Status: Never smoker Past Alcohol Use History: None Reported Past Drug Use History: None Reported - Past Family History family \ Family Medical History: No Reported History General Exam - General Exam Comments Initial Comments: Visual Physical Exam Vital signs reviewed General: Well-appearing, nontoxic, no acute distress. Head: Normocephalic, atraumatic Eyes: PERRLA, EOMI ENT: Airway patent Chest: Nonlabored breathing Skin: No visual rash, normal skin tone Neuro: Alert and oriented 3 Musculoskeletal: No gross abnormalities Limitations: no limitations General appearance: alert, in no apparent distress Head exam: Present: atraumatic, normocephalic, normal inspection Eye exam: Present: normal appearance, EOMI Neck exam: Present: normal inspection. Absent: meningismus Respiratory exam: Present: normal lung sounds bilaterally. Absent: respiratory distress, wheezes, rales, rhonchi, stridor Cardiovascular Exam: Present: regular rate, normal rhythm, normal heart sounds. Absent: systolic murmur, diastolic murmur, rubs, gallop, clicks GI/Abdominal exam: Present: soft. Absent: distended, tenderness, guarding, rebound, rigid Neurological exam: Present: alert, oriented X3 Psychiatric exam: Present: normal affect, normal mood Skin exam: Present: warm, dry Course Vital Signs 06/04/24 06/05/24 19:17 00:05 Temperature 97.7 F 97.8 F Pulse Rate 99 77 Respiratory 18 18 Rate Blood Pressure 177/96 158/86 O2 Sat by Pulse 100 98 Oximetry Medical Decision Making - Medical Decision Making I performed the quick note portion of this visit, electronically signed Evelyne Paulino PA-C Was pt. sent in by a medical professional or institution ([facility], [employer], urgent care, hospital, or alf...) When possible be specific @ -No Did you speak to anyone other than the patient for history (EMS, parent, family, police, friend...)? What history was obtained from this source @ -No Did you review nursing and triage notes (agree or disagree)? Why? @ -I reviewed and agree with nursing and triage notes Were old charts reviewed (outside hosp., previous admission, EMS record, old EKG, old radiological studies, urgent care reports/EKG's, alf records)? Report findings @ -No old charts were reviewed Differential Diagnosis (chest pain, altered mental status, abdominal pain women, abdominal pain men, vaginal bleeding, weakness, fever, dyspnea, syncope, headache, dizziness, GI bleed, back pain, seizure, CVA, palpatations, mental he alth, musculoskeletal)? @ -MDM Differential Abdominal Pain Women: Appendicitis, Cholecystitis, diverticulosis, ischemic bowel, pancreatitis, hepatitis, UTI, gastroenteritis, AAA, incarcerated hernia, bowel obstruction, constipation, inflammatory bowel, hepatitis, peptic ulcer disease, splenic infa rction, perforated viscus, vulvitis, ovarian torsion, PID, kidney stone, placenta abruption... This is not meant to be an all-inclusive list EKG interpreted by me (3pts min.). @ -As above X-rays interpreted by me (1pt min.). @ -None done CT interpreted by me (1pt min.). @ -None done U/S interpreted by me (1pt. min.). @ -Ultrasound shows nonspecific gallbladder wall thickening/edema which may be related to underdistention. No sonographic evidence of cholelithiasis. Negative Todd sign. What testing was considered but not performed or refused? (CT, X-rays, U/S, labs)? Why? @ -None What meds were considered but not given or refused? Why? @ -None Did you discuss the management of the patient with other professionals (professionals i.e. , PA, [employer]DER, lab, RT, psych nurse, psychiatric social worker, narcotics investigator, teacher, aoc plans intelligence officer chief, case maker)? Give summary @ -No Was smoking cessation discussed for >3mins.? @ -No Was critical care preformed (if so, how long)? @ -No Were there social determinants of health that impacted care today? How? (Homelessness, low income, unemployed, alcoholism, drug addiction, transportation, low edu. Level, literacy, decrease access to med. care, half-way, rehab)? @ -No Was there de-escalation of care discussed even if they declined (Discuss DNR or withdrawal of care, Hospice)? DNR status @ -No What co-morbidities impacted this encounter? (DM, HTN, Smoking, COPD, CAD, Cancer, CVA, ARF, Chemo, Hep., AIDS, mental health diagnosis, sleep apnea, morbid obesity)? @ -None Was patient admitted / discharged? Hospital course, mention meds given and route, prescriptions, significant lab abnormalities, going to OR and other pertinent info. @ -33-year-old female presenting with chief complaint of nausea vomiting abdominal pain and diarrhea. Workup was initiated by triage. No leukocytosis or anemia. Lipase is WNL. Urine shows no infectious process or bleeding and negative hCG. Ultrasound shows some nonspecific gallbladder wall thickening without evidence for any other acute process. On reassessment patient reports significant improvement in her symptoms, she received Zofran, Toradol, and fluids. She would like to be discharged home. Educated on today's findings. Follow-up with PCP. Report back to ER with any new or worsening symptoms. Discussed return parameters and answered all questions. Patient conveyed verbal understanding and agreed to the plan. I discussed this case in detail with my attending Dr. Myles Undiagnosed new problem with uncertain prognosis? @ -No Drug Therapy requiring intensive monitoring for toxicity (Heparin, Nitro, Insulin, Cardizem)? @ -No Were any procedures done? @ -No Diagnosis/symptom? @ -Gastroenteritis Acute, or Chronic, or Acute on Chronic? @ -Acute Uncomplicated (without systemic symptoms) or Complicated (systemic symptoms)? @ -Uncomplicated Side effects of treatment? @ -No Exacerbation, Progression, or Severe Exacerbation? @ -No Poses a threat to life or bodily function? How? (Chest pain, USA, MD, pneumonia, PE, COPD, DKA, ARF, appy, cholecystitis, CVA, Diverticulitis, Homicidal, Suicidal, threat to staff... and all critical care pts) @ -Unlikely - Lab Data Result diagrams: 06/04/24 19:28 06/04/24 19:28 Lab Results 06/04/24 06/04/24 06/04/24 Range/Units 19:28 19:28 19:28 WBC 10.1 (3.8-10.6) k/uL RBC 4.93 (3.80-5.40) m/uL Hgb 13.9 (11.4-16.0) gm/dL Hct 42.1 (34.0-46.0) % MCV 85.4 (80.0-100.0) fL MCH 28.1 (25.0-35.0) pg MCHC 32.9 (31.0-37.0) g/dL RDW 12.5 (11.5-15.5) % Plt Count 336 (150-450) k/uL MPV 7.1 Neutrophils % 60 % Lymphocytes % 30 % Monocytes % 6 % Eosinophils % 2 % Basophils % 1 % Neutrophils # 6.1 (1.3-7.7) k/uL Lymphocytes # 3.0 (1.0-4.8) k/uL Monocytes # 0.6 (0-1.0) k/uL Eosinophils # 0.2 (0-0.7) k/uL Basophils # 0.1 (0-0.2) k/uL Sodium 136 L (137-145) mmol/L Potassium 3.8 (3.5-5.1) mmol/L Chloride 108 H (98-107) mmol/L Carbon Dioxide 20 L (22-30) mmol/L Anion Gap 8 mmol/L BUN 15 (7-17) mg/dL Creatinine 0.78 (0.52-1.04) mg/dL Est GFR (CKD-EPI)AfAm >90 (>60 ml/min/1.73 sqM) Est GFR (CKD-EPI)NonAf >90 (>60 ml/min/1.73 sqM) Glucose 106 H (74-99) mg/dL Plasma Lactic Acid [place] 1.4 (0.7-2.0) mmol/L Calcium 9.6 (8.4-10.2) mg/dL Total Bilirubin 0.4 (0.2-1.3) mg/dL AST 31 (14-36) U/L ALT 25 (4-34) U/L Alkaline Phosphatase 61 (38-126) U/L Total Protein 7.4 (6.3-8.2) g/dL Albumin 4.7 (3.5-5.0) g/dL Lipase (23-300) U/L Urine Color Urine Appearance (Clear) Urine pH (5.0-8.0) Ur Specific [place] (1.001-1.035) Urine Protein (Negative) Urine Glucose (UA) (Negative) Urine Ketones (Negative) Urine Blood (Negative) Urine Nitrite (Negative) Urine Bilirubin (Negative) Urine Urobilinogen (<2.0) mg/dL Ur Leukocyte Esterase (Negative) Urine RBC (0-5) /hpf Urine WBC (0-5) /hpf Ur Squamous Epith Cells (0-4) /hpf Urine Mucus (None) /hpf Urine HCG, Qual (Not Detectd) 06/04/24 06/04/24 06/04/24 Range/Units 20:55 22:44 22:44 WBC (3.8-10.6) k/uL RBC (3.80-5.40) m/uL Hgb (11.4-16.0) gm/dL Hct (34.0-46.0) % MCV (80.0-100.0) fL MCH (25.0-35.0) pg MCHC (31.0-37.0) g/dL RDW (11.5-15.5) % Plt Count (150-450) k/uL MPV Neutrophils % % Lymphocytes % % Monocytes % % Eosinophils % % Basophils % % Neutrophils # (1.3-7.7) k/uL Lymphocytes # (1.0-4.8) k/uL Monocytes # (0-1.0) k/uL Eosinophils # (0-0.7) k/uL Basophils # (0-0.2) k/uL Sodium (137-145) mmol/L Potassium (3.5-5.1) mmol/L Chloride (98-107) mmol/L Carbon Dioxide (22-30) mmol/L Anion Gap mmol/L BUN (7-17) mg/dL Creatinine (0.52-1.04) mg/dL Est GFR (CKD-EPI)AfAm (>60 ml/min/1.73 sqM) Est GFR (CKD-EPI)NonAf (>60 ml/min/1.73 sqM) Glucose (74-99) mg/dL Plasma Lactic Acid [place] (0.7-2.0) mmol/L Calcium (8.4-10.2) mg/dL Total Bilirubin (0.2-1.3) mg/dL AST (14-36) U/L ALT (4-34) U/L Alkaline Phosphatase (38-126) U/L Total Protein (6.3-8.2) g/dL Albumin (3.5-5.0) g/dL Lipase 108 (23-300) U/L Urine Color Yellow Urine Appearance Clear (Clear) Urine pH 5.5 (5.0-8.0) Ur Specific [place] 1.037 H (1.001-1.035) Urine Protein Trace H (Negative) Urine Glucose (UA) Negative (Negative) Urine Ketones Negative (Negative) Urine Blood Trace H (Negative) Urine Nitrite Negative (Negative) Urine Bilirubin Negative (Negative) Urine Urobilinogen <2.0 (<2.0) mg/dL Ur Leukocyte Esterase Negative (Negative) Urine RBC 1 (0-5) /hpf Urine WBC 1 (0-5) /hpf Ur Squamous Epith Cells 1 (0-4) /hpf Urine Mucus Few H (None) /hpf Urine HCG, Qual Not Detected (Not Detectd) Disposition Clinical Impression: Gastroenteritis Disposition: HOME SELF-CARE Condition: Good Instructions (If sedation given, give patient instructions): Gastroenteritis (ED) Additional Instructions: Follow-up with your PCP. Report back to ER with any new or worsening symptoms. Take medication as prescribed. Prescriptions: Ondansetron Odt [Zofran Odt] 4 mg PO Q8HR PRN #20 tab PRN Reason: Nausea Is patient prescribed a controlled substance at d/c from ED?: No Referrals: Tod Willett MD [Primary Care Provider] - 1-2 days Time of Disposition: 23:53
[2024-06-04 20:35] LABS: Basophils # (A) 0.1 k/uL (0-0.2); Basophils % (A) 1 %; Eosinophils # (A) 0.2 k/uL (0-0.7); Eosinophils % (A) 2 %; HCT 42.1 % (34.0-46.0); HGB 13.9 gm/dL (11.4-16.0); Lymphocytes % (A) 30 %; MCH 28.1 pg (25.0-35.0); MCHC 32.9 g/dL (31.0-37.0); MCV 85.4 fL (80.0-100.0); Mean Platelet Volume 7.1; Monocytes # (A) 0.6 k/uL (0-1.0); Monocytes % (A) 6 %; Neutrophils # (A) 6.1 k/uL (1.3-7.7); Neutrophils % (A) 60 %; Platelet Count 336 k/uL (150-450); RBC 4.93 m/uL (3.80-5.40); RDW 12.5 % (11.5-15.5); WBC 10.1 k/uL (3.8-10.6)
[2024-06-04 20:51] LABS: ALT 25 U/L (4-34); AST 31 U/L (14-36); African American GFR (CKD) >90 (>60 ml/min/1.73 sqM); Albumin 4.7 g/dL (3.5-5.0); Alkaline Phosphatase 61 U/L (38-126); Anion Gap 8 mmol/L; Blood Urea Nitrogen 15 mg/dL (7-17); Calcium 9.6 mg/dL (8.4-10.2); Carbon Dioxide 20 mmol/L (22-30); Chloride 108 mmol/L (98-107); Glucose 106 mg/dL (74-99); Non-African American GFR(CKD) >90 (>60 ml/min/1.73 sqM); Potassium 3.8 mmol/L (3.5-5.1); Sodium 136 mmol/L (137-145); Total Bilirubin 0.4 mg/dL (0.2-1.3); Total Protein 7.4 g/dL (6.3-8.2)
[2024-06-04] MEDS: KETOROLAC 15 MG/ML 1 ML VIAL IVP STA (21:18)
[2024-06-04] MEDS: ONDANSETRON 4 MG/2 ML VIAL IVP STA (21:19)
[2024-06-04] MEDS: SODIUM CHLORIDE 0.9% 1,000 ML IV ONE (21:21)
--- NOTE | 2024-06-04 22:03 | US ---
EXAMINATION TYPE: US abdomen limited DATE OF EXAM: 06/04/2024 COMPARISON: US 2021 CLINICAL INDICATION: Female, 33 years old with history of epigastric pain; Patient states epigastric pain. N/V TECHNIQUE: Grayscale and color Doppler imaging of the right upper quadrant was performed. FINDINGS: EXAM MEASUREMENTS: Liver Length: 15.4 cm Gallbladder Wall: 0.3 cm CBD: 0.5 cm Right Kidney: 9.3 x 4.1 x 4.8 cm OIL REFINERY PROCESS TECHNICIAN NOTES:Slightly limited due to overlying gas. Patient states ate a few hours ago Pancreas: Not well visualized to shadowing bowel gas. Liver: wnl Gallbladder: Wall thickening/edema, which may be related to underdistention. No sonographic evidence of cholelithiasis. Evidence for sonographic Todd's sign: no CBD: wnl Right Kidney: wnl IMPRESSION: Nonspecific gallbladder wall thickening/edema, which may be related to underdistention. No sonographi c evidence of cholelithiasis. Negative Todd's sign. [facility], , 06/04/2024 10:00 PM
[2024-06-04 23:27] LABS: Appearance,Urine Clear (Clear); Bilirubin,Urine Negative (Negative); Blood,Urine Trace (Negative); Color,Urine Yellow; Glucose,Urine (UA) Negative (Negative); Ketones,Urine Negative (Negative); Leukocyte Esterase,Urine Negative (Negative); Mucus,Urine Few /hpf; Nitrite,Urine Negative (Negative); PH, Urine 5.5 (5.0-8.0); Protein,Urine Trace (Negative); RBC,Urine 1 /hpf (0-5); Specific Gravity,Urine 1.037 (1.001-1.035); Squamous Epithelial Cell,Urine 1 /hpf (0-4); Urobilinogen,Urine <2.0 mg/dL (<2.0); WBC,Urine 1 /hpf (0-5)
[2024-06-05 00:07] VITALS: BP 158/86; PULSE 77; TEMP 97.8
== END 2024-06-05 00:07 | disposition home or self-care (01) ==
LOC: EC 19:10
DX: K52.9 Noninfective gastroenteritis and colitis, unspecified (principal); Z91.018 Allergy to other foods
CPT/HCPCS: 36415; 80053; 83605; 83690; 85025; 81001; 81025; 76705; 99284; 96374; 96375; 96361; J2405; J1885

== ENCOUNTER 2024-09-26 10:50 | Emergency (ER) | payer BC ==
[2024-09-26 11:03] VITALS: TEMP 97.8
--- NOTE | 2024-09-26 11:17 | ED ---
Nausea/Vomiting/Diarrhea HPI - General Chief complaint: Nausea/Vomiting/Diarrhea Stated complaint: vomiting Time Seen by Provider: 09/26/24 11:05 Source: patient, RN notes reviewed Mode of arrival: ambulatory Limitations: no limitations - History of Present Illness Initial comments: This is a 34-year-old female with history of pancreatitis presenting to em ergency department for complaint of epigastric abdominal pain with associated nausea, vomiting and diarrhea over the past few hours. She states that pain started while she was walking to the gym with associated nonbloody bilious emesis and multiple watery stools. She denies fevers, chills, cough, rhinorrhea, congestion, hematochezia, melena, urinary complaints. Denies previous surgical abdominal history. Denies drug or alcohol use. States that she is unaware why she has a history of pancreatitis. Denies previous surgical abdominal history. - Related Data Home Medications Medication Instructions Recorded Confirmed Pantoprazole Sodium [Protonix] 40 mg PO DAILY PRN 03/06/24 03/06/24 Previous Rx's Medication Instructions Recorded Ondansetron [Zofran] 4 mg PO Q4H PRN #30 tab 09/17/21 Ondansetron Odt [Zofran Odt] 4 mg PO Q8HR PRN #20 tab 06/04/24 Allergies Allergy/AdvReac Type Severity Reaction Status Date / Time hazelnut Allergy Unknown Verified 09/26/24 11:03 Review of Systems ROS Statement: Those systems with pertinent positive or pertinent negative responses have been documented in the HPI. ROS Other: All systems not noted in ROS Statement are negative. Past Medical History Past Medical History: GERD/Reflux Additional Past Medical History / Comment(s): pancreatitis History of Any Multi-Drug Resistant Organisms: MRSA Date of last positivie culture/infection: 02/26/21 MDRO Source:: Left 2nd Toe Past Surgical History: Tonsillectomy Past Anesthesia/Blood Transfusion Reactions: No Reported Reaction, Family History of Problems w/ Anesthesia Additional Past Anesthesia/Blood Transfusion Reaction / Comment(s): no hx. blood transfusion; mom PONV Past Psychological History: No Psychological Hx Reported Smoking Status: Never smoker Past Alcohol Use History: None Reported Past Drug Use History: None Reported - Past Family History family \ Family Medical History: No Reported History General Exam Limitations: no limitations General appearance: alert, in no apparent distress Neck exam: Present: normal inspection. Absent: tenderness, meningismus, lymphadenopathy Respiratory exam: Present: normal lung sounds bilaterally. Absent: respiratory distress, wheezes, rales, rhonchi, stridor Cardiovascular Exam: Present: regular rate, normal rhythm, normal heart sounds. Absent: systolic murmur, diastolic murmur, rubs, gallop, clicks GI/Abdominal exam: Present: soft, tenderness (epigastric), normal bowel sounds. Absent: distended, guarding, rebound, rigid Extremities exam: Present: normal inspection, full ROM, normal capillary refill. Absent: tenderness, pedal edema, joint swelling, calf tenderness Back exam: Present: normal inspection. Absent: CVA tenderness (R), CVA tenderness (L) Course Vital Signs 09/26/24 09/26/24 11:00 15:16 Temperature 97.8 F Pulse Rate 74 76 Respiratory 22 18 Rate Blood Pressure 140/91 140/95 O2 Sat by Pulse 99 Oximetry Medical Decision Making - Medical Decision Making Was pt. sent in by a medical professional or institution (, PA, RADIATION ONCOLOGY MANAGER, urgent care, hospital, or senior living...) When possible be specific @ -No Did you speak to anyone other than the patient for history (EMS, parent, family, police, friend...)? What history was obtained from this source @ -No Did you review nursing and triage notes (agree or disagree)? Why? @ -I reviewed and agree with nursing and triage notes Were old charts reviewed (outside hosp., previous admission, EMS record, old EKG, old radiological studies, urgent care reports/EKG's, senior living records)? Report findings @ -No old charts were reviewed Differential Diagnosis (chest pain, altered mental status, abdominal pain women, abdominal pain men, vaginal bleeding, weakness, fever, dyspnea, syncope, headache, dizziness, GI bleed, back pain, seizure, CVA, palpatations, mental health, musculoskeletal)? @ -Differential Abdominal Pain Women: Appendicitis, Cholecystitis, diverticulosis, ischemic bowel, pancreatitis, hepatitis, UTI, gastroenteritis, AAA, incarcerated hernia, bowel obstruction, constipation, inflammatory bowel, hepatitis, peptic ulcer disease, splenic infarction, perforated viscus, vulvitis, ovarian torsion, PID, kidney stone, placenta abruption, this is not meant to be an all-inclusive list EKG interpreted by me (3pts min.). @ -None X-rays interpreted by me (1pt min.). @ -None done CT interpreted by me (1pt min.). @ -None done U/S interpreted by me (1pt. min.). @ -None done What testing was considered but not performed or refused? (CT, X-rays, U/S, labs)? Why? @ -None What meds were considered but not given or refused? Why? @ -None Did you discuss the management of the patient with other professionals (professionals i.e. , PA, RADIATION ONCOLOGY MANAGER, lab, RT, psych nurse, director of social work, telemetry rn, teacher, personnel training officer, case planner)? Give summary @ -No Was smoking cessation discussed for >3mins.? @ -No Was critical care preformed (if so, how long)? @ -No Were there social determinants of health that impacted care today? How? (Homelessness, low income, unemployed, alcoholism, drug addiction, transportation, low edu. Level, literacy, decrease access to med. care, [facility], re hab)? @ -No Was there de-escalation of care discussed even if they declined (Discuss DNR or withdrawal of care, Hospice)? DNR status @ -No What co-morbidities impacted this encounter? (DM, HTN, Smoking, COPD, CAD, Cancer, CVA, ARF, Chemo, Hep., AIDS, mental health diagnosis, sleep apnea, morbid obesity)? @ -None Was patient admitted / discharged? Hospital course, mention meds given and route, prescriptions, significant lab abnormalities, going to OR and other pertinent info. @ -Discharge. 34-year-old female presents emergency department with epigastric abdominal pain, nausea and vomiting. Overall patient is well-appearing. She has mild tenderness to the pain of the epigastric with no signs of rebound tenderness or rigidity. She is provided with IV fluids, antiemetics, Toradol for pain relief. Laboratory testing remarkable for leukocytosis of 13.66 likely secondary to emesis that is reactive. CMP is unremarkable. Urinalysis no signs of infection, hCG is negative. On reevaluation patient states that she is feeling much better and has had no episodes emesis and nausea and suicide after medications. Repeat abdominal examination is unremarkable. Patient is stable for discharge. Recommend she follow clear liquid diet over 24 hours and slowly reintroducing foods after. Follow-up with primary care provider. Case discussed with Dr. miller Undiagnosed new problem with uncertain prognosis? @ -No Drug Therapy requiring intensive monitoring for toxicity (Heparin, Nitro, Insulin, Cardizem)? @ -No Were any procedures done? @ -No Diagnosis/symptom? @ -acute nausea and vomiting Acute, or Chronic, or Acute on Chronic? @ -acute Uncomplicated (without systemic symptoms) or Complicated (systemic symptoms)? @ -uncomplicated Side effects of treatment? @ -No Exacerbation, Progression, or Severe Exacerbation? @ -No Poses a threat to life or bodily function? How? (Chest pain, USA, MS, pneumonia, PE, COPD, DKA, ARF, appy, cholecystitis, CVA, Diverticulitis, Homicidal, Suicidal, threat to staff... and all critical care pts) @ -No - Lab Data Result diagrams: 09/26/24 11:12 09/26/24 11:12 Lab Results 09/26/24 09/26/24 09/26/24 Range/Units 11:12 11:12 11:13 WBC 13.66 H (4.50-10.00) 10*3/uL RBC 5.32 H (4.10-5.20) 10*6/uL Hgb 15.5 H (12.0-15.0) g/dL Hct 44.2 (37.2-46.3) % MCV 83.1 (80.0-97.0) fL MCH 29.1 (27.0-32.0) pg MCHC 35.1 (32.0-37.0) g/dL Plt Count 389 (140-440) 10*3/uL MPV 9.9 (9.5-12.2) fL Immature Gran % (Auto) 0.4 % Neutrophils % 81.1 % Lymphocytes % 12.6 % Monocytes % 5.0 % Eosinophils % 0.2 % Basophils % 0.7 % Immature Gran # 0.05 H (0.00-0.04) 10*3/uL Neutrophils # 11.09 H (1.80-7.70) 10*3/uL Lymphocytes # 1.72 (0.90-5.00) 10*3/uL Monocytes # 0.68 (0.20-1.00) 10*3/uL Eosinophils # 0.03 L (0.04-0.35) 10*3/uL Basophils # 0.09 (0.00-0.10) 10*3/uL Sodium 136 L (137-145) mmol/L Potassium 4.3 (3.5-5.1) mmol/L Chloride 105 (98-107) mmol/L Carbon Dioxide 19 L (22-30) mmol/L Anion Gap 12 mmol/L BUN 12 (7-17) mg/dL Creatinine 0.72 (0.52-1.04) mg/dL Est GFR (CKD-EPI)AfAm >90 (>60 ml/min/1.73 sqM) Est GFR (CKD-EPI)NonAf >90 (>60 ml/min/1.73 sqM) Glucose 106 H (74-99) mg/dL Plasma Lactic Acid [place] 1.2 (0.7-2.0) mmol/L Calcium 10.0 (8.4-10.2) mg/dL Total Bilirubin 0.8 (0.2-1.3) mg/dL AST 37 H (14-36) U/L ALT 33 (4-34) U/L Alkaline Phosphatase 66 (38-126) U/L Total Protein 8.1 (6.3-8.2) g/dL Albumin 4.8 (3.5-5.0) g/dL Amylase 107 (30-110) U/L Lipase 105 (23-300) U/L Urine Color Urine Appearance (Clear) Urine pH (5.0-8.0) Ur Specific [place] (1.001-1.035) Urine Protein (Negative) Urine Glucose (UA) (Negative) Urine Ketones (Negative) Urine Blood (Negative) Urine Nitrite (Negative) Urine Bilirubin (Negative) Urine Urobilinogen (<2.0) mg/dL Ur Leukocyte Esterase (Negative) Urine HCG, Qual (Not Detectd) 09/26/24 09/26/24 Range/Units 13:55 13:55 WBC (4.50-10.00) 10*3/uL RBC (4.10-5.20) 10*6/uL Hgb (12.0-15.0) g/dL Hct (37.2-46.3) % MCV (80.0-97.0) fL MCH (27.0-32.0) pg MCHC (32.0-37.0) g/dL Plt Count (140-440) 10*3/uL MPV (9.5-12.2) fL Immature Gran % (Auto) % Neutrophils % % Lymphocytes % % Monocytes % % Eosinophils % % Basophils % % Immature Gran # (0.00-0.04) 10*3/uL Neutrophils # (1.80-7.70) 10*3/uL Lymphocytes # (0.90-5.00) 10*3/uL Monocytes # (0.20-1.00) 10*3/uL Eosinophils # (0.04-0.35) 10*3/uL Basophils # (0.00-0.10) 10*3/uL Sodium (137-145) mmol/L Potassium (3.5-5.1) mmol/L Chloride (98-107) mmol/L Carbon Dioxide (22-30) mmol/L Anion Gap mmol/L BUN (7-17) mg/dL Creatinine (0.52-1.04) mg/dL Est GFR (CKD-EPI)AfAm (>60 ml/min/1.73 sqM) Est GFR (CKD-EPI)NonAf (>60 ml/min/1.73 sqM) Glucose (74-99) mg/dL Plasma Lactic Acid [place] (0.7-2.0) mmol/L Calcium (8.4-10.2) mg/dL Total Bilirubin (0.2-1.3) mg/dL AST (14-36) U/L ALT (4-34) U/L Alkaline Phosphatase (38-126) U/L Total Protein (6.3-8.2) g/dL Albumin (3.5-5.0) g/dL Amylase (30-110) U/L Lipase (23-300) U/L Urine Color Yellow Urine Appearance Clear (Clear) Urine pH 5.5 (5.0-8.0) Ur Specific [place] 1.032 (1.001-1.035) Urine Protein Negative (Negative) Urine Glucose (UA) Negative (Negative) Urine Ketones 1+ H (Negative) Urine Blood Negative (Negative) Urine Nitrite Negative (Negative) Urine Bilirubin Negative (Negative) Urine Urobilinogen <2.0 (<2.0) mg/dL Ur Leukocyte Esterase Negative (Negative) Urine HCG, Qual Not Detected (Not Detectd) Disposition Clinical Impression: Nausea and vomiting Disposition: HOME SELF-CARE Condition: Good Instructions (If sedation given, give patient instructions): Acute Nausea and Vomiting (ED) Additional Instructions: Please return to the Emergency Department if symptoms worsen or any other concerns. Is patient prescribed a controlled substance at d/c from ED?: No Referrals: Tod Willett MD [Primary Care Provider] - 1-2 days Time of Disposition: 14:35
[2024-09-26] MEDS: ONDANSETRON 4 MG/2 ML VIAL IVP STA (11:33)
[2024-09-26] MEDS: KETOROLAC 15 MG/ML 1 ML VIAL IVP STA (11:33)
[2024-09-26] MEDS: SODIUM CHLORIDE 0.9% 1,000 ML IV STA (11:34)
[2024-09-26 12:03] LABS: Basophils # (A) 0.09 10*3/uL (0.00-0.10); Basophils % (A) 0.7 %; Eosinophils # (A) 0.03 10*3/uL (0.04-0.35); Eosinophils % (A) 0.2 %; HCT 44.2 % (37.2-46.3); HGB 15.5 g/dL (12.0-15.0); Lymphocytes # (A) 1.72 10*3/uL (0.90-5.00); Lymphocytes % (A) 12.6 %; MCH 29.1 pg (27.0-32.0); MCHC 35.1 g/dL (32.0-37.0); MCV 83.1 fL (80.0-97.0); Mean Platelet Volume 9.9 fL (9.5-12.2); Monocytes # (A) 0.68 10*3/uL (0.20-1.00); Neutrophils # (A) 11.09 10*3/uL (1.80-7.70); Neutrophils % (A) 81.1 %; Platelet Count 389 10*3/uL (140-440); RBC 5.32 10*6/uL (4.10-5.20); RDW 12.5 % (11.5-14.5); WBC 13.66 10*3/uL (4.50-10.00)
[2024-09-26 12:14] LABS: ALT 33 U/L (4-34); AST 37 U/L (14-36); African American GFR (CKD) >90 (>60 ml/min/1.73 sqM); Albumin 4.8 g/dL (3.5-5.0); Alkaline Phosphatase 66 U/L (38-126); Amylase 107 U/L (30-110); Anion Gap 12 mmol/L; Blood Urea Nitrogen 12 mg/dL (7-17); Carbon Dioxide 19 mmol/L (22-30); Chloride 105 mmol/L (98-107); Glucose 106 mg/dL (74-99); Lipase 105 U/L (23-300); Non-African American GFR(CKD) >90 (>60 ml/min/1.73 sqM); Potassium 4.3 mmol/L (3.5-5.1); Sodium 136 mmol/L (137-145); Total Bilirubin 0.8 mg/dL (0.2-1.3); Total Protein 8.1 g/dL (6.3-8.2)
[2024-09-26 14:13] LABS: Appearance,Urine Clear (Clear); Bilirubin,Urine Negative (Negative); Blood,Urine Negative (Negative); Color,Urine Yellow; Glucose,Urine (UA) Negative (Negative); Ketones,Urine 1+ (Negative); Leukocyte Esterase,Urine Negative (Negative); Nitrite,Urine Negative (Negative); PH, Urine 5.5 (5.0-8.0); Protein,Urine Negative (Negative); Specific Gravity,Urine 1.032 (1.001-1.035); Urobilinogen,Urine <2.0 mg/dL (<2.0)
[2024-09-26 15:17] VITALS: BP 140/95; PULSE 76; RESP 18
== END 2024-09-26 15:17 | disposition home or self-care (01) ==
LOC: EC 10:50
DX: R11.2 Nausea with vomiting, unspecified (principal); Z91.018 Allergy to other foods
CPT/HCPCS: 36415; 80053; 82150; 83605; 83690; 85025; 81003; 81025; 99284; 96374; 96375; 96361; J2405; J1885

== ENCOUNTER 2024-10-08 05:20 | Emergency (ER) | payer BC ==
[2024-10-08 05:25] VITALS: RESP 18; TEMP 97.9
--- NOTE | 2024-10-08 05:36 | ED ---
General Adult HPI - General Source: patient Mode of arrival: wheelchair Limitations: no limitations <Uche Gross - Last Filed: 10/08/24 06:41> <Fabricio Allen - Last Filed: 10/08/24 09:52> - General Chief complaint: Nausea/Vomiting/Diarrhea Stated complaint: Abdominal Pain, Nausea, Vomiting Time Seen by Provider: 10/08/24 05:26 - History of Present Illness Initial comments: Dictation was produced using [employer] dictation software. please excuse any grammatical, word or spelling errors. Chief Complaint: 34-year-old female presents to the emergency department with epigastric abdominal pain History of Present Illness: 34-year-old female presents to the emergency department for approximately 12 hours of epigastric abdominal pain. Patient has chronic abdominal history and underwent evaluation by GI specialist in the past. History of gastritis otherwise no other known issues. She was seen here in the emergency department almost 2 weeks ago where she was evaluated had an ultrasound S1 to be unremarkable. She had lab work evaluation done patient was discharged. Denies any fever chills or night sweats. Patient is accompanied by significant other states that she appears to be much more comfortable than usual. The ROS documented in this emergency department record has been reviewed and confirmed by me. Those systems with pertinent positive or negative responses have been documented in the HPI. All other systems are other negative and/or noncontributory. (Uche Gross) - Related Data Home Medications Medication Instructions Recorded Confirmed Pantoprazole Sodium [Protonix] 40 mg PO DAILY PRN 03/06/24 03/06/24 Previous Rx's Medication Instructions Recorded Ondansetron [Zofran] 4 mg PO Q4H PRN #30 tab 09/17/21 Ondansetron Odt [Zofran Odt] 4 mg PO Q8HR PRN #20 tab 06/04/24 Metoclopramide [Reglan] 10 mg PO ACHS #16 tab 10/08/24 Allergies Allergy/AdvReac Type Severity Reaction Status Date / Time hazelnut Allergy Unknown Verified 10/08/24 05:21 Review of Systems ROS Other: All systems not noted in ROS Statement are negative. <Uche Gross - Last Filed: 10/08/24 06:41> ROS Other: All systems not noted in ROS Statement are negative. <Fabricio Allen - Last Filed: 10/08/24 09:52> ROS Statement: Those systems with pertinent positive or pertinent negative responses have been documented in the HPI. Past Medical History Past Medical History: GERD/Reflux Additional Past Medical History / Comment(s): pancreatitis History of Any Multi-Drug Resistant Organisms: MRSA Date of last positivie culture/infection: 02/26/21 MDRO Source:: Left 2nd Toe Past Surgical History: Hernia Repair, Tonsillectomy Past Anesthesia/Blood Transfusion Reactions: No Reported Reaction, Family History of Problems w/ Anesthesia Additional Past Anesthesia/Blood Transfusion Reaction / Comment(s): no hx. blood transfusion; mom PONV Past Psychological History: No Psychological Hx Reported Smoking Status: Never smoker Past Alcohol Use History: None Reported Past Drug Use History: None Reported - Past Family History family \ Family Medical History: No Reported History <Uche Gross - Last Filed: 10/08/24 06:41> General Exam Limitations: no limitations <Uche Gross - Last Filed: 10/08/24 06:41> - General Exam Comments Initial Comments: PHYSICAL EXAM: General Impression: Alert and oriented x3, acute distress secondary to pain HEENT: Normocephalic atraumatic, extra-ocular movements intact, pupils equal and reactive to light bilaterally, mucous membranes moist. Cardiovascular: Heart regular rate and rhythm Chest: Able to complete full sentences, no retractions, no tachypnea Abdomen: abdomen soft, epigastric abdominal tenderness, non-distended, no organomegaly Musculoskeletal: Pulses present and equal in all extremities, no peripheral edema Motor: no focal deficits noted Neurological: CN II-XII grossly intact, no focal motor or sensory deficits noted Skin: Intact with no visualized rashes Psych: Normal affect and mood (Uche Gross) Course Vital Signs 10/08/24 05:21 Temperature 97.9 F Pulse Rate 104 H Respiratory 18 Rate Blood Pressure 107/67 O2 Sat by Pulse 99 Oximetry EKG Findings - EKG Comments: EKG Findings:: My EKG interpretation: Ventricular rate, sinus rhythm, parable 148, QRS 93, QTc 451. No NH prolongation, no QTC prolongation, no ST or T-wave changes noted. Overall, this EKG is unremarkable <Uche Gross - Last Filed: 10/08/24 06:41> Medical Decision Making - Lab Data Result diagrams: 10/08/24 05:46 10/08/24 05:46 <Uche Gross - Last Filed: 10/08/24 06:41> - Lab Data Result diagrams: 10/08/24 05:46 10/08/24 05:46 <AlejandroFabricio - Last Filed: 10/08/24 09:52> - Medical Decision Making Was pt. sent in by a medical professional or institution (, PA, IGNITER ASSEMBLER, urgent care, hospital, or [place] health care facility...) When possible be specific @ -[No] Did you speak to anyone other than the patient for history (EMS, parent, family, police, friend...)? What history was obtained from this source @ -[No] Did you review nursing and triage notes (agree or disagree)? Why? @ -[I reviewed and agree with nursing and triage notes] Were old charts reviewed (outside hosp., previous admission, EMS record, old EKG, old radiological studies, urgent care reports/EKG's, [place] health care facility records)? Report findings @ -[No old charts were reviewed] Differential Diagnosis (chest pain, altered mental status, abdominal pain women, abdominal pain men, vaginal bleeding, musculoskeletal, weakness, fever, dyspnea, syncope, headache, dizziness, GI bleed, back pain, seizure, CVA, palpatations, mental health)? @ -Differential Abdominal Pain Women: Appendicitis, Cholecystitis, diverticulosis, ischemic bowel, pancreatitis, hepatitis, UTI, gastroenteritis, AAA, incarcerated hernia, bowel obstruction, constipation, inflammatory bowel, hepatitis, peptic ulcer disease, splenic infarction, perforated viscus, vulvitis, ovarian torsion, PID, kidney stone, placenta abruption, this is not meant to be an all-inclusive list EKG interpreted by me (3pts min.). @ -[None done] X-rays interpreted by me (1pt min.). @ -[None done] CT interpreted by me (1pt min.). @ -[None done] U/S interpreted by me (1pt. min.). @ -[None done] What testing was considered but not performed or refused? (CT, X-rays, U/S, labs)? Why? @ -[None] What meds were considered but not given or refused? Why? @ -[None] Was smoking cessation discussed for >3mins.? @ -[No] Were there social determinants of health that impacted care today? How? (Homelessness, low income, unemployed, alcoholism, drug addiction, transportation, low edu. Level, literacy, decrease access to med. care, usp, rehab)? @ -[No] Was there de-escalation of care discussed even if they declined (Discuss DNR or withdrawal of care, Hospice)? DNR status @ -[No] What co-morbidities impacted this encounter? (DM, HTN, Smoking, COPD, CAD, Cancer, CVA, ARF, Chemo, Hep., AIDS, mental health diagnosis, sleep apnea, morbid obesity)? @ -Chronic abdominal pain, history of pancreatitis Was patient admitted / discharged? Hospital course, mention meds given and ro lime, prescriptions, significant lab abnormalities, going to OR and other pertinent info. @ -34-year-old female presents to the emergency department with acute on chronic epigastric abdominal pain, nausea vomiting. Vital signs are stable. Patient care signed out to Dr. Allen at 7:[address] imaging and final disposition Did you discuss the management of the patient with other professionals (professionals i.e. , PA, IGNITER ASSEMBLER, lab, RT, psych nurse, social services director, cryptographic vulnerability analyst, teacher, senior commercial loan officer, senior case manager)? Give summary @ -[No] Was critical care preformed (if so, how long)? @ -[No] Undiagnosed new problem with uncertain prognosis? @ -[No] Drug Therapy requiring intensive monitoring for toxicity (Heparin, Nitro, Insulin, Cardizem)? @ -[No] Were any procedures done? @ -[No] Diagnosis/symptom? Acute, or Chronic, or Acute on Chronic? Uncomplicated (without systemic symptoms) or Complicated (systemic symptoms)? @ -[default] Side effects of treatment? @ -[No] Exacerbation, Progression, or Severe Exacerbation? @ -[No] Poses a threat to life or bodily function? How? (Chest pain, USA, PA, pneumonia, PE, COPD, DKA, ARF, appy, cholecystitis, CVA, Diverticulitis, Homicidal, Suicidal, threat to staff... and all critical care pts) @ -[No] (Uche Gross) CT of the abdomen pelvis showed no acute abnormality and it is interpreted by myself Was patient admitted / discharged? Hospital course, mention meds given and route, prescriptions, significant lab abnormalities, going to OR and other pertinent info. @ -I went back into reevaluate the patient after he was signed out to me at [address] Gross. Patient continued to be nauseous have a little abdominal pain. I gave the patient Reglan and Toradol I went back and reevaluated her she was feeling considerably better. Undiagnosed new problem with uncertain prognosis? @ -No Drug Therapy requiring intensive monitoring for toxicity (Heparin, Nitro, Insulin, Cardizem)? @ -No Were any procedures done? @ -No Diagnosis/symptom? @ -Acute vomiting Acute, or Chronic, or Acute on Chronic? @ -Acute Uncomplicated (without systemic symptoms) or Complicated (systemic symptoms)? @ -Complicated Side effects of treatment? @ -No Exacerbation, Progression, or Severe Exacerbation? @ -No Poses a threat to life or bodily function? How? (Chest pain, USA, PA, pneumonia, PE, COPD, DKA, ARF, appy, cholecystitis, CVA, Diverticulitis, Homicidal, Suicidal, threat to staff... and all critical care pts) @ -No (Fabricio Allen) - Lab Data Lab Results 10/08/24 10/08/24 Range/Units 05:46 05:46 WBC 9.64 (4.50-10.00) 10*3/uL RBC 5.48 H (4.10-5.20) 10*6/uL Hgb 15.9 H (12.0-15.0) g/dL Hct 45.4 (37.2-46.3) % MCV 82.8 (80.0-97.0) fL MCH 29.0 (27.0-32.0) pg MCHC 35.0 (32.0-37.0) g/dL Plt Count 403 (140-440) 10*3/uL MPV 10.2 (9.5-12.2) fL Immature Gran % (Auto) 0.3 % Neutrophils % 89.2 % Lymphocytes % 5.5 % Monocytes % 4.7 % Eosinophils % 0.2 % Basophils % 0.1 % Immature Gran # 0.03 (0.00-0.04) 10*3/uL Neutrophils # 8.60 H (1.80-7.70) 10*3/uL Lymphocytes # 0.53 L (0.90-5.00) 10*3/uL Monocytes # 0.45 (0.20-1.00) 10*3/uL Eosinophils # 0.02 L (0.04-0.35) 10*3/uL Basophils # 0.01 (0.00-0.10) 10*3/uL Sodium 135 L (137-145) mmol/L Potassium 4.1 (3.5-5.1) mmol/L Chloride 104 (98-107) mmol/L Carbon Dioxide 20 L (22-30) mmol/L Anion Gap 11 mmol/L BUN 15 (7-17) mg/dL Creatinine 0.76 (0.52-1.04) mg/dL Est GFR (CKD-EPI)AfAm >90 (>60 ml/min/1.73 sqM) Est GFR (CKD-EPI)NonAf >90 (>60 ml/min/1.73 sqM) Glucose 114 H (74-99) mg/dL Calcium 9.8 (8.4-10.2) mg/dL Total Bilirubin 1.4 H (0.2-1.3) mg/dL AST 33 (14-36) U/L ALT 29 (4-34) U/L Alkaline Phosphatase 70 (38-126) U/L Total Protein 7.9 (6.3-8.2) g/dL Albumin 4.9 (3.5-5.0) g/dL Lipase 76 (23-300) U/L HCG, Quant <2.4 mIU/mL Disposition <Uche Gross - Last Filed: 10/08/24 06:41> Is patient prescribed a controlled substance at d/c from ED?: No Time of Disposition: 09:52 <Fabricio Allen - Last Filed: 10/08/24 09:52> Clinical Impression: Acute vomiting Disposition: HOME SELF-CARE Instructions (If sedation given, give patient instructions): Acute Nausea and Vomiting (ED) Additional Instructions: Patient should follow-up with Dr. Phillips Patient should take Reglan as prescribed Prescriptions: Metoclopramide [Reglan] 10 mg PO ACHS #16 tab Referrals: Nedic,Tod, MD [Primary Care Provider] - 1-2 days
[2024-10-08] MEDS: HYDROmorphone 1 MG/ML 1 ML SYRINGE IVP STA (05:58)
[2024-10-08] MEDS: SODIUM CHLORIDE 0.9% 1,000 ML IV STA (06:02)
[2024-10-08 06:16] LABS: Basophils # (A) 0.01 10*3/uL (0.00-0.10); Basophils % (A) 0.1 %; Eosinophils # (A) 0.02 10*3/uL (0.04-0.35); Eosinophils % (A) 0.2 %; HCT 45.4 % (37.2-46.3); HGB 15.9 g/dL (12.0-15.0); Lymphocytes # (A) 0.53 10*3/uL (0.90-5.00); Lymphocytes % (A) 5.5 %; MCV 82.8 fL (80.0-97.0); Mean Platelet Volume 10.2 fL (9.5-12.2); Monocytes # (A) 0.45 10*3/uL (0.20-1.00); Monocytes % (A) 4.7 %; Neutrophils % (A) 89.2 %; Platelet Count 403 10*3/uL (140-440); RBC 5.48 10*6/uL (4.10-5.20); RDW 12.3 % (11.5-14.5); WBC 9.64 10*3/uL (4.50-10.00)
[2024-10-08] MEDS ORDERED: MAG HYDROX/AL HYDROX/SIMETH 30 ML CUP PO PRN (06:30)
[2024-10-08 06:33] LABS: ALT 29 U/L (4-34); AST 33 U/L (14-36); African American GFR (CKD) >90 (>60 ml/min/1.73 sqM); Albumin 4.9 g/dL (3.5-5.0); Alkaline Phosphatase 70 U/L (38-126); Anion Gap 11 mmol/L; Blood Urea Nitrogen 15 mg/dL (7-17); Calcium 9.8 mg/dL (8.4-10.2); Carbon Dioxide 20 mmol/L (22-30); Chloride 104 mmol/L (98-107); Glucose 114 mg/dL (74-99); Lipase 76 U/L (23-300); Non-African American GFR(CKD) >90 (>60 ml/min/1.73 sqM); Potassium 4.1 mmol/L (3.5-5.1); Sodium 135 mmol/L (137-145); Total Bilirubin 1.4 mg/dL (0.2-1.3); Total Protein 7.9 g/dL (6.3-8.2)
[2024-10-08 06:49] LABS: HCG,Quantitative Serum <2.4 mIU/mL
[2024-10-08] MEDS: HYOSCYAMINE SULFATE 0.125 MG TAB PO STA (06:52)
[2024-10-08] MEDS: ONDANSETRON 4 MG/2 ML VIAL IVP STA (07:21)
--- NOTE | 2024-10-08 07:59 | CT ---
EXAMINATION TYPE: CT abdomen pelvis w con CT DLP: 943.7 mGycm, Automated exposure control for dose reduction was used. DATE OF EXAM: 10/08/2024 7:43 AM COMPARISON: Abdominal ultrasound 06/04/2024, 03/21/2022, 12/03/2021, CT chest abdomen pelvis 12/03/2021, MR abdomen 09/17/2021 CLINICAL INDICATION:Female, 34 years old with history of severe epigastric abdominal pain; Severe Epi gastric Pain with NVD; History of pancreatitis TECHNIQUE: Standard CT of the abdomen and pelvis following the administration of 100 cc of Isovue 3 00 IV contrast material. Coronal and sagittal reformats were performed. FINDINGS: LOWER CHEST: Unremarkable ABDOMEN LIVER: Enlarged measuring 22.6 cm in CC dimension. No focal lesion. GALLBLADDER AND BILE DUCTS: Unremarkable. PANCREAS: Stable 6 mm cyst within the pancreatic body. No ductal dilatation. No surrounding inflammat ory changes. The pancreas enhances homogeneously. No surrounding fluid collections. SPLEEN: Unremarkable. ADRENAL GLANDS: Unremarkable. KIDNEYS AND URETERS: No evidence of hydronephrosis or renal calculus. The kidneys enhance symmetrical ly. Contrast is demonstrated within both collecting systems and proximal ureters on the delayed phase . PELVIS BLADDER: Incompletely distended but grossly unremarkable. REPRODUCTIVE: Unremarkable. ABDOMEN & PELVIS STOMACH AND BOWEL: Stomach and duodenum are unremarkable. No focal bowel wall thickening or surroundi ng inflammatory changes. The appendix is not definitively visualized. No surrounding inflammatory estelita nges within the right lower quadrant. No evidence of bowel obstruction. PERITONEUM: No evidence of pneumoperitoneum. Trace free fluid in the posterior cul-de-sac. VASCULATURE: No evidence of aortic aneurysm. Few pelvic phleboliths. MUSCULOSKELETAL: No acute osseous abnormalities. Degenerative disc disease with vacuum disease L5-S1. LYMPH NODES: No evidence for lymphadenopathy. SOFT TISSUE/ABDOMINAL WALL: Unremarkable IMPRESSION: 1. No CT evidence for acute abdominal/pelvic process. 2. Stable pancreatic body 6 mm cyst which may represent a pseudocyst versus side branch IPMN. 3. Hepatomegaly. [facility], , 10/08/2024 7:56 AM
[2024-10-08] MEDS: LIDOCAINE VISCOUS 2% 15 ML CUP PO ONE (08:10)
[2024-10-08] MEDS: KETOROLAC 15 MG/ML 1 ML VIAL IVP STA (09:17)
[2024-10-08] MEDS: METOCLOPRAMIDE 5 MG/ML 2 ML VIAL IVP STA (09:20)
[2024-10-08 10:03] VITALS: BP 93/59; PULSE 79
== END 2024-10-08 10:11 | disposition home or self-care (01) ==
LOC: EC 05:20
DX: G89.29 Other chronic pain (principal); R11.2 Nausea with vomiting, unspecified; R10.9 Unspecified abdominal pain; Z87.19 Personal history of other diseases of the digestive system; Z91.018 Allergy to other foods
CPT/HCPCS: 36415; 93005; 80053; 83690; 85025; 84702; 74177; 99284; 96374; 96375 ×3; 96361; J2765; J2405; J1171; J1885; Q9967